=== PATIENT | female | born 1945 | race Caucasian/White ===

== ENCOUNTER 2016-08-04 02:23 | Inpatient (IN) | payer BC, OTHER ==
[2016-08-04] VITALS (28 sets, daily range): BP systolic 74–152; BP diastolic 48–88; PULSE 80–176; TEMP 36.4–36.8; O2SAT 90–100; BMI 21.1
[~2016-08-04] VITALS: Ht 165.1 cm; Wt 72.0 kg
[~2016-08-04 02:23] MED LIST: ALEN70TA4 PO; ARTIOIN27 OPR; CHOL100010 PO; INSUINJ SC; INSUINJ17 SC; LISI-789 PO; LORA0.5T12 PO; METH5TAB5 PO; MULTTAB83 PO; POLY1DRO OPR; SIMV5TAB5 PO
--- NOTE | 2016-08-04 03:13 | EMERGENCY ROOM VISIT NOTE ---
History Report prepared by Colette: Mai West Under the Supervision of: Dr. Carol Quinteros D.O. First contact with patient: 02:49 Chief Complaint: FLU LIKE SX Stated Complaint: DIABETIC -SICK WITH FLU TUE,WEAK,RIB PAIN History of Present Illness The patient is a 71 year old female who presents to the Emergency Room with complaints of worsening illness symptoms beginning 5 weeks ago. The patient has seen many doctors for her symptoms and was first told she had Influenza. The patient was told to drunk plenty of fluids. She is a diabetic. The patient has a wet cough that has been worsening and pain in the lower right side of her ribs. She has also been experiencing weakness, excess diaphoresis, and chills. She denies abdominal pain. 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 A total of 10 systems reviewed and were otherwise negative. Past Medical & Surgical Medical Problems: (1) Altered mental status (2) Altered mental status (3) Dyslipidemia (4) Hypoglycemia (5) Hypoglycemia (6) Hypoglycemia (7) Osteoporosis Nos (8) Pneumonia (9) Type 1 diabetes Surgical Problems: (1) Hip fracture requiring operative repair Family History Diabetes mellitus Social History Smoking Status: Never Smoker Alcohol Use: none Drug Use: none Marital Status: Housing Status: lives with family Occupation Status: retired Current/Historical Medications Scheduled Alendronate Sodium (Fosamax), 70 MG PO WK Artificial Tear Ointment (Refresh P.m.), 1 APPLN OPR HS Cholecalciferol (Vitamin D3), 1,000 UNIT PO DAILY Insulin Human NPH (Humulin N), UNITS SQ BID Insulin Human Regular (Humulin R), UNITS SQ QAM Lisinopril (Zestril), 1.25 MG PO QAM Lorazepam (Lorazepam), 1 TAB PO HS Multiple Vitamin (Multi-Vitamin), 1 TAB PO DAILY Polyethylene Glycol-Propylene (Systane Gel), 1 DROP OPR HS Simvastatin (Zocor), 5 MG PO HS Allergies Coded Allergies: Adhesives (Verified Allergy, Mild, RASH-BANDAIDS, 08/04/16) Sulfa Antibiotics (Verified Allergy, Unknown, `, 08/04/16) Physical Exam Vital Signs Date Time Temp Pulse Resp B/P Pulse Ox O2 Delivery O2 Flow Rate FiO2 08/04/16 05:12 36.4 108 26 108/58 92 08/04/16 05:11 108 26 108/58 92 Nasal Cannula 6.0 08/04/16 04:32 36.4 105 28 115/70 91 Nasal Cannula 6.0 08/04/16 04:03 112 26 116/69 88 Nasal Cannula 5.0 08/04/16 03:32 104 08/04/16 03:30 104 26 128/69 90 Nasal Cannula 5.0 08/04/16 03:11 90 Nasal Cannula 4.0 08/04/16 03:08 88 Nasal Cannula 3.0 08/04/16 02:53 90 Nasal Cannula 2.0 08/04/16 02:32 36.5 116 18 138/81 86 Room Air Physical Exam General: Uncomfortable appearing with moist cough. The patient is somewhat cachectic appearing HEENT: Head - normocephalic and atraumatic Pupils are equal, round, and reactive to light. Extraocular eye muscles are intact, and sclera are anicteric. Nose - moist nasal mucosa without discharge. Mouth - moist buccal mucosa. Oropharynx is nonerythematous and there is no tonsillar exudate or edema noted. Neck: Supple; no JVD, nuchal rigidity, cervical lymphadenopathy. Heart: Regular rate and rhythm. There is a normal S1 and S2 with no murmurs, clicks, or gallops appreciated. Chest: Nonreproducible discomfort with palpation over anterior chest wall. Lungs: Absent right bases, rhonchi bilaterally. Abdomen: Soft, completely nontender, nondistended, with good bowel sounds. There are no palpable pulsatile masses or hepatosplenomegaly. There is no guarding, rigidity, or rebound noted. Extremities: No evidence of cyanosis, clubbing, or edema. There are easily palpable peripheral pulses. Skin: pale, warm and dry with good turgor and no rashes. Medical Decision & Procedures ER Provider Diagnostic Interpretation: X-ray results as stated below per interpretation by me: Chest: Large right side middle and lower pneumonia. Laboratory Results 08/04/16 03:15 Red Blood Count 4.69, Mean Corpuscular Volume 90.2, Mean Corpuscular Hemoglobin 31.6, Mean Corpuscular Hemoglobin Concent 35.0, Mean Platelet Volume 11.1 08/04/16 03:15 Test 08/04/16 03:15 08/04/16 03:19 White Blood Count 8.70 K/uL (4.8-10.8) Red Blood Count 4.69 M/uL (4.2-5.4) Hemoglobin 14.8 g/dL (12.0-16.0) Hematocrit 42.3 % (37-47) Mean Corpuscular Volume 90.2 fL (80-100) Mean Corpuscular Hemoglobin 31.6 pg (25-34) Mean Corpuscular Hemoglobin Concent 35.0 g/dl (32-36) Platelet Count 252 K/uL (130-400) Mean Platelet Volume 11.1 fL (7.4-10.4) RDW Standard Deviation 46.1 fL (36.4-46.3) RDW Coefficient of Variation 13.9 % (11.5-14.5) Neutrophils % (Manual) 80.1 % Lymphocytes % (Manual) 11.3 % Monocytes % (Manual) 1.7 % Metamyelocytes % 5.2 % Myelocytes % 1.7 % Neutrophils # (Manual) 6.97 K/uL (1.4-6.5) Total Absolute Neutrophils 6.97 K/uL (1.4-6.5) Lymphocytes # (Manual) 0.98 K/uL (1.2-3.4) Total Absolute Lymphocytes 0.98 K/uL (1.2-3.4) Monocytes # (Manual) 0.15 K/uL (0.11-0.59) Metamyelocytes # 0.45 K/uL (0-0) Myelocytes # 0.15 K/uL (0-0) Toxic Granulation 3+ Toxic Vacuolation 2+ Prothrombin Time 12.4 SECONDS (9.0-12.0) Prothromb Time International Ratio 1.2 (0.9-1.1) Activated Partial Thromboplast Time 30.7 SECONDS (21.0-31.0) Partial Thromboplastin Ratio 1.2 Anion Gap 15.0 mmol/L (3-11) Est Creatinine Clear Calc Drug Dose 32.6 ml/min Estimated GFR () 43.7 Estimated GFR (Non- 37.7 BUN/Creatinine Ratio 32.0 (10-20) Calcium Level 8.3 mg/dl (8.5-10.1) Total Bilirubin 1.2 mg/dl (0.2-1) Aspartate Amino Transf (AST/SGOT) 118 U/L (15-37) Alanine Aminotransferase (ALT/SGPT) 68 U/L (12-78) Alkaline Phosphatase 149 U/L (45-117) Total Protein 6.8 gm/dl (6.4-8.2) Albumin 2.2 gm/dl (3.4-5.0) Globulin 4.6 gm/dl (2.5-4.0) Albumin/Globulin Ratio 0.5 (0.9-2) Bedside Lactic Acid Venous 6.34 mmol/L (0.90-1.70) Laboratory results per my review. Medications Administered Medications (Trade) Dose Ordered Sig/Sarthak Route Start Time Stop Time Status Last Admin Dose Admin Piperacillin Sod/ Tazobactam Sod (Zosyn Iv) 3.375 gm NOW STAT IV 08/04/16 03:43 08/04/16 03:45 DC 08/04/16 04:05 3.375 GM Levofloxacin 750 mg 750 mg NOW ONCE IV 08/04/16 03:45 08/04/16 03:46 DC 08/04/16 03:54 750 MG Vancomycin HCl/ Sodium Chloride (Vancomycin Inj/ Nss 250ml) 277 ml @ 125 mls/hr NOW STAT IV 08/04/16 04:56 08/04/16 07:08 08/04/16 05:10 125 MLS/HR Procedure IV Zosyn IV Levaquin ECG Indication: other (illness) Rate (beats per minute): 109 Rhythm: sinus tachycardia Findings: no acute ischemic change, no ectopy ED Course 0255: Past medical records reviewed. The patient was evaluated in room A10. A complete history and physical exam was performed. a septic protocol was performed. An EKG was obtained. 0308: The patient is hypoxic and will be put on oxygen. The patient went for a chest x-ray which revealed a large right-sided pneumonia. 0343: Zosyn Iv 3.375 gm IV, Levaquin / D5W 750 mg IV. 0348: Discussed the patient's case with Dr. Arthur Pacheco [facility]. The patient will be evaluated for further management. 0403: Upon reevaluation, I discussed findings and results with the patient. She verbalized agreement of the treatment plan. I spoke with Dr. Gibson of the [facility] Hospitalist Service. The patient will be evaluated for further management and care. 0437: Dr. Peters - [facility] ordered CT chest without contrast. The results showed pneumonia in the right middle and lower lobe. Medical Decision The patient is a 71 year old female who presents to the ED with illness symptoms. Differential diagnosis includes influenza, pneumonia, bronchitis, CHF. Lab findings show lactic acid 6.34, white blood cell count 8.7, stable H&H, 80% neutrophils, 5.2%metamyelocytes, BUN 45, creatine 1.4, glucose 167, total Bilirubin 1.2, AST 118, ALT 68, INR 1.2 The patient states that she's been sick for the past 5 weeks and now has a wet cough. She states that her anterior rib cage hurts significantly and believes that she may broken a rib. She had been to an urgent care center where they told her that she had a viral illness that was not influenza. She has not had a chest x-ray done in the last 5 weeks. Chest x-ray today shows significant pneumonia. This is consistent with her physical exam. The patient was hypoxic and is now on supplemental oxygen. She is receiving IV antibiotics. She will be evaluated by the [facility] hospitalist group. Consults Time Called: [phone] Consulting Physician: Dr. Arthur Pacheco [facility] Returned Call: [phone] Discussed the patient's case. The patient will be evaluated for further management. Impression Primary Impression: Pneumonia involving right lung Additional Impression: Hypoxia Scribe Attestation The scribe's documentation has been prepared under my direction and personally reviewed by me in its entirety. I confirm that the note above accurately reflects all work, treatment, procedures, and medical decision making performed by me. Departure Information Dispostion Being Evaluated By Hospitalist Referrals Steve Xie M.D. (PCP) Problem Qualifiers
[2016-08-04 03:35] LABS: HEMATOCRIT 42.3 % (37-47); MEAN CELL VOLUME 90.2 fL (80-100); MEAN CORPUSCULAR HEMOGLOBIN 31.6 pg (25-34); MEAN PLATELET VOLUME 11.1 fL (7.4-10.4); PLATELET COUNT 252 K/uL (130-400); RED BLOOD COUNT 4.69 M/uL (4.2-5.4)
[2016-08-04] MEDS ORDERED: PIPERACILLIN/TAZOBACTAM 3.375 GM/100ML D5W IV STA (03:43)
[2016-08-04] MEDS ORDERED: LEVAQUIN 750MG / 150ML D5W IV ONE (03:45)
[2016-08-04 03:51] LABS: INR 1.2 (0.9-1.1); PARTIAL THROMBOPLASTIN RATIO 1.2; PROTHROMBIN TIME (PATIENT) 12.4 SECONDS (9.0-12.0)
[2016-08-04 03:55] LABS: CALCIUM 8.3 mg/dl (8.5-10.1); CREATININE 1.4 mg/dl (0.60-1.20); POTASSIUM 3.6 mmol/L (3.5-5.1)
[2016-08-04 03:58] LABS: ALB/GLOB RATIO 0.5 (0.9-2)
[2016-08-04] MEDS ORDERED: CHOL1000 PO (03:59)
[2016-08-04] MEDS ORDERED: POLY1DRO2 OPR (04:00)
[2016-08-04] MEDS ORDERED: INSHNI SQ (04:02)
[2016-08-04] MEDS ORDERED: INSHRIE SQ (04:02)
[2016-08-04 04:14] LABS: COMPLETE YES; LYMPH ABS # 0.98 K/uL (1.2-3.4); LYMPHOCYTE % 11.3 %; META ABS # 0.45 K/uL (0-0); METAMYELOCYTE % 5.2 %; MYELOCYTE % 1.7 %; NEUTROPHILS % 80.1 %; TOXIC GRANULATION 3+; VACUOLIZATION 2+
[2016-08-04] MEDS ORDERED: GLUCOSE 40% GEL 15 GM TUBE PO PRN (04:30)
[2016-08-04] MEDS ORDERED: NITROGLYCERIN 0.4 MG SL PER TAB CHARGE SL PRN (04:30)
[2016-08-04] MEDS ORDERED: ACETAMINOPHEN 325 MG TAB PO PRN (04:30)
[2016-08-04] MEDS ORDERED: POLYETHYLENE (MIRALAX) 17 GM PACK PO PRN (04:30)
[2016-08-04] MEDS ORDERED: MAGNESIUM HYDROXIDE SUSP 30 ML UDC PO PRN (04:30)
[2016-08-04] MEDS ORDERED: GLUCOSE 10 TABS/TUBE PO PRN (04:30)
[2016-08-04] MEDS ORDERED: ONDANSETRON INJ 2 MG/ML 2 ML VIAL IV PRN (04:30)
[2016-08-04] MEDS ORDERED: GLUCAGON FOR INJ 1 MG VIAL SQ PRN (04:30)
[2016-08-04] MEDS ORDERED: ALUMINUM/MAGNESIUM/SIMETH (MAALOX MAX) 30 ML UDC PO PRN (04:30)
[2016-08-04] MEDS ORDERED: VANCOMYCIN INJ 1,350 MG in SODIUM CHLORIDE 0.9% 250ML 250 ML IV STA (04:56)
[2016-08-04] MEDS ORDERED: LEVOFLOXACIN CONSULT ACTIVE PRN (05:00)
[2016-08-04] MEDS ORDERED: VANCOMYCIN CONSULT ACTIVE PRN (05:00)
[2016-08-04] MEDS ORDERED: PIPERACILL/TAZOBAC CONSULT ACTIVE PRN (05:00)
--- NOTE | 2016-08-04 05:20 | History and Physical ---
History & Physical Date & Time of Service: Aug 04, 2016 at 05:15 Chief Complaint: Diabetic -Sick With Flu Tue,Weak,Rib Pain Primary Care Physician: Steve Xie M.D. History of Present Illness Source: patient, family This is a 71 y/o F who presents with a 5 day history of shortness of breath, chest pain, weakness. She reports having had similar symptoms back in April and May, for which she had seen her PCP's office. She reports that no further workup was done. She was seen at [facility] 2 days ago and was told she had the "[place] crud." However, she continued to decompensate and become progressively more short of breath. Her chest pain is primarily right sided and she refers to it as "rib pain" that is worse with coughing. She also has subjective fevers, chills and diarrhea. She has not been able to do much at home over the last few days due to her illness. She is concerned about her blood sugars being managed appropriately while in the hospital. 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- sees [facility]- reports good visual acuity currently Past Medical/Surgical History Medical Problems: (1) Altered mental status Status: Resolved (2) Altered mental status Status: Resolved (3) Dyslipidemia Status: Chronic (4) Hypoglycemia Status: Resolved (5) Hypoglycemia Status: Resolved (6) Hypoglycemia Status: Resolved (7) Osteoporosis Nos Status: Chronic (8) Type 1 diabetes Status: Chronic Surgical Problems: (1) Hip fracture requiring operative repair Status: Resolved Family History Diabetes mellitus Social History Smoking Status: Never Smoker Alcohol Use: none Drug Use: none Marital Status: Housing status: lives with family Occupational Status: retired Multi-Drug Resistant Organisms History of MDRO: No Allergies Coded Allergies: Adhesives (Verified Allergy, Mild, RASH-BANDAIDS, 08/04/16) Sulfa Antibiotics (Verified Allergy, Unknown, `, 08/04/16) Home Medications Scheduled Alendronate Sodium (Fosamax), 70 MG PO WK Artificial Tear Ointment (Refresh P.m.), 1 APPLN OPR HS Cholecalciferol (Vitamin D3), 1,000 UNIT PO DAILY Insulin Human NPH (Humulin N), UNITS SQ BID Insulin Human Regular (Humulin R), UNITS SQ QAM Lisinopril (Zestril), 1.25 MG PO QAM Lorazepam (Lorazepam), 1 TAB PO HS Multiple Vitamin (Multi-Vitamin), 1 TAB PO DAILY Polyethylene Glycol-Propylene (Systane Gel), 1 DROP OPR HS Simvastatin (Zocor), 5 MG PO HS Review of Systems Constitutional: + chills, + fever, + sweats, + weakness Respiratory: + cough, + dyspnea at rest, + dyspnea on exertion, + shortness of breath, + sputum Cardiovascular: + chest pain Abdomen: + diarrhea, + nausea, + vomiting Genitourinary - Female: No dysuria, No urinary frequency, No urinary urgency Physical Exam Vital Signs Date Time Temp Pulse Resp B/P Pulse Ox O2 Delivery O2 Flow Rate FiO2 08/04/16 05:12 36.4 108 26 108/58 92 08/04/16 05:11 108 26 108/58 92 Nasal Cannula 6.0 08/04/16 04:32 36.4 105 28 115/70 91 Nasal Cannula 6.0 08/04/16 04:03 112 26 116/69 88 Nasal Cannula 5.0 08/04/16 03:32 104 08/04/16 03:30 104 26 128/69 90 Nasal Cannula 5.0 08/04/16 03:11 90 Nasal Cannula 4.0 08/04/16 03:08 88 Nasal Cannula 3.0 08/04/16 02:53 90 Nasal Cannula 2.0 08/04/16 02:32 36.5 116 18 138/81 86 Room Air General Appearance: no apparent distress, + cachetic, + thin Eyes: EOMI, + pertinent finding (Right pupil > Left pupil, Right pupil does not constrict to light- pre-existing from eye surgery) ENT: hearing grossly normal Neck: supple, no adenopathy Respiratory/Chest: + decreased breath sounds (Right mid to lower lung bases), + crackles Cardiovascular: no edema, no murmur, + tachycardia Abdomen/GI: normal bowel sounds, non tender, soft Back: normal inspection, no CVA tenderness Extremities/Musculoskelatal: no calf tenderness, normal capillary refill, no pedal edema Neurologic/Psych: validation technician II-XII nml as tested, no motor/sensory deficits, alert, oriented x 3, + depressed affect Diagnostics Laboratory Results Results Past 24 Hours Test 08/04/16 03:15 08/04/16 03:19 Range/Units White Blood Count 8.70 4.8-10.8 K/uL Red Blood Count 4.69 4.2-5.4 M/uL Hemoglobin 14.8 12.0-16.0 g/dL Hematocrit 42.3 37-47 % Mean Corpuscular Volume 90.2 80-100 fL Mean Corpuscular Hemoglobin 31.6 25-34 pg Mean Corpuscular Hemoglobin Concent 35.0 32-36 g/dl Platelet Count 252 130-400 K/uL Mean Platelet Volume 11.1 7.4-10.4 fL RDW Standard Deviation 46.1 36.4-46.3 fL RDW Coefficient of Variation 13.9 11.5-14.5 % Neutrophils % (Manual) 80.1 % Lymphocytes % (Manual) 11.3 % Monocytes % (Manual) 1.7 % Metamyelocytes % 5.2 % Myelocytes % 1.7 % Neutrophils # (Manual) 6.97 1.4-6.5 K/uL Total Absolute Neutrophils 6.97 1.4-6.5 K/uL Lymphocytes # (Manual) 0.98 1.2-3.4 K/uL Total Absolute Lymphocytes 0.98 1.2-3.4 K/uL Monocytes # (Manual) 0.15 0.11-0.59 K/uL Metamyelocytes # 0.45 0-0 K/uL Myelocytes # 0.15 0-0 K/uL Toxic Granulation 3+ Toxic Vacuolation 2+ Prothrombin Time 12.4 9.0-12.0 SECONDS Prothromb Time International Ratio 1.2 0.9-1.1 Activated Partial Thromboplast Time 30.7 21.0-31.0 SECONDS Partial Thromboplastin Ratio 1.2 Sodium Level 143 136-145 mmol/L Potassium Level 3.6 3.5-5.1 mmol/L Chloride Level 105 98-107 mmol/L Carbon Dioxide Level 23 21-32 mmol/L Anion Gap 15.0 3-11 mmol/L Blood Urea Nitrogen 45 7-18 mg/dl Creatinine 1.40 0.60-1.20 mg/dl Est Creatinine Clear Calc Drug Dose 32.6 ml/min Estimated GFR () 43.7 Estimated GFR (Non- 37.7 BUN/Creatinine Ratio 32.0 10-20 Random Glucose 167 70-99 mg/dl Calcium Level 8.3 8.5-10.1 mg/dl Total Bilirubin 1.2 0.2-1 mg/dl Aspartate Amino Transf (AST/SGOT) 118 15-37 U/L Alanine Aminotransferase (ALT/SGPT) 68 12-78 U/L Alkaline Phosphatase 149 45-117 U/L Total Protein 6.8 6.4-8.2 gm/dl Albumin 2.2 3.4-5.0 gm/dl Globulin 4.6 2.5-4.0 gm/dl Albumin/Globulin Ratio 0.5 0.9-2 Bedside Lactic Acid Venous 6.34 0.90-1.70 mmol/L Microbiology Results 08/04/16 Blood Culture, Received Pending 08/04/16 Blood Culture, Received Pending Impression Assessment and Plan This is a 71 y/o F who presents with a 5 day history of shortness of breath, cough, weakness and 2/2 to Pneumonia. There is concern for underlying malignancy given severe pneumonia/effusions and patients cachectic appearance. Acute hypoxic Resp Failure 2/2 severe Lobar pneumonia with effusions Consistent with X-ray Findings and Lung exam Started on Levaquin, Zosyn and Vancomycin Sputum Cultures CT scan of chest without contrast- pending Currently on 6 L Consult Thoracic Surgery for possible drainage pleurx Xoponex and atrovent Repeat lactate pending procal pending AZUCENA Gentle IVF Trend BMP Type I Diabetes Patient is very concerned about her blood sugars BSG AC/HS Will add ISS and Keep Humulin BID at patients request HTN On small dose of lisinopril- will hold in light of AZUCENA Repeat BMP Elevated Liver enzymes: Repeat CMP Could consider an USG or CT if persistent elevation DVT proph Lovenox Code: Full Level of Care Telemetry VTE Prophylaxis VTE Risk Assessment Done? Y/N: Yes Risk Level: Moderate Assessment and Plan Attending Addendum: X I have physically seen and examined this patient, have directed their medical care, have supervised the medical residents activities, and agree with the H&P as noted above, with the following changes: The patient is awake, alert and oriented 3, mildly cachectic, normocephalic and atraumatic, lying in bed and in no acute distress. HEENT--PERRL, EOMI, mucous membranes and oropharynx dry. Neck--supple, no JVD or bruits, thyroid normal, trachea midline, no adenopathy. Heart--tachycardic and regular, no extra beats, no murmurs, rubs or gallops. Lungs--decreased breath sounds at the right base to two thirds of the way up, and decreased breath sounds at the left base one third of the way up, no respiratory distress, no accessory muscle use. Abdomen--normal bowel sounds and soft, nontender and nondistended, no hernias or masses, no organomegaly. Extremities--no cyanosis, clubbing. There is bilaterally trace pitting Edema. There are good distal pulses b/l. Dermatologic--normal skin turgor, normal color, warm and dry, no abnormal lymph nodes, no rash. Neurologic--cranial nerves II through XII grossly intact, motor and sensory examination normal. Rheumatologic--normal range of motion, nontender, muscles and joints. Psychiatric--normal affect. Assessment and Plan: Acute respiratory failure with hypoxia secondary to severe lobar pneumonia right greater than left with parapneumonic effusion--the patient will be admitted to the telemetry unit for close oxygen monitoring. She'll be placed on vancomycin IV per renal dosing, Zosyn 3.375 mg IV every 8 hours, levofloxacin 500 mg IV every 24 hours, guaifenesin extended release Sinemet milligrams by mouth twice a day, Xopenex with Atrovent nebulizers to use every 6 hours while awake and every 2 hours when necessary, and presently is on 6 L is a cannula oxygen humidified and pulse ox 92%. She was initially 86% on room air. I'm concerned about the possibility of underlying malignancy. CT of the chest with and without contrast due to her renal dysfunction. We will hydrate with IV fluids, to try to improve kidney function, severely reduced CT chest with contrast to look for possible underlying malignancy. We'll consult thoracic surgery and/or pulmonology for possible thoracentesis. If the patient' s condition were to worsen, she would likely need to go to BiPAP as her next step. Diabetes mellitus--continue Humulin and subcutaneous twice a day. Hold Humulin R subcutaneous every morning. Place on Accu-Cheks before meals and at bedtime with NovoLog coverage. Hypertension, renal insufficiency--hold lisinopril. Hydrate as noted above, and repeat BMP and magnesium level in a.m. Anxiety/insomnia--continue lorazepam at bedtime. Hypercholesterolemia--continue simvastatin 5 mg by mouth at bedtime. Dry eye--continue artificial tear ointment at bedtime and Systane gel at bedtime. Osteoporosis takes Fosamax 70 mg weekly in the outpatient setting.
[2016-08-04] MEDS: SODIUM CHLORIDE 0.9% 1000ML 1,000 ML IV SCH (06:00)
--- NOTE | 2016-08-04 06:09 | Pharmacy Progress Note ---
Pharmacy Antibiotic Consult Date of Service: Aug 04, 2016. Pharmacy Dosing Scope * Pharmacy is consulted to initiate Vancomycin IV dosing therapy, order appropriate labs and adjust drug dose/frequency. Subjective * The patient is a 71 year old female admitted on Aug 04, 2016 at 04:37 for hypoxia/pneumonia. Objective Height (Feet): 5 Height (Inches): 6.00 Weight (Kilograms): 56.000 Lab Results (24hrs): Laboratory Tests Test 08/04/16 03:15 BUN/Creatinine Ratio 32.0 Blood Urea Nitrogen 45 mg/dl Creatinine 1.40 mg/dl White Blood Count 8.70 K/uL Red Blood Count 4.69 M/uL Hemoglobin 14.8 g/dL Hematocrit 42.3 % Mean Corpuscular Volume 90.2 fL Mean Corpuscular Hemoglobin 31.6 pg Mean Corpuscular Hemoglobin Concent 35.0 g/dl Platelet Count 252 K/uL Mean Platelet Volume 11.1 fL Micro Results: * Blood results are pending Recent Pertinent Medications * Patient is also receiving Zosyn 3.375gm IV every 8 hours and Levaquin 750mg IV every 48 hours. Assessment & Plan * Loading dose: 1350mg IV (~ 24.1mg/kg) X 1 then 700mg IV (~12.5mg/kg) every 24 hours. * Goal trough level estimate: between 16-18 mcg/mL. * Trough level is ordered for 08/07/16 at 0430 just prior to the 4th dose. * It is possible that the patients renal function may improve with a day or two of fluids. Pharmacy will follow and dose accordingly. Pharmacy will continue to follow and will adjust dose/frequency as necessary. Thank you
[2016-08-04] MEDS ORDERED: INSULIN ASPART 100 UNITS/ML 3 ML PEN SC SCH (06:45)
--- NOTE | 2016-08-04 06:55 | DIAGNOSTIC IMAGING REPORT ---
CT OF THE CHEST WITHOUT IV CONTRAST CLINICAL HISTORY: Chest wall pain, weakness, flulike symptoms, abnormal chest x-ray. COMPARISON STUDY: Chest x-ray dated 08/04/2016 CT DOSE: 199.81 mGy.cm TECHNIQUE: CT of the thorax was performed from the thoracic inlet to the lung bases. Images are reviewed in the axial, sagittal, and coronal planes. IV contrast was not administered for this examination. FINDINGS: Thyroid: Imaged portions of the thyroid gland are normal in appearance. Thoracic aorta: The thoracic aorta is normal in course and caliber, noting standard 3 vessel arch anatomy. Heart: There are coronary artery calcifications present. Lungs and pleural spaces: There is a small right pleural effusion. There is an azygos fissure. There is extensive masslike consolidation of the right lower lobe with obstruction of right lower lobe bronchus. Airspace opacities are also present within the right middle lobe, and left lower lobe. Mediastinum: Precarinal lymph nodes are the upper limits of normal in size Dominique: Hilar structures are difficult to evaluate due to the lack of intravenous contrast and the dense parenchymal consolidation Axilla: Clear. Upper abdomen: Partially visualized upper abdominal viscera is within normal limits. Skeletal structures: The bones are osteopenic. There are multiple thoracic compression deformities which are likely old. IMPRESSION: 1. Dense consolidation of the right lower lobe with obstruction of right lower lobe bronchus. Airspace opacities within the right middle lobe and left lower lobe. The findings are consistent with a multilobar pneumonia. An underlying obstructing mass cannot be excluded and close follow-up will be necessary. Small right pleural effusion Electronically signed by: Oz Waters M.D. 08/04/2016 6:53 AM Dictated Date/Time: 08/04/2016 6:49 AM
--- NOTE | 2016-08-04 07:14 | DIAGNOSTIC IMAGING REPORT ---
TWO VIEW CHEST CLINICAL HISTORY: Cough. FINDINGS: PA and lateral chest radiographs are compared to study dated 02/20/2015. The cardiomediastinal silhouette is unremarkable. There is atherosclerotic calcification of the thoracic aorta. Accessory azygous fissure is incidentally noted. Emphysema and chronic interstitial thickening are identified. There is dense patchy consolidation throughout the right mid to lower lung with a right pleural effusion. Consolidative changes also seen at the medial left lung base. There is no pneumothorax. The skeletal structures are osteopenic. A mild compression deformity is noted in the lower thoracic spine. IMPRESSION: 1. There is patchy airspace consolidation throughout the right mid to lower lung with a right pleural effusion. Consolidative change is also seen at the medial left lung base. The appearance suggests multifocal pneumonia. Radiographic follow-up to resolution is recommended. 2. Suspect emphysema. Electronically signed by: Yefri Chen M.D. 08/04/2016 7:13 AM Dictated Date/Time: 08/04/2016 7:11 AM
[2016-08-04] MEDS ORDERED: MIDAZOLAM HCL 5 MG/ML 2ML VIAL IV ONE (07:32)
[2016-08-04] MEDS ORDERED: KETAMINE HCL INJ 50 MG/ML 10 ML VIAL IV ONE (07:32)
[2016-08-04] MEDS ORDERED: FENTANYL CITRATE INJ 50 MCG/1 ML 2 ML VIAL IV ONE ×2 (07:32→20:15)
[2016-08-04] MEDS ORDERED: VECURONIUM BROMIDE 10 MG VIAL IV ONE (07:32)
[2016-08-04] MEDS ORDERED: IPRATROPIUM BROMIDE NEB SOLN 0.02% 2.5 ML VIAL INH SCH (08:00)
[2016-08-04] MEDS: MULTIVITAMIN TAB PO SCH (08:37)
[2016-08-04] MEDS: PIPERACILL/TAZOBAC IV 3.375 GM in DEXTROSE 5% 100ML 100 ML IV SCH ×2 (08:41→16:05)
[2016-08-04] MEDS ORDERED: LIDOCAINE HCL 1% 20 ML VIAL ONE (08:46)
[2016-08-04] MEDS ORDERED: LISINOPRIL 2.5 MG TAB PO SCH (09:00)
[2016-08-04] MEDS ORDERED: ENOXAPARIN 40 MG/0.4 ML SYR SC SCH (09:00)
[2016-08-04] MEDS ORDERED: LEVALBUTEROL 1.25MG/3ML NEB INH SCH (09:00)
[2016-08-04] MEDS ORDERED: INSULIN HUMAN NPH SQ SCH ×2 (09:00→18:00)
[2016-08-04 09:31] LABS: BUN/CREATININE RATIO 40.8 (10-20); CREATININE 1.2 mg/dl (0.60-1.20)
[2016-08-04 09:32] LABS: CALCIUM 8.4 mg/dl (8.5-10.1); POTASSIUM 3.6 mmol/L (3.5-5.1)
[2016-08-04 09:34] LABS: ALB/GLOB RATIO 0.4 (0.9-2)
[2016-08-04] MEDS ORDERED: PHARMACY GLYCEMIC MGMT CONSULT PRN (10:51)
[2016-08-04] MEDS ORDERED: LACTATED RINGER'S 1000ML 1,000 ML IV ONE ×3 (11:09→19:30)
[2016-08-04] MEDS: POTASSIUM CHLR 10MEQ / WTR IV SCH ×2 (11:15→12:15)
[2016-08-04] MEDS ORDERED: INSULIN HUMAN NPH SQ ONE (11:15)
[2016-08-04] MEDS ORDERED: RAPID SEQUENCE INDUCTION BAG ONE (11:30)
[2016-08-04 11:55] LABS: ISTAT ALLEN TEST Pass; ISTAT ARTERIAL BLOOD GAS HCO3 18 meq/L (19-24); ISTAT ARTERIAL BLOOD GAS PCO2 33 mmHg (35-46); ISTAT ARTERIAL BLOOD GAS PO2 59 mmHg (80-95); ISTAT ARTERIAL BLOOD GAS pH 7.35 (7.35-7.45); ISTAT CARBON DIOXIDE 19 mEq/l (24-31); ISTAT DELIVERY SYSTEM SimpleMask; ISTAT SITE L Radial
[2016-08-04] MEDS ORDERED: ADENOSINE IV SOLN 3 MG/ML 2 ML VIAL ONE (12:05)
[2016-08-04 12:43] LABS: ESTIMATED AVERAGE GLUCOSE 186 mg/dl; HA1C FLAG Normal (Normal)
--- NOTE | 2016-08-04 13:25 | Pharmacy Progress Note ---
Pharmacy Antibiotic Prog Note Date of Service: Aug 04, 2016. Subjective: Pharmacy was consulted to dose VANCOMYCIN, LEVOFLOXACIN and ZOSYN on 08/04/16 Objective: Height (Feet): 5 Height (Inches): 6.00 Weight (Kilograms): 56.000 Lab Results (24hrs): Laboratory Tests Test 08/04/16 03:15 08/04/16 08:46 BUN/Creatinine Ratio 32.0 40.8 Blood Urea Nitrogen 45 mg/dl 49 mg/dl Creatinine 1.40 mg/dl 1.20 mg/dl White Blood Count 8.70 K/uL Red Blood Count 4.69 M/uL Hemoglobin 14.8 g/dL Hematocrit 42.3 % Mean Corpuscular Volume 90.2 fL Mean Corpuscular Hemoglobin 31.6 pg Mean Corpuscular Hemoglobin Concent 35.0 g/dl Platelet Count 252 K/uL Mean Platelet Volume 11.1 fL Micro Results: Blood cx's x 2 and sputum cx's collected negative MRSA nares Assessment & Plan: * Patient w/ acute hypoxic resp failure secondary to PNX, possible aspiration, and sepsis * Patient presented w/ AZUCENA, elevated LA, elevated procalcitonin * Patient has now been intubated VANCOMYCIN * received 1350 (~24mg/kg) load x 1 this AM * renal fxn slightly improved (SCr 1.4-->1.2), may continue to improve w/ fluid resuscitation, patient appeared dry on PE this AM per providers, LA elevated * will adjust vancomycin dose to 850mg (15mg/kg) IV Q 24 hours for trough 15- 20mcg/mL * will continue to obtain trough w/ 3rd maintenance dose * p'kinetic estimates: Vd 0.7L/kg; half-life ~19 hours; Dann 0.036 hr-1 ZOSYN * continue 3.375gm IV (over 4 hours) Q 8 hours for eCrCl > 20cc/min LEVOFLOXACIN * continue 750mg IV Q 48 hrs for eCrCl 20-49cc/min * QTc 428 Pharmacy will continue to follow and will adjust dose/frequency as necessary. Thank you
[2016-08-04] MEDS ORDERED: METOPROLOL TARTRATE 1 MG/ML VIAL ONE (13:52)
[2016-08-04] MEDS ORDERED: METOPROLOL TARTRATE 1 MG/ML VIAL IV STA (13:57)
[2016-08-04] MEDS ORDERED: FENTANYL CITRATE INJ 50 MCG/1 ML 2 ML VIAL ONE ×2 (14:07→20:23)
[2016-08-04] MEDS ORDERED: MIDAZOLAM HCL 1 MG/ML 2ML VIAL ONE ×2 (14:08→17:36)
[2016-08-04] MEDS ORDERED: SODIUM BICARB 8.4% INJ 50 MEQ/50 ML SYR IV ONE ×2 (14:13→14:18)
[2016-08-04] MEDS ORDERED: PHENYLEPHRINE IV PUSH KIT FOR ED IV ONE (14:20)
[2016-08-04 14:28] LABS: ISTAT ALLEN TEST Pass; ISTAT ARTERIAL BLOOD GAS HCO3 22 meq/L (19-24); ISTAT ARTERIAL BLOOD GAS PCO2 61 mmHg (35-46); ISTAT ARTERIAL BLOOD GAS PO2 82 mmHg (80-95); ISTAT ARTERIAL BLOOD GAS pH 7.16 (7.35-7.45); ISTAT CARBON DIOXIDE 23 mEq/l (24-31); ISTAT DELIVERY SYSTEM Ventilator; ISTAT FIO2 100 %; ISTAT PEEP 6; ISTAT RATE 18; ISTAT SITE Art Line; VE 8.9; Vt 450
[2016-08-04] MEDS: MAGNESIUM SULFATE 1GM / D5W 1 GM in PREMIXED IN D5W 100 ML IV SCH ×2 (14:30→15:51)
[2016-08-04] MEDS ORDERED: POTASSIUM CHLR 10 MEQ / WTR 10 MEQ in PREMIXED WATER 100 ML IV SCH (14:30)
[2016-08-04] MEDS ORDERED: PHENYLEPHRINE 100MCG/ML 5ML SYR IV ONE (14:30)
[2016-08-04] MEDS: POTASSIUM CHLR 20MEQ / WTR IV SCH ×3 (14:30→17:32)
[2016-08-04] MEDS ORDERED: DORNASE ALFA (2500U) 2.5MG/2.5ML INH STA (14:31)
[2016-08-04 14:39] LABS: MAGNESIUM 1.9 mg/dl (1.8-2.4); PHOSPHORUS 3.1 mg/dl (2.5-4.9); THYROID STIMULATING HORMONE 4.45 uIu/ml (0.300-4.500)
--- NOTE | 2016-08-04 15:02 | DIAGNOSTIC IMAGING REPORT ---
SINGLE VIEW CHEST CLINICAL HISTORY: Intubation. Line placements. FINDINGS: 2 AP, portable, upright chest radiographs are compared to chest x-ray and chest CT performed earlier the same day 08/04/2016. An endotracheal tube has been placed. The tip of the catheter projects 3.4 cm above the giorgio. An enteric tube has been placed. The tip of the catheter projects below the diaphragm over the stomach. A right internal jugular central venous catheter has been placed. The tip of the catheter projects over the SVC. The cardiomediastinal silhouette is unremarkable. There is atherosclerotic calcification of the thoracic aorta. An accessory azygous fissure is incidentally noted. Emphysema and chronic interstitial thickening are identified. There is dense patchy consolidation throughout the right mid to lower lung with a right pleural effusion. Consolidative changes also seen at the medial left lung base. This is unchanged from earlier today. There is no pneumothorax. The skeletal structures are osteopenic. A mild compression deformity is noted in the lower thoracic spine. IMPRESSION: 1. Endotracheal and enteric tubes have been placed as above. 2. A right internal jugular central venous catheter has been placed. No pneumothorax is seen post procedure. 3. There is patchy airspace consolidation throughout the right mid to lower lung with a right pleural effusion. Consolidative change is also seen at the medial left lung base. These findings are unchanged from today's earlier examinations. 4. Suspect emphysema. Electronically signed by: Yefri Chen M.D. 08/04/2016 3:00 PM Dictated Date/Time: 08/04/2016 2:57 PM
--- NOTE | 2016-08-04 15:46 | Pharmacy Progress Note ---
Glycemic Control Intl Consult Date of Service Aug 04, 2016. Scope Glycemic Pharmacist consulted by Dr Huang on 08/04/16 for glycemic control and to write orders per [facility] inpatient glycemic control protocol Objective Weight (Kilograms): 56.000 Accuchecks BSG (last 24hrs): Test 08/04/16 03:15 08/04/16 06:28 08/04/16 08:46 Random Glucose 167 mg/dl (70-99) 169 mg/dl (70-99) Bedside Glucose 135 mg/dl (70-90) Laboratory Data (last 24hrs) Test 08/04/16 03:15 08/04/16 08:46 Anion Gap 15.0 mmol/L 15.0 mmol/L BUN/Creatinine Ratio 32.0 40.8 Blood Urea Nitrogen 45 mg/dl 49 mg/dl Creatinine 1.40 mg/dl 1.20 mg/dl Potassium Level 3.6 mmol/L 3.6 mmol/L Sodium Level 143 mmol/L 140 mmol/L White Blood Count 8.70 K/uL Red Blood Count 4.69 M/uL Hemoglobin 14.8 g/dL Hematocrit 42.3 % Mean Corpuscular Volume 90.2 fL Mean Corpuscular Hemoglobin 31.6 pg Mean Corpuscular Hemoglobin Concent 35.0 g/dl Platelet Count 252 K/uL Mean Platelet Volume 11.1 fL Hemoglobin A1c 8.1 % HbA1c Test 08/04/16 08:46 Hemoglobin A1c 8.1 % (4.5-5.6) H Recent Pertinent Medications Outpatient Anti-diabetic Regimen: * NPH BID Per Scale * Humulin R SQ QAM per scale The patient is currently receiving: * Basal insulin: NPH 8 units every 12 hours * Correctional Insulin: Novolog Correction per scale ACHS Goal Range: Low 130 mg/dL - High 170 mg/dL Correction Factor: 20 mg/dL/unit * Prandial insulin: Per carb ratio of 1 unit per -- grams CHO consumed Risk Factors for Insulin Resistance: * Infection * Pressors * IVF * Mechanical Ventilation Assessment & Plan ASSESSMENT: * 71yo type 1 diabetic female with near adequate degree of outpatient control per recent A1c * Goal A1c ~ 7% based on age and co-morbidities * Uncertain what typical outpatient doses of both basal and prandial insulin are as med rec just says "per scale." Will need to clarify doses with family if possible since patient is intubated * Do not hold basal insulin in a type 1 diabetic --> will lead to ketosis and DKA * Additionally, Pt with significant stressors/risk factors for insulin resistance/hyperglycemia * Phenylephrine & Abx are mixed in dextrose but pt does not have ongoing D5 fluid orders --> may need to add dextrose to IVF for prolonged NPO in a type 1 diabetic * ADA & AACE recommend a goal blood sugar range 140-180 mg/dl for the majority of critically ill & non-critically ill patients. However, more stringent targets may be selected in individual cases. Will utilize a slightly more stringent target of 130-170mg/dl based on age & type 1 diabetes. PLAN FOR INPATIENT GLYCEMIC CONTROL: * Start IV insulin infusion per protocol if BSG > 250mg/dl * Goal Range 140 - 180 mg/dl * In the critical care setting, continuous IV insulin infusion has been shown to be the best method for achieving glycemic targets. * Give reduced Basal insulin dosing with NPH 5 units SQ BID while NPO * NovoLog per scale ACHS or Q6hrs while NPO * Goal Range: Low 130 mg/dL - High 170 mg/dL * Correction Factor: 40 mg/dL/unit * Nutritional / Prandial insulin per carb ratio of 1 unit per 14 grams CHO consumed * Please note that the plan above was derived based on current level of insulin resistance and hospital stress. These recommendations are appropriate for inpatient admission only. Plan of care upon discharge will need to be reassessed to avoid potential outpatient hypo/hyperglycemia. Thank you.
[2016-08-04 15:58] LABS: URINE APPEARANCE CLOUDY (CLEAR); URINE BILIRUBIN NEG (NEG); URINE COLOR DK YELLOW; URINE EPITHELIAL CELL AUTO >30 /lpf (0-5); URINE NITRITE NEG (NEG); URINE SPECIFIC GRAVITY 1.027 (1.000-1.030); UROBILINOGEN NEG (NEG); ZZUR CULT IF INDIC CLEAN CATCH NO
[2016-08-04 16:07] LABS: MANUAL MICROSCOPIC REQUIRED? NO; REVIEW REQ? YES
[2016-08-04] MEDS: PHENYLEPHRINE HCL INJ 20 MG in DEXTROSE 5% 500ML 500 ML IV PRN ×2 (16:07→19:34)
[2016-08-04 16:37] LABS: URINE PATH CASTS 5-10 GRANULAR CASTS /lpf (0)
--- NOTE | 2016-08-04 17:03 | Procedure Note ---
Procedure Note Date of Service Aug 04, 2016. (Claudio Ortiz MD) Procedure Note Pre-Procedure Diagnosis: Sepsis with Septic Shock Post-Procedure Diagnosis: Same Type of Procedure: Central Venous Catheter Placement Performing Physician: Dr. Claudio Ortiz Attending/Supervising Physician: Dr. Juan Joshi DO Indication: Administration of Vasopressors Consent: Detailed explanation of the procedure, treatment options, risks including but not limited to infection and bleeding, and benefits were explained to the patient and . A written informed consent was obtained by both and signed by the patient's . Consent form was placed in the patient's chart. Technique: A time out was preformed identifying the correct procedure, the correct location with the nursing staff. The right neck was prepped with 2% chlorhexidine and draped with a full length sterile sheet in the usual fashion. 1% lidocaine was administered subcutaneously for local anesthesia. The right internal jugular vein was accessed under ultrasound guidance with an 18 gauge thin wall needle. A Triple lumen was inserted via the Seldinger technique. Blood was withdrawn from all lumens and flushed with normal saline. The catheter was sutured in place and a sterile dressing was applied over the site prior to removal of drapes. The patient tolerated the procedure well and there were no complications. Post-procedure chest x-ray confirmed correct placement of the central line EBL: 3 cc Complication: None (Claudio Ortiz MD) I was physically present and assisted during the entire procedure. (Juan Joshi, D.O.)
[2016-08-04] MEDS: INSULIN ASPART 100 UNITS/ML 3 ML PEN SC SCH ×2 (17:21→17:46)
--- NOTE | 2016-08-04 18:07 | Critical Care Consultation ---
Critical Care Consultation Date of Consultation: Aug 04, 2016. Attending Physician: Ki Huang DO Reason for Consultation: Hypoxia Sepsis and Septic Shock Need for invasive hemodynamic monitoring History of Present Illness 71 year year-old female who reports malaise for the past 2-3 months and multiple visits to her PCP due to feeling unwell. More recently she has had 5 days of progressive shortness of breath, chest pain and weakness. She was seen at an urgent care centre and was told she had a viral URI that did not get antibiotic treatment. After being discharged, she continued to decompensate and her shortness of breath got acute worse. She denies any history of smoking or occupational exposure. She denies frequent hospitalizations. Her pain is on her right side that is exacerbated with coughing. Other active history includes Grave's disease and type I diabetes mellitus. She denies any history of asthma or COPD. Past Medical/Surgical History Medical Problems: (1) Ankle fracture, left Status: Acute (2) Dyslipidemia Status: Chronic (3) Hypoxia Status: Acute (4) Osteoporosis Nos Status: Chronic (6) Type 1 diabetes Status: Chronic Family History Diabetes mellitus Social History Smoking Status: Never Smoker Alcohol Use: none Drug Use: none Marital Status: Housing Status: lives with family Occupation Status: retired Allergies Coded Allergies: Adhesives (Verified Allergy, Mild, RASH-BANDAIDS, 08/04/16) Sulfa Antibiotics (Verified Allergy, Unknown, `, 08/04/16) Home Medications Scheduled Alendronate Sodium (Fosamax), 70 MG PO WK Artificial Tear Ointment (Refresh P.m.), 1 APPLN OPR HS Cholecalciferol (Vitamin D3), 1,000 UNIT PO DAILY Insulin Human NPH (Humulin N), UNITS SQ BID Insulin Human Regular (Humulin R), UNITS SQ QAM Lisinopril (Zestril), 1.25 MG PO QAM Lorazepam (Lorazepam), 1 TAB PO HS Multiple Vitamin (Multi-Vitamin), 1 TAB PO DAILY Polyethylene Glycol-Propylene (Systane Gel), 1 DROP OPR HS Simvastatin (Zocor), 5 MG PO HS Current Inpatient Medications Current Inpatient Medications Medications (Trade) Dose Ordered Sig/Sarthak Route Start Time Stop Time Status Last Admin Dose Admin Enoxaparin Sodium 40 mg 40 mg Q24H SC 08/04/16 09:00 09/03/16 08:59 08/04/16 08:37 40 MG Sodium Chloride (Nss 1000ml) 1,000 ml @ 75 mls/hr [id number] IV 08/04/16 06:00 09/03/16 05:59 08/04/16 06:00 75 MLS/HR Acetaminophen (Tylenol Tab) 650 mg Q4H PRN PO 08/04/16 04:30 09/03/16 04:29 08/04/16 06:35 650 MG Al Hydrox/Mg Hydrox/Simethicone (Maalox Max Susp) 15 ml Q4H PRN PO 08/04/16 04:30 09/03/16 04:29 Magnesium Hydroxide (Milk Of Magnesia Susp) 30 ml Q12H PRN PO 08/04/16 04:30 09/03/16 04:29 Ondansetron HCl (Zofran Inj) 4 mg Q6H PRN IV 08/04/16 04:30 09/03/16 04:29 Nitroglycerin (Nitrostat Tab) 0.4 mg UD PRN SL 08/04/16 04:30 09/03/16 04:29 Polyethylene (Miralax Powder Packet) 17 gm DAILY PRN PO 08/04/16 04:30 09/03/16 04:29 Glucose (Glucose 40% Gel) 15-30 GRAMS 15 GRAMS... UD PRN PO 08/04/16 04:30 09/03/16 04:29 Glucose (Glucose Chew Tab) 4-8 Tablets 4 Tabl... UD PRN PO 08/04/16 04:30 09/03/16 04:29 Dextrose (Dextrose 50% 50ML Syringe) 25-50ML OF 50% DW IV FOR... UD PRN IV 08/04/16 04:30 09/03/16 04:29 Glucagon (Glucagon Inj) 1 mg UD PRN SQ 08/04/16 04:30 09/03/16 04:29 Artificial Tears (Lacri-Lube Oph Oint) 1 appln HS OPR 08/04/16 21:00 09/03/16 20:59 Lisinopril (Zestril Tab) 1.25 mg QAM PO 08/04/16 09:00 09/03/16 08:59 Future Hold Lorazepam (Ativan Tab) 0.5 mg HS PO 08/04/16 21:00 09/03/16 20:59 Multivitamins (Multivitamin Tab) 1 tab DAILY PO 08/04/16 09:00 09/03/16 08:59 08/04/16 08:37 1 TAB Simvastatin 5 mg 5 mg HS PO 08/04/16 21:00 09/03/16 20:59 Levofloxacin 750 mg/Prmx 150 ml @ 100 mls/hr Q48H IV 08/06/16 04:00 08/10/16 10:00 Piperacillin Sod/ Tazobactam Sod/ Dextrose (Zosyn Iv/D5 100ml) 115 ml @ 28 mls/hr Q8H IV 08/04/16 08:00 08/11/16 07:59 08/04/16 16:05 28 MLS/HR Levalbuterol (Xopenex 1.25MG/ 3ML Neb) 1.25 mg Q6R INH 08/04/16 09:00 09/03/16 08:59 08/04/16 07:10 1.25 MG Vancomycin HCl (Consult) 1 ea UD PRN N/A 08/04/16 05:00 09/03/16 04:59 Piperacillin Sod/ Tazobactam Sod (Consult) 1 ea UD PRN N/A 08/04/16 05:00 09/03/16 04:59 Levofloxacin (Consult) 1 ea UD PRN N/A 08/04/16 05:00 09/03/16 04:59 Ipratropium [place] (Atrovent 0.02% 0.5MG/2.5ML Neb) 0.5 mg Q8R INH 08/04/16 08:00 09/03/16 07:59 08/04/16 07:10 0.5 MG Miscellaneous Information (Consult Glycemic Management Pharmacy) 1 ea UD PRN N/A 08/04/16 10:51 09/03/16 10:50 Insulin Aspart (novoLOG ASPART) SLIDING SCALE If C... Q6 SC 08/04/16 12:00 09/03/16 11:59 08/04/16 17:21 2 UNITS Insulin Human NPH 5 units 5 units BID@0600,1800 SQ 08/04/16 21:00 09/03/16 20:59 Vancomycin HCl 850 mg/Sodium Chloride 267 ml @ 125 mls/hr Q24H IV 08/05/16 05:00 08/12/16 04:59 Phenylephrine HCl/ Dextrose (Levy-Synephrine Inj/D5W 500ml) 502 ml @ 0 mls/hr Q0M PRN IV 08/04/16 14:45 09/03/16 14:44 08/04/16 16:07 168 MLS/HR Midazolam HCl (Versed Inj) 2 mg Q2H PRN IV 08/04/16 17:45 09/03/16 17:44 UNV Review of Systems A 10 point review of systems was negative unless stated above. Physical Exam Date Time Temp Pulse Resp B/P Pulse Ox O2 Delivery O2 Flow Rate FiO2 08/04/16 13:52 132 77/47 08/04/16 12:40 101 18 141/66 95 Mechanical Ventilator 100 08/04/16 12:38 103 18 152/69 95 Mechanical Ventilator 100 08/04/16 12:36 99 18 143/63 95 Mechanical Ventilator 100 08/04/16 12:34 89 18 151/60 94 Mechanical Ventilator 100 08/04/16 12:32 106 18 136/69 95 Mechanical Ventilator 100 08/04/16 12:30 110 18 134/69 95 Mechanical Ventilator 100 08/04/16 12:28 103 18 132/67 95 Mechanical Ventilator 100 08/04/16 12:26 102 18 124/64 95 Mechanical Ventilator 100 08/04/16 12:24 101 18 124/63 96 Mechanical Ventilator 100 08/04/16 12:22 101 18 121/61 96 Mechanical Ventilator 100 08/04/16 12:20 101 18 124/61 96 Mechanical Ventilator 100 08/04/16 12:18 100 18 129/67 96 Mechanical Ventilator 100 08/04/16 12:16 100 08/04/16 12:16 101 18 148/69 96 Mechanical Ventilator 100 08/04/16 12:12 176 18 144/88 96 Mechanical Ventilator 100 08/04/16 12:10 176 18 144/80 95 Mechanical Ventilator 100 08/04/16 12:07 173 18 141/79 91 Mechanical Ventilator 100 08/04/16 12:00 105 37 136/73 94 Mask 10.0 08/04/16 12:00 Mask 10.0 08/04/16 08:00 36.8 103 35 129/73 91 Mask 10.0 08/04/16 08:00 90 Mask 10.0 08/04/16 07:10 106 30 93 Diffusion Mask 10.0 08/04/16 05:12 36.4 108 26 108/58 92 08/04/16 05:11 108 26 108/58 92 Nasal Cannula 6.0 08/04/16 04:32 36.4 105 28 115/70 91 Nasal Cannula 6.0 08/04/16 04:03 112 26 116/69 88 Nasal Cannula 5.0 08/04/16 03:32 104 08/04/16 03:30 104 26 128/69 90 Nasal Cannula 5.0 08/04/16 03:11 90 Nasal Cannula 4.0 08/04/16 03:08 88 Nasal Cannula 3.0 08/04/16 02:53 90 Nasal Cannula 2.0 08/04/16 02:32 36.5 116 18 138/81 86 Room Air General Appearance: uncomfortable, mild distress, thin Eyes: PERRLA, EOMI ENT: normal ear exam, normal nasal exam, normal mouth exam, normal throat exam , other (no loose teeth or dentures) Neck: normal range of motion, trachea midline Respiratory: other (coarse breath sounds bilaterally; right side more prominent than left and presence of crackles on right side) Cardiovasular: regular rate/rhythm, normal S1S2, no murmur Abdomen: non tender, normal bowel sounds, no rebound, no guarding Back: normal inspection, no midline tenderness Upper Extremities: no edema Lower Extremities: no edema Edema: RUE (2+), LUE (2+) Pulses: carotid (R) (2+), carotid (L) (2+) Neuro: alert, oriented x 3, lethargic (fatigued) Psychiatric: normal affect Laboratory Results Last 24 Hours Test 08/04/16 03:15 08/04/16 03:19 08/04/16 06:28 08/04/16 08:46 White Blood Count 8.70 K/uL Red Blood Count 4.69 M/uL Hemoglobin 14.8 g/dL Hematocrit 42.3 % Mean Corpuscular Volume 90.2 fL Mean Corpuscular Hemoglobin 31.6 pg Mean Corpuscular Hemoglobin Concent 35.0 g/dl Platelet Count 252 K/uL Mean Platelet Volume 11.1 fL RDW Standard Deviation 46.1 fL RDW Coefficient of Variation 13.9 % Neutrophils % (Manual) 80.1 % Lymphocytes % (Manual) 11.3 % Monocytes % (Manual) 1.7 % Metamyelocytes % 5.2 % Myelocytes % 1.7 % Neutrophils # (Manual) 6.97 K/uL Total Absolute Neutrophils 6.97 K/uL Lymphocytes # (Manual) 0.98 K/uL Total Absolute Lymphocytes 0.98 K/uL Monocytes # (Manual) 0.15 K/uL Metamyelocytes # 0.45 K/uL Myelocytes # 0.15 K/uL Toxic Granulation 3+ Toxic Vacuolation 2+ Prothrombin Time 12.4 SECONDS Prothromb Time International Ratio 1.2 Activated Partial Thromboplast Time 30.7 SECONDS Partial Thromboplastin Ratio 1.2 Sodium Level 143 mmol/L 140 mmol/L Potassium Level 3.6 mmol/L 3.6 mmol/L Chloride Level 105 mmol/L 105 mmol/L Carbon Dioxide Level 23 mmol/L 20 mmol/L Anion Gap 15.0 mmol/L 15.0 mmol/L Blood Urea Nitrogen 45 mg/dl 49 mg/dl Creatinine 1.40 mg/dl 1.20 mg/dl Est Creatinine Clear Calc Drug Dose 32.6 ml/min 38.0 ml/min Estimated GFR () 43.7 52.7 Estimated GFR (Non- 37.7 45.4 BUN/Creatinine Ratio 32.0 40.8 Random Glucose 167 mg/dl 169 mg/dl Calcium Level 8.3 mg/dl 8.4 mg/dl Total Bilirubin 1.2 mg/dl 1.2 mg/dl Aspartate Amino Transf (AST/SGOT) 118 U/L 137 U/L Alanine Aminotransferase (ALT/SGPT) 68 U/L 71 U/L Alkaline Phosphatase 149 U/L 131 U/L Total Protein 6.8 gm/dl 6.6 gm/dl Albumin 2.2 gm/dl 1.9 gm/dl Globulin 4.6 gm/dl 4.7 gm/dl Albumin/Globulin Ratio 0.5 0.4 Bedside Lactic Acid Venous 6.34 mmol/L Bedside Glucose 135 mg/dl Estimated Average Glucose 186 mg/dl Hemoglobin A1c 8.1 % Lactic Acid Level 6.9 mmol/L Procalcitonin 23.77 ng/mL Test 08/04/16 11:42 08/04/16 14:00 08/04/16 14:14 08/04/16 14:15 Blood Gas Sample Site L Radial Art Line Bedside Blood Gas pH (LAB) 7.35 7.16 Bedside Blood Gas pCO2 (LAB) 33 mmHg 61 mmHg Bedside Blood Gas pO2 (LAB) 59 mmHg 82 mmHg Bedside Blood Gas HCO3 (LAB) 18 meq/L 22 meq/L Bedside Blood Gas Total CO2 19 mEq/l 23 mEq/l Bedside Blood Gas Base Excess (LAB) -8.0 meq/L -7.0 meq/L Bedside Blood Gas O2 Saturation 89.0 % 92.0 % Bennie Test Pass Pass Oxygen Delivery Device SimpleMask Ventilator Lactic Acid Level 7.4 mmol/L Phosphorus Level 3.1 mg/dl Magnesium Level 1.9 mg/dl Thyroid Stimulating Hormone (TSH) 4.450 uIu/ml Free Thyroxine 1.04 ng/dl Random Cortisol 130.69 mcg/dl Hepatitis B Surface Antigen NEG Hepatitis C Antibody NEG Bedside Oxygen Rate (breaths/min) 18 Blood Gas Minute Ventilation 8.9 Bedside FiO2 100 % Blood Gas Tidal Volume 450 Blood Gas PEEP 6 Urine Color DK YELLOW Urine Appearance CLOUDY Urine pH 5.0 Urine Specific [place] 1.027 Urine Protein 1+ Urine Glucose (UA) TRACE Urine Ketones NEG Urine Occult Blood NEG Urine Nitrite NEG Urine Bilirubin NEG Urine Urobilinogen NEG Urine Leukocyte Esterase NEG Urine WBC (Auto) 1-5 /hpf Urine RBC (Auto) 0-4 /hpf Urine Hyaline Casts (Auto) 5-10 /lpf Urine Epithelial Cells (Auto) >30 /lpf Urine Bacteria (Auto) NEG Urine Renal Epithelial Cells /lpf Urine Pathogenic Casts 5-10 GRANULAR CASTS /lpf Test 08/04/16 15:52 08/04/16 16:30 08/04/16 16:36 Lactic Acid Level 7.3 mmol/L Total Creatine Kinase 27 U/L Creatine Kinase MB < 0.5 ng/ml Creatine Kinase MB Ratio Troponin I 0.041 ng/ml Bedside Glucose (other) 232 mg/dl Diagnostic Results CT OF THE CHEST WITHOUT IV CONTRAST CLINICAL HISTORY: Chest wall pain, weakness, flulike symptoms, abnormal chest x-ray. COMPARISON STUDY: Chest x-ray dated 08/04/2016 CT DOSE: 199.81 mGy.cm TECHNIQUE: CT of the thorax was performed from the thoracic inlet to the lung bases. Images are reviewed in the axial, sagittal, and coronal planes. IV contrast was not administered for this examination. FINDINGS: Thyroid: Imaged portions of the thyroid gland are normal in appearance. Thoracic aorta: The thoracic aorta is normal in course and caliber, noting standard 3 vessel arch anatomy. Heart: There are coronary artery calcifications present. Lungs and pleural spaces: There is a small right pleural effusion. There is an azygos fissure. There is extensive masslike consolidation of the right lower lobe with obstruction of right lower lobe bronchus. Airspace opacities are also present within the right middle lobe, and left lower lobe. Mediastinum: Precarinal lymph nodes are the upper limits of normal in size Dominique: Hilar structures are difficult to evaluate due to the lack of intravenous contrast and the dense parenchymal consolidation Axilla: Clear. Upper abdomen: Partially visualized upper abdominal viscera is within normal limits. Skeletal structures: The bones are osteopenic. There are multiple thoracic compression deformities which are likely old. IMPRESSION: 1. Dense consolidation of the right lower lobe with obstruction of right lower lobe bronchus. Airspace opacities within the right middle lobe and left lower lobe. The findings are consistent with a multilobar pneumonia. An underlying obstructing mass cannot be excluded and close follow-up will be necessary. Small right pleural effusion TWO VIEW CHEST CLINICAL HISTORY: Cough. FINDINGS: PA and lateral chest radiographs are compared to study dated 02/20/2015. The cardiomediastinal silhouette is unremarkable. There is atherosclerotic calcification of the thoracic aorta. Accessory azygous fissure is incidentally noted. Emphysema and chronic interstitial thickening are identified. There is dense patchy consolidation throughout the right mid to lower lung with a right pleural effusion. Consolidative changes also seen at the medial left lung base. There is no pneumothorax. The skeletal structures are osteopenic. A mild compression deformity is noted in the lower thoracic spine. IMPRESSION: 1. There is patchy airspace consolidation throughout the right mid to lower lung with a right pleural effusion. Consolidative change is also seen at the medial left lung base. The appearance suggests multifocal pneumonia. Radiographic follow-up to resolution is recommended. 2. Suspect emphysema. Assessment & Plan 71 year old female presents with acute shortness of breath, admitted to the ICU service for the following problems: - Acute Hypoxemic Respiratory Failure - Sepsis with Septic Shock - Right Lobar Pneumonia - Abnormal CXR, suspicious for possible mass - Suspected Emphysema on CXR - Grave's Disease On arrival patient was hypoxic despite 10 L by facemask. Decision was made to intubate patient and secure adequate airway. After review of radiographs with cardiothoracic surgery and radiology, there was concern a possible underlying mass in the right lung, causing obstruction with secondary atelectasis/ consolidation. Review of labs and vitals were consistent with sepsis and goal- directed therapy was initiated in the ICU As noted below, we did require central access and invasive BP monitoring due to hypotension. See separate procedure notes. NEUROLOGICAL - GCS: 15 on arrival to ICU - Sedation: No sedation on arrival Start intermitted Versed 2 mg q 2 hours PRN; Goal RASS until AM assessmen -1 to 0 CARDIAC - BP: 108/58 MAP: > 65 - Vasopressor support: Patient did develop SVT during OG tube placement and after central venous catheter placement, causing secondary hypotension Started on Phenylephrine infusion 2 mcg/kg/min; titrate to MAP > 65 - IV Fluids: Goal-Directed fluid management instituted; 2 L Lactate Ringers ordered Continue maintenance with NSS @ 75 ml/hr Supraventricular Tacchycardia - Patient had 2 episodes of SVT rate 170s; breathing does did not alter rate , likely SVT rather than Afib - First episode post-OG tube placement: given 6 mg Adenosine with spontaneous conversion to NSR - Second episode following central line placement; accompanied by hypotension ; given additional 6 mg Adenosine with resolution by subsequent transition to Afib Progressed to hypotension, MAP < 65; electrical cardioversion 200 J with conversion back to spontaneous rhythm - Consider anti-arrhythmic with Amiodarone: check thyroid stimulating hormone as baseline due to thyrotoxic side-effects Hypotension - Secondary to septic shock plus SVT/Afib - Phenylephrine infusion as above - IV fluid bolus followed by maintenance - Central Venous Catheter and Arterial Line placed at bedside; see separate procedure note RESPIRATORY - RR: 30 with facemask SpO2: 93% on Facemask Acute Hypoxic Respiratory Distress - Patient intubated successfully at bedside - Ventilator settings: Volume AC/ RR 28 / Vt 450 / PEEP 6 / FiO2 100% - ABG with AM labs Right Lobar PNA - Continue Vancomycin, Levaquin and Cefepime (See ID below) Concern for Lung Neoplasm - Cardiothoracic surgery has been consulted - Bronchoscopy performed at bedside; see separate report - Discussed with radiology the need for possible needle biopsy of area; will re- assess in the AM GASTROINTESTINAL - Diet: NPO, OG tube placed - GI Prophylaxis: Protonix 40 IV daily to be started today - Bowel regimen: None at this time; continue to follow for bowel movements Shock Liver/Transaminitis - Mild elevation, stable currently - Repeat LFTs with AM labs RENAL//ENDOCRINE - Fluid Balance; no adequate data to measure at this time Goal Urine Output > 0.5 ml/kg/hr - Cr:1.2 (1.4 on admission) - Electrolytes: Normal Na, K, Mg, Phos - IV Fluids: NaCl @ 75 ml/hr Acute Kidney Injury - Cr 1.4 on admission today; but improved to 1.2 with repeat labs this morning Type 1 Diabetes Mellitus, uncontrolled - Continue Novolin - Sliding scale coverage - HbA1c 8.1 Grave's Disease - TSH 4.4; fT4 1.04; TSI pending HEME/INFECTIOUS DISEASE - Tmax: 36.8 WBC: 8 - Hb/Hct 14/42 respectively Sepsis/Septic Shock secondary to Right Lobar Pneumonia - Antibiotics: Vancomycin, Cefepime, Levaquin Day 1Day 1 - Lactate on arrival to unit 6.9; increased to 7.4 after 2 hours; will trend 2 additional lactate values q 2 hours to follow DVT Prophylaxis: Heparin 5000 s.c TID LINES/IV ACCESS - Right IJ triple lumen catheter - Right antecubital CODE STATUS - Full Code - Designates to be substitute decision-maker if she cannot make decisions herself DISPOSITION - OT/PT: Will benefit from OT/PT evaluation when acute illness is resolved - Patient comes from home where she lives independently Resident Physician Supervision Note: Dr. Ortiz was resident physician during care of patient. I separately evaluated patient and did history and exam. I discussed the case with the resident and generally agree with the findings and plan. Gram positive septic shock from pneumonia, approaching multi-system organ failure. Still administering volume, and hope to wean vasoactives. Possible mass underlying pneumonia, possible obstructive process. I have personally spent 90 minutes of critical care time in the direct management of this patient. This is a life/limb threatening event. This includes time spent evaluating patient, direct bedside care, chart review, placing orders, interpretation of diagnostic studies, discussion with consultants, patient, and family members, as well as other required patient management activities. This time is exclusive of all separately billable procedures, and teaching time and separate from and in addition to any other critical care service time. Documented By: Juan Joshi, DO
--- NOTE | 2016-08-04 19:27 | OPERATIVE REPORT ---
DATE OF OPERATION: 08/04/2016 PROCEDURE: Therapeutic/diagnostic bronchoscopy. SURGEON: Mitch Jimenez MD SHANK TAPPER: [place], respiratory therapy. ANESTHESIA: Sedation with local. SPECIFICS OF PROCEDURE: The patient is struggling with a right lower lobe process and had to be intubated today. She is quite ill with gram positive cocci in her blood and she is acidotic. I have discussed this case with Dr. Joshi and I have discussed this case with the patient's . I am quite concerned about this patient. She is quite ill. After she was intubated, I went ahead and did a bronchoscopy to make sure we did not have something else going on in her right lung. It appears to be a cut off of the right lower lobe bronchus. On the afternoon of 08/04/2016, I did a therapeutic and diagnostic bronchoscopy and quite frankly she just had some purulent sputum in both lower lobes, worse in the right than the left. I suctioned these dry quite easily. It was purulent and I immediately sent it off for a Gram stain and culture. She tolerated it well. I did some biopsies of the right lower lobe bronchus as well as brushes and some washings. DESCRIPTION OF THE PROCEDURE: The patient was sedated. She is already on the ventilator on propofol. After placing a fiberoptic bronchoscope I injected Xylocaine and then I went down. She had purulent sputum noted, particularly in the right lower lobe, I suctioned this out and sent this for culture. I then lavaged this and it quite quickly cleared. I was a bit surprised at that because it was so tenacious. At any rate I saw no endobronchial lesions and although her right lower lobe was a bit inflamed I did do some brushings of the superior segment as well as the right lower lobe in general. I saw no endobronchial lesions, although there was some narrowing of the superior segment of the lower lobe on the right. She also had some purulent sputum on the left, although it was much less and cleared quickly with just suctioning. I irrigated out both lower lobes quite a bit and I got very little in the way of sputum after she cleared. I slowly withdrew the bronchoscope. She tolerated it well. I attest to the content of the Intraoperative Record and any orders documented therein. Any exceptio ns are noted below.
[2016-08-04] MEDS: IPRATROPIUM BROMIDE HFA INHALER INH SCH (19:47)
[2016-08-04] MEDS: LEValbuterol HFA 15GM INHALER INH SCH (19:47)
--- NOTE | 2016-08-04 19:47 | SURGICAL CONSULTATION ---
DATE OF CONSULTATION: 08/04/2016 I was asked to see Ms. Paige today for evaluation of possible right pleural effusion. The patient does have opacification of her right lower lobe; however, she has very little in the way of fluid. I am concerned about her. I did an ultrasound of her right chest and saw very little fluid. The patient became ill about 4 months ago. She states that she started getting sick about [place] and she was treated with couple courses of antibiotics. She had some chest pain on the right that is pleuritic in nature. She had fevers, chills. She had some diarrhea after taking antibiotics. She became much more short of breath and had dyspnea and so she finally presented to the hospital. She does not look good to me now. She is on 100% O2 and is struggling to keep her sat at 90%. My feeling is she is probably going to end up on a ventilator before long. She has never smoked cigarettes. PAST MEDICAL HISTORY: 1. Dyslipidemia. 2. Osteoporosis. 3. Diabetes mellitus. PAST SURGICAL HISTORY: 1. 0, para 0, abortus 0. 2. ORIF hip. MEDICATIONS: 1. Fosamax. 2. Humulin N. 3. Humulin R. 4. Lisinopril. 5. Lorazepam. 6. Simvastatin. ALLERGIES: 1. ADHESIVES. 2. SULFA. SOCIAL HISTORY: The patient lives with her of many years. She has 2 adopted children who are adults. She has never smoked cigarettes. Does not use alcohol. 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 REVIEW OF SYSTEMS: The patient complains of increasing dyspnea with shortness of breath even at rest. She has had fevers, chills, fatigue. She feels very weak. She has dyspnea even at rest. She has had a productive cough with yellow purulent sputum. She has lost several pounds. She complains of pleuritic type chest pain. She has had some diarrhea, some nausea and vomiting. Her urine output has gone down over the last few days but she does not have any dysuria or pyuria. She had no skin breakdown. She had no visual or auditory symptoms. PHYSICAL EXAMINATION: GENERAL: This is a very slight patient who stands 5 feet 6 inches tall and weighs 123 pounds. HEENT: Her extraocular movements are intact but pale. She is on 100%. She has teeth in good repair. She has no nasolabial flattening, but her oral mucosa is quite dry. NECK: Inspected. I detect no carotid bruits, supraclavicular or cervical lymphadenopathy, thyromegaly, or neck vein distention. LUNGS: She has decreased breath sounds in both bases, worse on the right than the left. HEART: She has a regular rate and rhythm of her heart. ABDOMEN: Flat, soft, nontender. EXTREMITIES: She has good femoral pulses, good pedal pulses. No joint effusions, no peripheral edema. She has no focal deficits, but she is quite weak. DATA: I reviewed her CT scan and really she appears to have an infiltrative process encompassing her entire right lower lobe. I do not see much in the way of adenopathy. In addition, she has gram-positive cocci growing in her blood. Her white count is only 8300 and she is afebrile. Her lactic acid is high, 6.34. She also appears to be a bit dry as her sodium was 143 and her BUN and creatinine were 49 and 1.2. ASSESSMENT AND PLAN: Infiltrative process right lower lobe. This could very well be pneumonia or could be also first sign of some type of malignancy. I saw very little in the way of fluid in her right chest. Quite concerned about her, I think she needs a bronchoscopy. I have discussed this case with Dr. Juan Joshi several times today. Thank you very much.
[2016-08-04 19:54] LABS: ISTAT ARTERIAL BLOOD GAS HCO3 25 meq/L (19-24); ISTAT ARTERIAL BLOOD GAS PCO2 42 mmHg (35-46); ISTAT ARTERIAL BLOOD GAS PO2 74 mmHg (80-95); ISTAT ARTERIAL BLOOD GAS pH 7.39 (7.35-7.45); ISTAT CARBON DIOXIDE 26 mEq/l (24-31); ISTAT DELIVERY SYSTEM Ventilator; ISTAT FIO2 100 %; ISTAT PEEP 6; ISTAT RATE 28; ISTAT SITE Art Line; VE 14.3; Vt 500
[2016-08-04] MEDS: LINEZOLID / D5W 600 MG in PREMIXED IN D5W 300 ML IV SCH (21:42)
[2016-08-04] MEDS: SIMVASTATIN 5 MG TAB PO SCH (21:43)
[2016-08-04] MEDS: HEPARIN SOD 5000 UNIT/0.5 ML CARP SQ SCH (21:46)
[2016-08-04] MEDS: INSULIN HUMAN NPH SQ SCH (21:46)
[2016-08-04] MEDS: LORAZEPAM 0.5 MG TAB PO SCH (22:00)
[2016-08-04] MEDS: ARTIFICIAL TEARS OP OINT 3.5 GM TUBE OPR SCH (22:02)
--- NOTE | 2016-08-04 22:25 | Progress Note ---
Progress Note Date of Service Aug 04, 2016. Progress Note Patient admitted earlier this am with right lower lung dense infiltrate. She is being treated for pneumonia, but there are concerns that a mass may be the obstructing process. bronchoscopy done today by Dr. Jimenez. She is intubated and sedated. 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 [facility].
--- NOTE | 2016-08-04 22:39 | Procedure Note ---
Procedure Note Date of Service Aug 04, 2016. Procedure Note Procedure Date: 08/04/2016 Procedure: Endotracheal intubation Pre-procedure Diagnosis: acute hypoxic respiratory failure Post-procedure Diagnosis: same as above Prior to Procedure: Informed Consent: emergent Attending Staff: Mario Joshi DO Indications: Acute Hypoxic respiratory failure due to pneumonia The identity of the patient was confirmed and a bedside time out was performed. Description of Procedure: Patient was evaluated and required intubation for respiratory failure. The patient was prepared in the usual fashion. A Mack 2 laryngoscope was used. A 8-0 Fr endotrachial tube was placed endotracheally to 25 cm at the teeth. A grade 1 view was obtained. The endotracheal tube was noted to pass through the vocal cords. Chest rise was bilateral. Bilateral breath sounds were heard without air sounds in the abdomen. Mist was noted in the endotracheal tube. End -tidal CO2 measurement was positive. Chest x-ray shows proper endotracheal tube placement. Complications: none Findings: not applicable Specimens: not applicable Estimated blood loss: Zero Procedure Date: 08/04/16 Procedure: Right radial Arterial line Pre-procedure Diagnosis: hypotension, acute respiratory failure Post-procedure Diagnosis: same as above Prior to Procedure: Informed Consent: risks and benefits where discussed with the family and patient Attending Staff: Mario Joshi DO The identity of the patient was confirmed and a bedside time out was performed. Description of Procedure: The patient's right wrist was prepped with chlorhexidine and draped in a sterile fashion. 1 ml of 1% lidocaine without epinephrine was used to anesthetize the area. Dynamic Ultrasound guidance was used. a 20 gauge catheter was placed by a modified seldinger technique. Complications: none Findings: not applicable Specimens: not applicable Estimated blood loss: trace Procedure Date: 08/04/16 Procedure: Emergent Cardioversion Pre-procedure Diagnosis: Atrial fibrillation with rapid ventricular response, hypotension Post-procedure Diagnosis: Normal sinus rhythm Prior to Procedure: Informed Consent: emergent Attending Staff: Mario Joshi DO Indications: Septic shock, new onset atrial fibrillation with rapid ventricular response The identity of the patient was confirmed and a bedside time out was performed. Anesthesia: 2mg versed 100 mcg fentanyl Description of Procedure: Patient underwent an emergent synchronized cardioversion at 2oo joules. Complications: None Findings: not applicable Conversion to normal sinus rhythm Specimens: not applicable Estimated blood loss: Zero
[2016-08-04] MEDS: MIDAZOLAM HCL 1 MG/ML 2ML VIAL IV PRN (22:55)
[2016-08-04] MEDS: PHENYLEPHRINE HCL INJ 40 MG in DEXTROSE 5% 500ML 500 ML IV PRN (23:27)
[2016-08-05] VITALS (25 sets, daily range): BP systolic 64–147; BP diastolic 35–79; PULSE 89–113; TEMP 37.1–37.8; O2SAT 84–100; Ht 165.1 cm; Wt 72.0 kg
[2016-08-05] MEDS ORDERED: FENTANYL CITRATE INJ 50 MCG/1 ML 2 ML VIAL ONE (00:07)
[2016-08-05] MEDS ORDERED: FENTANYL CITRATE INJ 50 MCG/1 ML 2 ML VIAL IV STA (00:11)
[2016-08-05] MEDS: PIPERACILL/TAZOBAC IV 3.375 GM in DEXTROSE 5% 100ML 100 ML IV SCH ×3 (00:15→16:01)
[2016-08-05] MEDS: INSULIN ASPART 100 UNITS/ML 3 ML PEN SC SCH ×5 (00:39→21:49)
[2016-08-05 00:41] LABS: ISTAT ARTERIAL BLOOD GAS HCO3 24 meq/L (19-24); ISTAT ARTERIAL BLOOD GAS PCO2 44 mmHg (35-46); ISTAT ARTERIAL BLOOD GAS PO2 66 mmHg (80-95); ISTAT ARTERIAL BLOOD GAS pH 7.34 (7.35-7.45); ISTAT CARBON DIOXIDE 25 mEq/l (24-31); ISTAT DELIVERY SYSTEM Ventilator; ISTAT FIO2 100 %; ISTAT PEEP 6; ISTAT RATE 28; ISTAT SITE Art Line; VE 12.4; Vt 500
[2016-08-05] MEDS ORDERED: INSULIN REGULAR 4 UNITS in SYRINGE 3.96 ML IV STA (01:54)
[2016-08-05 01:55] LABS: ALB/GLOB RATIO 0.4 (0.9-2); BUN/CREATININE RATIO 30.5 (10-20); CKMB/CK RATIO 3.3 (0-3.0); CREATININE 1.2 mg/dl (0.60-1.20); MAGNESIUM 2.7 mg/dl (1.8-2.4)
[2016-08-05] MEDS: IPRATROPIUM BROMIDE HFA INHALER INH SCH ×4 (01:55→20:35)
[2016-08-05] MEDS: LEValbuterol HFA 15GM INHALER INH SCH ×4 (01:55→20:35)
[2016-08-05 02:17] LABS: PHOSPHORUS 1.8 mg/dl (2.5-4.9); POTASSIUM 4.2 mmol/L (3.5-5.1)
[2016-08-05] MEDS ORDERED: INSULIN ASPART 100 UNITS/ML 3 ML PEN SC SCH (04:00)
[2016-08-05] MEDS: MIDAZOLAM HCL 1 MG/ML 2ML VIAL IV PRN ×2 (04:25→06:24)
[2016-08-05] MEDS: SODIUM CHLORIDE 0.9% 1000ML 1,000 ML IV SCH ×2 (04:25→09:00)
[2016-08-05] MEDS ORDERED: VANCOMYCIN INJ 700 MG in SODIUM CHLORIDE 0.9% 250ML 250 ML IV SCH (05:00)
[2016-08-05] MEDS ORDERED: VANCOMYCIN INJ 850 MG in SODIUM CHLORIDE 0.9% 250ML 250 ML IV SCH (05:00)
[2016-08-05] MEDS: PHENYLEPHRINE HCL INJ 40 MG in DEXTROSE 5% 500ML 500 ML IV PRN (05:41)
[2016-08-05 05:46] LABS: BUN/CREATININE RATIO 33.9 (10-20); CREATININE 1.1 mg/dl (0.60-1.20); MAGNESIUM 2.6 mg/dl (1.8-2.4); POTASSIUM 4.1 mmol/L (3.5-5.1)
[2016-08-05 05:48] LABS: COMPLETE YES; ECHINOCYTES 2+; HEMATOCRIT 37.6 % (37-47); LYMPH ABS # 1.79 K/uL (1.2-3.4); LYMPHOCYTE % 8.7 %; MEAN CELL VOLUME 90.6 fL (80-100); MEAN CORPUSCULAR HEMOGLOBIN 31.3 pg (25-34); MEAN CORPUSCULAR HGB CONC 34.6 g/dl (32-36); MEAN PLATELET VOLUME 11.5 fL (7.4-10.4); META ABS # 1.07 K/uL (0-0); METAMYELOCYTE % 5.2 %; NEUTROPHILS % 84.4 %; PLATELET COUNT 206 K/uL (130-400); PLT ESTIMATE NORMAL; RED BLOOD COUNT 4.15 M/uL (4.2-5.4); TOXIC GRANULATION 1+; WHITE BLOOD COUNT 20.59 K/uL (4.8-10.8)
[2016-08-05 05:49] LABS: ALB/GLOB RATIO 0.4 (0.9-2); PHOSPHORUS 1.8 mg/dl (2.5-4.9)
[2016-08-05] MEDS ORDERED: SODIUM PHOSPHATE 3 MMOL/1 ML INFUSION IV STA (05:59)
[2016-08-05] MEDS ORDERED: SODIUM PHOSPHATE INJ 21 MMOL in SODIUM CHLORIDE 0.9% 500ML 500 ML IV SCH (06:15)
[2016-08-05] MEDS: INSULIN HUMAN NPH SQ SCH (06:25)
[2016-08-05] MEDS: HEPARIN SOD 5000 UNIT/0.5 ML CARP SQ SCH ×3 (06:26→21:49)
[2016-08-05 06:40] LABS: LARGE PLATELETS 1+
--- NOTE | 2016-08-05 07:09 | DIAGNOSTIC IMAGING REPORT ---
CHEST ONE VIEW PORTABLE CLINICAL HISTORY: Respiratory failure COMPARISON STUDY: 08/04/2016 FINDINGS: There is an endotracheal tube 23 mm above the giorgio. There is a nasogastric tube within the stomach. There is a right internal jugular central venous catheter which projects over the superior vena cava. There is a persistent right pleural effusion. There are worsening left basilar airspace opacities. There is extensive right middle and lower lung zone consolidation, with slight improved aeration medially..[ IMPRESSION: 1. Persistent dense consolidation of the right mid and lower lung zone, with slight improved aeration medially. 2. Worsening left basilar pulmonary consolidation 3. Right pleural effusion Electronically signed by: Oz Waters M.D. 08/05/2016 7:07 AM Dictated Date/Time: 08/05/2016 7:05 AM
[2016-08-05 07:53] LABS: ISTAT ARTERIAL BLOOD GAS HCO3 21 meq/L (19-24); ISTAT ARTERIAL BLOOD GAS PCO2 41 mmHg (35-46); ISTAT ARTERIAL BLOOD GAS PO2 61 mmHg (80-95); ISTAT ARTERIAL BLOOD GAS pH 7.33 (7.35-7.45); ISTAT CARBON DIOXIDE 23 mEq/l (24-31); ISTAT DELIVERY SYSTEM Ventilator; ISTAT FIO2 100 %; ISTAT PEEP 6; ISTAT RATE 28; ISTAT SITE Art Line; VE 16.5; Vt 500
[2016-08-05] MEDS ORDERED: FENTANYL CITRATE INJ 50 MCG/1 ML 2 ML VIAL IV PRN ×2 (08:30→18:15)
[2016-08-05] MEDS: MULTIVITAMIN TAB PO SCH (08:53)
[2016-08-05 09:23] LABS: CKMB/CK RATIO 3.2 (0-3.0)
[2016-08-05] MEDS ORDERED: POTASSIUM PHOSPHATE INJ 9 MMOL in SODIUM CHLORIDE 0.9% 250ML 250 ML IV ONE (09:45)
[2016-08-05] MEDS ORDERED: PHENYLEPHRINE HCL INJ 80 MG in DEXTROSE 5% 500ML 500 ML IV PRN (09:45)
[2016-08-05] MEDS ORDERED: MIDAZOLAM 125MG/250ML D5W 250 ML IV PRN (09:46)
[2016-08-05] MEDS ORDERED: CISATRACURIUM IV BOLUS & DRIP IV STA (09:46)
[2016-08-05] MEDS ORDERED: CISATRACURIUM BESYLATE IV ONE (10:00)
[2016-08-05] MEDS ORDERED: DC ALL PREVIOUSLY ORDERED DIABETES MEDS ONE (11:00)
[2016-08-05] MEDS ORDERED: MODERATE STRESS LEVEL ONE (11:00)
[2016-08-05] MEDS ORDERED: INSULIN PROTOCOL GOAL RANGE ONE (11:00)
[2016-08-05] MEDS ORDERED: INSULIN IV INFUSION PROTOCOL ONE (11:00)
[2016-08-05] MEDS: CISATRACURIUM BESYLATE INJ 40 MG in SODIUM CHLORIDE 0.9% 100ML 80 ML IV PRN ×2 (11:22→20:15)
[2016-08-05] MEDS: INSULIN REGULAR 250 UNITS in SODIUM CHLORIDE 0.9% 250ML 250 ML IV SCH (11:24)
[2016-08-05] MEDS: SODIUM CHLORIDE 0.9% IV SCH (11:25)
[2016-08-05] MEDS: THIAMINE HCL IV SCH (11:25)
[2016-08-05] MEDS: PANTOprazole INJ 40 MG in SYRINGE 0 ML IV SCH (11:27)
[2016-08-05] MEDS: LINEZOLID / D5W 600 MG in PREMIXED IN D5W 300 ML IV SCH ×2 (11:27→21:44)
[2016-08-05] MEDS ORDERED: INSULIN HUMAN REGULAR IV BOLUS 1.5 UNIT in SYRINGE 0 ML IV SCH (11:30)
--- NOTE | 2016-08-05 11:45 | SURGERY PROGRESS NOTE ---
DATE: 08/05/2016 DATE: 08/05/2016. Ms. Paige was seen today. She is very ill. I discussed this case with Dr. Juan Joshi as well as the patient's . Yesterday's bronchoscopy just revealed purulent fluid. I did not see evidence of any malignancy, although I did take some biopsies as well as brushings. These are still pending in pathology. The patient remains on vasopressors, was on 100% FiO2 overnight and is down to 80% with saturations in the low to mid 90s. Her airway pressures are really not that high. Her peak inspiratory pressure was 33 with a PEEP of 10. I thought her x-ray showed a little bit better aeration on the right, although I am a bit concerned about the left. This patient is quite ill and is growing gram positives in her blood. She is very ill from this and I explained this in detail to the patient's . My hope is that she will turn around. Her kidneys are holding up and she is making adequate urine.
--- NOTE | 2016-08-05 11:58 | Pharmacy Progress Note ---
Glycemic Control: Progress Nt Date of Service Aug 05, 2016. Scope Glycemic Pharmacist consulted by Dr Huang on 08/04/16 for glycemic control and to write orders per [facility] inpatient glycemic control protocol. Objective Accuchecks BSG (last 24hrs): Test 08/05/16 00:35 08/05/16 04:57 Random Glucose 293 mg/dl (70-99) 229 mg/dl (70-99) Laboratory Data (last 24hrs) Test 08/05/16 00:35 08/05/16 04:57 Anion Gap 15.0 mmol/L 12.0 mmol/L BUN/Creatinine Ratio 30.5 33.9 Blood Urea Nitrogen 37 mg/dl 37 mg/dl Creatinine 1.20 mg/dl 1.10 mg/dl Potassium Level 4.2 mmol/L 4.1 mmol/L Sodium Level 139 mmol/L 139 mmol/L White Blood Count 20.59 K/uL Red Blood Count 4.15 M/uL Hemoglobin 13.0 g/dL Hematocrit 37.6 % Mean Corpuscular Volume 90.6 fL Mean Corpuscular Hemoglobin 31.3 pg Mean Corpuscular Hemoglobin Concent 34.6 g/dl Platelet Count 206 K/uL Mean Platelet Volume 11.5 fL HbA1c: Test 08/04/16 08:46 Hemoglobin A1c 8.1 % (4.5-5.6) H Recent Pertinent Medications Outpatient Anti-diabetic Regimen: * NPH per scale - reported to be 8 units BID in [facility] records * Humulin R per scale in AM - reported to be 4 units in AM in [employer] records * A1c = 8.1 % 08/04/16 The patient is currently receiving: * Basal insulin: NPH 5 units every 12 hours * Correctional Insulin: Novolog Correction per scale Q 6 hours Goal Range: Low 130 mg/dL - High 170 mg/dL Correction Factor: 40 mg/dL/unit * Prandial insulin: Per carb ratio of 1 unit per 14 grams CHO consumed Risk Factors for Insulin Resistance: * Infection: acute resp failure, PNX, strep pn bacteremia; receiving Zyvox, Zosyn and Levofloxacin IV * Pressors: phenylephrine @1mcg/kg/min * IVF: multiple abx and IV drips mixed in D5W * Diet: NPO * Mechanical Ventilation: yes Assessment & Plan ASSESSMENT: 08/05/16 * patient remains mechanically ventilated - remains on significant dose of pressor support - lactate remains elevated * there is concern for developing ARDS - pt will begin neuromuscular blockade today * multiple IV medication adjustments made today - will likely receive a significant IVF and dextrose load over the next 24 hrs * she has a h/o T1DM and given current stressors and questionable efficacy of SQ absorption, standard of care would be an IV insulin infusion - the current IV dextrose load should be sufficient to allow for IV insulin administration to prevent hypoglycemia with IV insulin administration as it will be necessary to avoid ketoacidosis. I suspect she will require very low infusion rates, 1 unit per hour or less given out-pt insulin doses. PLAN FOR INPATIENT GLYCEMIC CONTROL: * Starting IV insulin infusion per moderate stress protocol * Goal Range 140 - 180 mg/dl * In the critical care setting, continuous IV insulin infusion has been shown to be the best method for achieving glycemic targets. * Please note that the plan above was derived based on current level of insulin resistance and hospital stress. These recommendations are appropriate for inpatient admission only. Plan of care upon discharge will need to be reassessed to avoid potential outpatient hypo/hyperglycemia. Thank you.
[2016-08-05] MEDS: FENTANYL CITRATE INJ 50 MCG/1 ML 2 ML VIAL IV SCH ×3 (12:00→17:26)
--- NOTE | 2016-08-05 12:04 | Critical Care Progress Note ---
Critical Care Progress Note Date of Service Aug 05, 2016. ICU Day ICU Day Number: [address] Joshi Subjective Patient is sedated, but does awaken to voice Denies any pain or discomfort Can follow simple commands at the bedside No issues per nursing overnight Objective Constitutional: Vital signs as above were reviewed. Eyes: Pupils equal, round, and reactive to light. Extraocular muscles are intact. No proptosis. No photophobia. ENT: Mucous membranes are moist. Oropharynx is clear. No sinus tenderness. TMs are clear bilaterally. Cardiovascular: Heart with a regular rate and rhythm. Pulses are palpable and symmetric in all 4 extremities. No pedal edema appreciated. Respiratory: On mechanical ventilator. No accessory muscle use. No retractions. No increased work of breathing. Coarse breath sounds bilaterally, prominent crackles at the base of right lung field GI: Abdomen soft, nontender, nondistended. Normal active bowel sounds. No abdominal hernias appreciated. No rebound. No guarding. : No CVA tenderness appreciated. Musculoskeletal/extremities: No midline cervical or vertebral tenderness. No gross deformities. No bony tenderness. No calf swelling or tenderness. Edema bilaterally the hands Integumentary: Warm, dry, no rashes appreciated. Neurological: Patient rousable to vocal command, follows simple commands at the bedside such as giving thumbs up, wiggling toes, raising hand RASS score -1 Lymph: No cervical lymphadenopathy appreciated. Assessment & Plan 71 year old female presents with acute shortness of breath, admitted to the ICU service for the following problems: - Acute Hypoxemic Respiratory Failure - Severe ARDS - Sepsis with Septic Shock - Right Lobar Pneumonia - Abnormal CXR, suspicious for possible mass - Suspected Emphysema on CXR - History of supraventricular tachycardia - History of atrial fibrillation with RVR - Grave's Disease - Protein calorie malnutrition and hypoalbuminemia NEUROLOGICAL - RASS score -1 - Sedation: - Discontinue intermitted Versed; start infusion; Goal BIS score < 60 - Continue Lorazepam 0.5 mg at night - Start fentanyl 100 g every 4 hours, when necessary for pain/agitation - We'll start systemic rocuronium infusion for 24 hours, for management of severe ARDS Goal train of 4s, 2 out of 4 CARDIAC - BP: 110 to 1:30 systolic MAP: > 65 Some discrepancy noted between NIBP and arterial line monitor - Vasopressor support: Continue phenylephrine infusion at 1 mcg/kg/min - IV Fluids: Goal-Directed fluid management instituted; 3 L Lactate Ringers ordered yesterday; has been getting maintenance with NSS @ 75 ml/hr Supraventricular Tacchycardia and atrial fibrillation with RVR - No episodes overnight; did respond to combination of adenosine and electrical synchronized cardioversion - Repeat ABG shows that acid-base status, though not normalized, has improved remarkably, reducing the patient's risk of developing subsequent arrhythmias - Consider anti-arrhythmic with Amiodarone: check thyroid stimulating hormone as baseline due to thyrotoxic side-effects Hypotension - Secondary to septic shock plus SVT/Afib - Continue phenylephrine infusion as above; risk of arrhythmias decreased, as acidosis is improving; therefore patient may tolerate Levofed if needed - Patient has been adequately fluid resuscitated at this point so we will stop maintenance fluids now RESPIRATORY - RR: 33-37 SpO2: 93-100%, on 100% FiO2 - Current ventilator settings: Volume AC/tidal volume 500 mL/respiratory rate 28 /PEEP 6/FiO2 100% Acute Hypoxic Respiratory Distress - Secondary to pneumonia and evolving severe ARDS - Patient intubated successfully at bedside - ABG consistent with metabolic acidosis - Patient is still requiring 100% FiO2; will attempt increasing PEEP today and weaning FiO2 as tolerated Severe ARDS - PaO2/FiO2 score 61 - Chest x-ray does show some evolution of bilateral opacification - Start cisatracurium infusion 24 hours; BIS score goal less than 60 - Check ABG every 4 hours 24 hours Right Lobar PNA - Continue Vancomycin, Levaquin and Cefepime (See ID below) - Blood cultures are speciating strep pneumo; sensitivities pending Concern for Lung Neoplasm - Cardiothoracic surgery has been consulted - Bronchoscopy performed at bedside; see separate report - Patient is currently in septic state; we have discussed with radiology the possibility of doing a biopsy for possible neoplasm evaluation; this should be held off at this time GASTROINTESTINAL - Diet: NPO, OG tube placed; patient is currently on pressors, therefore enteral feeding is relatively contraindicated at this time - GI Prophylaxis: Protonix 40 IV daily to be started today - Bowel regimen: Polyethylene glycol Shock Liver/Transaminitis -Liver profile labs improving today, and to need to monitor daily Severe protein calorie malnutrition - As reflected by hypoalbuminemia - Will start thiamine 250 IV daily 5 days to assist with lactate metabolism RENAL//ENDOCRINE - Fluid Balance; positive 7207 ml since admission Urine output yesterday 27 mL/kg/hr; Goal Urine Output > 0.5 ml/kg/hr - Cr:1.1, improving (1.4 on admission) - Electrolytes: Normal Na 139, K 0.1, chloride is 102, bicarbonate 25, BUN 37, creatinine 1.1 Mag 2.6, phosphorus 1.8, Ca 7 (albumin 1.4) - IV Fluids: Discontinue IV fluids as patient has already been aggressively fluid resuscitated Acute Kidney Injury - Cr 1.4 on admission today; 1.1 today; they still reflect continued AZUCENA given her small body habitus Type 1 Diabetes Mellitus, uncontrolled - Continue Novolin - Sliding scale coverage - BSG 160-220 - HbA1c 8.1 - Start insulin infusion Grave's Disease - TSH 4.4; fT4 1.04; TSI pending HEME/INFECTIOUS DISEASE - Tmax: 37.5 WBC: 20, and crease from 8 - Hb/Hct 13/37 respectively, stable - Plt: 206, 252 yesterday - Infectious diseases been consulted Sepsis/Septic Shock secondary to Right Lobar Pneumonia - Antibiotics: Vancomycin, Cefepime, Levaquin Day 2 - Blood cultures speciating strep pneumo; sensitivities pending If sensitivities permit, will treat strep pneumo with synergistic combination of Levaquin and Rocephin - Lactate 7.4 today; pro-calcitonin increased to 31; follow daily lactate and pro-calcitonin DVT Prophylaxis: Heparin 5000 s.c TID LINES/IV ACCESS - Right IJ triple lumen catheter - Right antecubital CODE STATUS - Full Code - Designates to be substitute decision-maker if she cannot make decisions herself DISPOSITION - OT/PT: Will benefit from OT/PT evaluation when acute illness is resolved - Patient comes from home where she lives independently Resident Physician Supervision Note: Dr. Ortiz was resident physician during care of patient. I separately evaluated patient and did history and exam. I discussed the case with the resident and generally agree with the findings and plan. Started neuromuscular blockade for severe ARDS p/f ratio less than 100. Patient was flipping in and out of atrial fibrillation with rapid ventricular response requiring emergent cardioversion secondary to hypotension. Patient was started on amiodarone to assist with chemical cardioversion, she was still significantly tachycardic so digoxin was added to the medication regimen. I have personally spent 125 minutes of critical care time in the direct management of this patient. This is a life/limb threatening event. This includes time spent evaluating patient, direct bedside care, chart review, placing orders, interpretation of diagnostic studies, discussion with consultants, patient, and family members, as well as other required patient management activities. This time is exclusive of all separately billable procedures, and teaching time and separate from and in addition to any other critical care service time. Documented By: Juan Joshi DO Consults & Procedures Consultants: Infectious diseases Procedures: None today Data Medications: Current Inpatient Medications Medications (Trade) Dose Ordered Sig/Sarthak Route Start Time Stop Time Status Last Admin Dose Admin Acetaminophen (Tylenol Tab) 650 mg Q4H PRN PO 08/04/16 04:30 09/03/16 04:29 08/04/16 06:35 650 MG Al Hydrox/Mg Hydrox/Simethicone (Maalox Max Susp) 15 ml Q4H PRN PO 08/04/16 04:30 09/03/16 04:29 Magnesium Hydroxide (Milk Of Magnesia Susp) 30 ml Q12H PRN PO 08/04/16 04:30 09/03/16 04:29 Ondansetron HCl (Zofran Inj) 4 mg Q6H PRN IV 08/04/16 04:30 09/03/16 04:29 Nitroglycerin (Nitrostat Tab) 0.4 mg UD PRN SL 08/04/16 04:30 09/03/16 04:29 Polyethylene (Miralax Powder Packet) 17 gm DAILY PRN PO 08/04/16 04:30 09/03/16 04:29 Glucose (Glucose 40% Gel) 15-30 GRAMS 15 GRAMS... UD PRN PO 08/04/16 04:30 09/03/16 04:29 Glucose (Glucose Chew Tab) 4-8 Tablets 4 Tabl... UD PRN PO 08/04/16 04:30 09/03/16 04:29 Dextrose (Dextrose 50% 50ML Syringe) 25-50ML OF 50% DW IV FOR... UD PRN IV 08/04/16 04:30 09/03/16 04:29 Glucagon (Glucagon Inj) 1 mg UD PRN SQ 08/04/16 04:30 09/03/16 04:29 Artificial Tears (Lacri-Lube Oph Oint) 1 appln HS OPR 08/04/16 21:00 09/03/16 20:59 08/04/16 22:02 1 APPLN Lisinopril (Zestril Tab) 1.25 mg QAM PO 08/04/16 09:00 09/03/16 08:59 Future Hold Lorazepam (Ativan Tab) 0.5 mg HS PO 08/04/16 21:00 09/03/16 20:59 Multivitamins (Multivitamin Tab) 1 tab DAILY PO 08/04/16 09:00 09/03/16 08:59 08/05/16 08:53 1 TAB Simvastatin 5 mg 5 mg HS PO 08/04/16 21:00 09/03/16 20:59 08/04/16 21:43 5 MG Levofloxacin 750 mg/Prmx 150 ml @ 100 mls/hr Q48H IV 08/06/16 04:00 08/10/16 10:00 Piperacillin Sod/ Tazobactam Sod/ Dextrose (Zosyn Iv/D5 100ml) 115 ml @ 28 mls/hr Q8H IV 08/04/16 08:00 08/11/16 07:59 08/05/16 08:53 28 MLS/HR Piperacillin Sod/ Tazobactam Sod (Consult) 1 ea UD PRN N/A 08/04/16 05:00 09/03/16 04:59 Levofloxacin (Consult) 1 ea UD PRN N/A 08/04/16 05:00 09/03/16 04:59 Miscellaneous Information 1 ea 1 ea UD PRN N/A 08/04/16 10:51 09/03/16 10:50 Pantoprazole Sodium/Syringe (Protonix Inj/ Syringe) 10 ml @ 5 mls/min DAILY@11 IV 08/05/16 11:00 09/04/16 10:59 08/05/16 11:27 5 MLS/MIN Heparin Sodium (Porcine) (Heparin Sq 5000 Unit/0.5ml) 5,000 unit Q8 SQ 08/04/16 22:00 09/03/16 21:59 08/05/16 06:26 5,000 UNIT Ipratropium [place] (Atrovent Hfa Inhaler) 4 puffs Q6H INH 08/04/16 21:00 09/03/16 20:59 08/05/16 08:42 4 PUFFS Levalbuterol 4 puffs 4 puffs Q6H INH 08/04/16 21:00 09/03/16 20:59 08/05/16 08:42 4 PUFFS Linezolid/Prmx (Zyvox / D5W/ Premixed D5W) 300 ml @ 300 mls/hr Q12H IV 08/04/16 22:00 08/11/16 21:59 08/05/16 11:27 300 MLS/HR Heparin Sodium (Porcine) 5 ml 5 ml PRN PRN FLUSH 08/05/16 00:45 09/04/16 00:44 Sodium Phosphate 21 mmol/Sodium Chloride 507 ml @ 88 mls/hr TODAY@0615 IV 08/05/16 06:15 08/05/16 12:01 08/05/16 06:24 88 MLS/HR Phenylephrine HCl 80 mg/Dextrose 508 ml @ 0 mls/hr Q0M PRN IV 08/05/16 09:45 09/04/16 09:44 Potassium Phosphate 9 mmol/ Sodium Chloride 253 ml @ 88 mls/hr NOW ONCE IV 08/05/16 09:45 08/05/16 12:37 08/05/16 11:24 88 MLS/HR Thiamine HCl 250 mg/Sodium Chloride 27.5 ml @ 50 mls/hr Q24H IV 08/05/16 11:00 08/09/16 11:32 08/05/16 11:25 50 MLS/HR Midazolam HCl (Midazolam 125MG/ 250ML D5w) 250 ml @ 0 mls/hr Q0M PRN IV 08/05/16 09:46 09/04/16 09:45 Fentanyl Citrate 50 mcg 50 mcg Q2H IV 08/05/16 12:00 08/19/16 11:59 Cisatracurium Besylate/Sodium Chloride (Nimbex INJ/Nss 100ml) 100 ml @ 0 mls/hr Q0M PRN IV 08/05/16 10:00 09/04/16 09:59 08/05/16 11:22 9.6 MLS/HR Insulin Aspart SLIDING SCALE PCHS SC 08/05/16 12:00 09/04/16 11:59 Insulin Human Regular 1.5 unit/ Syringe 1.5 ml @ 3 mls/min TODAY@1130 IV 08/05/16 11:30 08/05/16 11:31 08/05/16 11:23 3 MLS/MIN Insulin Human Regular/Sodium Chloride (novoLIN-R/Nss 250ml) 252.5 ml @ 0 mls/hr DAILY@1130 IV 08/05/16 11:30 09/04/16 11:29 08/05/16 11:24 1.6 MLS/HR I & O: 24-Hour Column 08/05/16 08:00 Intake Total 9203 ml Output Total 575 ml Balance 8628 ml Vital Signs: Date Time Temp Pulse Resp B/P Pulse Ox O2 Delivery O2 Flow Rate FiO2 08/05/16 09:56 60 08/05/16 08:29 80 08/05/16 08:00 100 08/05/16 08:00 Mechanical Ventilator 100 08/05/16 08:00 37.3 104 39 134/78 93 Mechanical Ventilator 100 104/50 08/05/16 07:10 100 08/05/16 06:00 91 34 89/53 93 Mechanical Ventilator 100 08/05/16 05:40 100 08/05/16 05:00 92 37 76/50 93 Mechanical Ventilator 100 08/05/16 04:00 100 08/05/16 04:00 37.1 89 33 86/53 99 Mechanical Ventilator 100 110/62 08/05/16 04:00 Mechanical Ventilator 100 08/05/16 03:00 93 33 84/53 97 Mechanical Ventilator 100 08/05/16 02:00 100 36 97/56 96 Mechanical Ventilator 100 125/62 08/05/16 01:55 100 08/05/16 01:00 103 34 83/51 96 Mechanical Ventilator 100 132/66 08/05/16 00:05 Mechanical Ventilator 100 08/05/16 00:05 100 08/05/16 00:00 37.5 101 36 76/46 94 Mechanical Ventilator 100 128/71 08/04/16 23:00 100 36 82/48 93 Mechanical Ventilator 08/04/16 22:55 100 08/04/16 22:00 99 32 100/56 95 Mechanical Ventilator 08/04/16 22:00 127/76 08/04/16 21:00 97 28 74/49 96 Mechanical Ventilator 08/04/16 20:00 129/79 08/04/16 20:00 100 08/04/16 20:00 Mechanical Ventilator 100 3/27/17 20:00 36.5 97 36 103/63 100 08/04/16 19:47 100 08/04/16 18:00 90 35 118/73 102/66 08/04/16 18:00 100 08/04/16 17:00 88 37 137/69 106/86 08/04/16 16:53 86 33 127/85 97 122/72 08/04/16 16:00 36.6 08/04/16 16:00 80 31 97 105/63 08/04/16 16:00 90 Mechanical Ventilator 08/04/16 16:00 100 08/04/16 15:10 100 08/04/16 13:52 132 77/47 08/04/16 12:40 101 18 141/66 95 Mechanical Ventilator 100 08/04/16 12:38 103 18 152/69 95 Mechanical Ventilator 100 08/04/16 12:36 99 18 143/63 95 Mechanical Ventilator 100 08/04/16 12:34 89 18 151/60 94 Mechanical Ventilator 100 08/04/16 12:32 106 18 136/69 95 Mechanical Ventilator 100 08/04/16 12:30 110 18 134/69 95 Mechanical Ventilator 100 08/04/16 12:28 103 18 132/67 95 Mechanical Ventilator 100 08/04/16 12:26 102 18 124/64 95 Mechanical Ventilator 100 08/04/16 12:24 101 18 124/63 96 Mechanical Ventilator 100 08/04/16 12:22 101 18 121/61 96 Mechanical Ventilator 100 08/04/16 12:20 101 18 124/61 96 Mechanical Ventilator 100 08/04/16 12:18 100 18 129/67 96 Mechanical Ventilator 100 08/04/16 12:16 100 08/04/16 12:16 101 18 148/69 96 Mechanical Ventilator 100 08/04/16 12:12 176 18 144/88 96 Mechanical Ventilator 100 08/04/16 12:10 176 18 144/80 95 Mechanical Ventilator 100 08/04/16 12:07 173 18 141/79 91 Mechanical Ventilator 100 08/04/16 12:00 105 37 136/73 94 Mask 10.0 08/04/16 12:00 Mask 10.0 Laboratory Results: Last 24 Hours Test 08/04/16 11:42 08/04/16 14:00 08/04/16 14:14 08/04/16 14:15 Blood Gas Sample Site L Radial Art Line Bedside Blood Gas pH (LAB) 7.35 7.16 Bedside Blood Gas pCO2 (LAB) 33 mmHg 61 mmHg Bedside Blood Gas pO2 (LAB) 59 mmHg 82 mmHg Bedside Blood Gas HCO3 (LAB) 18 meq/L 22 meq/L Bedside Blood Gas Total CO2 19 mEq/l 23 mEq/l Bedside Blood Gas Base Excess (LAB) -8.0 meq/L -7.0 meq/L Bedside Blood Gas O2 Saturation 89.0 % 92.0 % Bennie Test Pass Pass Oxygen Delivery Device SimpleMask Ventilator Lactic Acid Level 7.4 mmol/L Phosphorus Level 3.1 mg/dl Magnesium Level 1.9 mg/dl Thyroid Stimulating Hormone (TSH) 4.450 uIu/ml Free Thyroxine 1.04 ng/dl Random Cortisol 130.69 mcg/dl Hepatitis B Surface Antigen NEG Hepatitis C Antibody NEG Bedside Oxygen Rate (breaths/min) 18 Blood Gas Minute Ventilation 8.9 Bedside FiO2 100 % Blood Gas Tidal Volume 450 Blood Gas PEEP 6 Urine Color DK YELLOW Urine Appearance CLOUDY Urine pH 5.0 Urine Specific [place] 1.027 Urine Protein 1+ Urine Glucose (UA) TRACE Urine Ketones NEG Urine Occult Blood NEG Urine Nitrite NEG Urine Bilirubin NEG Urine Urobilinogen NEG Urine Leukocyte Esterase NEG Urine WBC (Auto) 1-5 /hpf Urine RBC (Auto) 0-4 /hpf Urine Hyaline Casts (Auto) 5-10 /lpf Urine Epithelial Cells (Auto) >30 /lpf Urine Bacteria (Auto) NEG Urine Renal Epithelial Cells /lpf Urine Pathogenic Casts 5-10 GRANULAR CASTS /lpf Test 08/04/16 15:52 08/04/16 16:30 08/04/16 16:36 08/04/16 17:55 Lactic Acid Level 7.3 mmol/L 7.7 mmol/L Total Creatine Kinase 27 U/L Creatine Kinase MB < 0.5 ng/ml Creatine Kinase MB Ratio Troponin I 0.041 ng/ml Bedside Glucose (other) 232 mg/dl Test 08/04/16 19:37 08/04/16 21:39 08/05/16 00:21 08/05/16 00:35 Blood Gas Sample Site Art Line Art Line Bedside Blood Gas pH (LAB) 7.39 7.34 Bedside Blood Gas pCO2 (LAB) 42 mmHg 44 mmHg Bedside Blood Gas pO2 (LAB) 74 mmHg 66 mmHg Bedside Blood Gas HCO3 (LAB) 25 meq/L 24 meq/L Bedside Blood Gas Total CO2 26 mEq/l 25 mEq/l Bedside Blood Gas Base Excess (LAB) 0.0 meq/L -2.0 meq/L Bedside Blood Gas O2 Saturation 95.0 % 92.0 % Bennie Test NA NA Oxygen Delivery Device Ventilator Ventilator Bedside Oxygen Rate (breaths/min) 28 28 Blood Gas Minute Ventilation 14.3 12.4 Bedside FiO2 100 % 100 % Blood Gas Tidal Volume 500 500 Blood Gas PEEP 6 6 Bedside Glucose (other) 275 mg/dl 309 mg/dl Sodium Level 139 mmol/L Potassium Level 4.2 mmol/L Chloride Level 101 mmol/L Carbon Dioxide Level 23 mmol/L Anion Gap 15.0 mmol/L Blood Urea Nitrogen 37 mg/dl Creatinine 1.20 mg/dl Est Creatinine Clear Calc Drug Dose 38.7 ml/min Estimated GFR () 52.7 Estimated GFR (Non- 45.4 BUN/Creatinine Ratio 30.5 Random Glucose 293 mg/dl Lactic Acid Level 8.4 mmol/L Calcium Level 7.0 mg/dl Phosphorus Level 1.8 mg/dl Magnesium Level 2.7 mg/dl Total Bilirubin 0.9 mg/dl Aspartate Amino Transf (AST/SGOT) 125 U/L Alanine Aminotransferase (ALT/SGPT) 60 U/L Alkaline Phosphatase 105 U/L Total Creatine Kinase 24 U/L Creatine Kinase MB 0.8 ng/ml Creatine Kinase MB Ratio 3.3 Troponin I 0.028 ng/ml Total Protein 5.3 gm/dl Albumin 1.5 gm/dl Globulin 3.8 gm/dl Albumin/Globulin Ratio 0.4 Test 08/05/16 04:19 08/05/16 04:57 08/05/16 06:24 08/05/16 07:41 Bedside Glucose (other) 231 mg/dl 221 mg/dl White Blood Count 20.59 K/uL Red Blood Count 4.15 M/uL Hemoglobin 13.0 g/dL Hematocrit 37.6 % Mean Corpuscular Volume 90.6 fL Mean Corpuscular Hemoglobin 31.3 pg Mean Corpuscular Hemoglobin Concent 34.6 g/dl Platelet Count 206 K/uL Mean Platelet Volume 11.5 fL RDW Standard Deviation 48.2 fL RDW Coefficient of Variation 14.6 % Nucleated RBC Absolute Count (auto) 0.15 K/uL Neutrophils % (Manual) 84.4 % Lymphocytes % (Manual) 8.7 % Monocytes % (Manual) 1.7 % Metamyelocytes % 5.2 % Nucleated Red Blood Cells % 0.7 % Neutrophils # (Manual) 17.38 K/uL Total Absolute Neutrophils 17.38 K/uL Lymphocytes # (Manual) 1.79 K/uL Total Absolute Lymphocytes 1.79 K/uL Monocytes # (Manual) 0.35 K/uL Metamyelocytes # 1.07 K/uL Toxic Granulation 1+ Platelet Estimate NORMAL Large Platelets 1+ Echinocytes 2+ Sodium Level 139 mmol/L Potassium Level 4.1 mmol/L Chloride Level 102 mmol/L Carbon Dioxide Level 25 mmol/L Anion Gap 12.0 mmol/L Blood Urea Nitrogen 37 mg/dl Creatinine 1.10 mg/dl Est Creatinine Clear Calc Drug Dose 42.2 ml/min Estimated GFR () 58.5 Estimated GFR (Non- 50.5 BUN/Creatinine Ratio 33.9 Random Glucose 229 mg/dl Lactic Acid Level 7.4 mmol/L Calcium Level 7.0 mg/dl Phosphorus Level 1.8 mg/dl Magnesium Level 2.6 mg/dl Total Bilirubin 0.8 mg/dl Aspartate Amino Transf (AST/SGOT) 107 U/L Alanine Aminotransferase (ALT/SGPT) 54 U/L Alkaline Phosphatase 104 U/L Total Protein 5.0 gm/dl Albumin 1.4 gm/dl Globulin 3.6 gm/dl Albumin/Globulin Ratio 0.4 Procalcitonin 31.83 ng/mL Blood Gas Sample Site Art Line Bedside Blood Gas pH (LAB) 7.33 Bedside Blood Gas pCO2 (LAB) 41 mmHg Bedside Blood Gas pO2 (LAB) 61 mmHg Bedside Blood Gas HCO3 (LAB) 21 meq/L Bedside Blood Gas Total CO2 23 mEq/l Bedside Blood Gas Base Excess (LAB) -5.0 meq/L Bedside Blood Gas O2 Saturation 89.0 % Bennie Test NA Oxygen Delivery Device Ventilator Bedside Oxygen Rate (breaths/min) 28 Blood Gas Minute Ventilation 16.5 Bedside FiO2 100 % Blood Gas Tidal Volume 500 Blood Gas PEEP 6 Test 08/05/16 08:50 Total Creatine Kinase 28 U/L Creatine Kinase MB 0.9 ng/ml Creatine Kinase MB Ratio 3.2 Troponin I 0.028 ng/ml
--- NOTE | 2016-08-05 12:30 | Progress Note ---
Progress Note Date of Service Aug 05, 2016. Progress Note ID Consult Dictated #[id number] A/P: 1. Septic Shock with MODS 2. S. pneumo Septicemia 3. R pna - severe 4. Leukocytosis -Agree with broad spectrum abx pending final cultures -Await broch cultures, repeat blood cultures -Likely narrow abx after final cultures return -flu swab -Will follow, thank you
--- NOTE | 2016-08-05 13:28 | INFECT. DISEASE CONSULTATION ---
DATE OF CONSULTATION: 08/05/2016 REQUESTING PHYSICIAN: Dr. Gibson. HISTORY OF PRESENT ILLNESS: This is a 71-year-old female who was admitted after she had worsening shortness of breath, chest pain and weakness over a period of 5 days. Her is present at the bedside and he gives her history. He states that she has been sick on and off since April of this year. She was being treated for sinusitis previously. She did have some improvement but then within the last week she had worsening symptoms of cough, shortness of breath and right-sided chest pain. She was seen in urgent care center this past Thursday and was discharged to home with no antibiotic therapy. It appears that a flu swab may have been done; however, he is not sure of the result of this. She did not have any imaging of her chest done and she was not prescribed any antibiotics. She continued to worsen Thursday and Thursday and she presented to the hospital. She continued to have right-sided chest pain. In the Emergency Room, she was afebrile. She did have a white blood cell count of 8.7. She did have chest x-ray findings consistent with pneumonia. She also had a CAT scan of the chest, which showed a right-sided effusion and right lower lobe and middle lobe consolidation with questionable obstruction of the bronchus. She was placed on broad-spectrum antibiotics consisting of Levaquin and Zosyn. Today Zyvox was added. Infectious disease was asked to see this patient for Zyvox clearance. She has been tolerating the antibiotics well. Today, her white count has increased to 20,000. Yesterday, she had continued work of breathing and oxygen requirement and was subsequently transferred to the intensive care unit and intubated. She was also seen by CT surgery. She did have blood cultures as part of her initial workup and is growing strep pneumo in 2/2 sets. Repeat blood cultures are pending. She did undergo bronchoscopy yesterday and multiple cultures are pending at this time. On my examination, she is sedated on the ventilator. Her arterial pressure is 112 systolic on my examination today. She appears to be tolerating antibiotics well. PAST MEDICAL HISTORY: Significant for dyslipidemia, hyperglycemia, osteoporosis, type 1 diabetes, and thyroid disease. PAST SURGICAL HISTORY: Significant for repair of a previous hip fracture. FAMILY HISTORY: Noncontributory. SOCIAL HISTORY: Negative for tobacco use, alcohol use or drug use. She is and lives with her family. She did have a flu shot this year. Her does not believe she has been vaccinated against pneumonia. ALLERGIES: SHE HAS ALLERGIES TO ADHESIVES AND SULFA ANTIBIOTICS. CURRENT MEDICATIONS: Include levofloxacin, fentanyl, insulin, Protonix, thiamine, phenylephrine, subQ heparin, linezolid, Ativan, Zocor, Atrovent, Xopenex, multivitamins, Zosyn, Tylenol, Maalox, milk of magnesia, MiraLax and Zofran. PHYSICAL EXAMINATION: VITAL SIGNS: She has been afebrile since admission to the hospital, pulse is 104, respiratory rate is in the 30s, blood pressure is 104/50 by arterial line and she is 93% on 100% FIO2. GENERAL: She is sedated on the ventilator. HEART: Regular and tachycardic. LUNGS: Clear bilaterally with decreased breath sounds. ABDOMEN: Nondistended. There is no edema. SKIN: Without rash. There is a right IJ triple lumen catheter in place. LABORATORY STUDIES: CBC reveals a white blood cell count of 20.5, hemoglobin is 13, platelets are 206. Chemistry panel: Sodium 139, potassium 4.1, chloride 102, bicarbonate 25, BUN 37, creatinine 1.1, glucose is 229. LFTs reveal an AST of 107, ALT is 54, lactic acid overnight was 8.4. Urinalysis was unremarkable. Hepatitis antibodies are negative. Blood cultures from the are growing strep pneumoniae. Sensitivities are pending. Bronchoscopy cultures are pending. Repeat blood cultures from the are pending. Most recent imaging x-ray done this morning shows persistent dense consolidation in the right mid and lower lung zone slightly improved. ASSESSMENT AND PLAN: 1. Strep pneumonia septicemia. 2. Right middle lobe pneumonia. 3. Leukocytosis. At this time, she will remain on broad-spectrum antibiotics pending the final sensitivities for strep pneumonia. A flu swab should be obtained as well for completeness. Repeat blood cultures are pending and I will follow the results of those in addition to her bronch cultures. She will remain in the intensive care unit under supportive care. We will follow along with you. Thank you for this consultation.
[2016-08-05 14:00] LABS: ISTAT ARTERIAL BLOOD GAS HCO3 21 meq/L (19-24); ISTAT ARTERIAL BLOOD GAS PCO2 38 mmHg (35-46); ISTAT ARTERIAL BLOOD GAS PO2 55 mmHg (80-95); ISTAT ARTERIAL BLOOD GAS pH 7.36 (7.35-7.45); ISTAT CARBON DIOXIDE 22 mEq/l (24-31); ISTAT DELIVERY SYSTEM Ventilator; ISTAT FIO2 60 %; ISTAT PEEP 10; ISTAT RATE 34; ISTAT SITE Art Line; VE 13.4; Vt 420
--- NOTE | 2016-08-05 14:10 | Progress Note ---
Subjective Date of Service: Aug 05, 2016. Subjective Pt evaluation today including: physical exam, chart review, lab review, review of studies, conversation w/ production consultant, review of inpatient medication list Intubated and sedated, afebrile, MAXIMUM TEMPERATURE was 37.5 last night, possible decreased urine output Problem List Medical Problems: (1) Ankle fracture, left Status: Acute (2) Dyslipidemia Status: Chronic (3) Hypoxia Status: Acute (4) Osteoporosis Nos Status: Chronic (5) Pneumonia involving right lung Status: Acute (6) Type 1 diabetes Status: Chronic Review of Systems Constitutional: + problem reported (not able to obtain because of sedated) Objective Vital Signs Date Time Temp Pulse Resp B/P Pulse Ox O2 Delivery O2 Flow Rate FiO2 08/05/16 12:00 Mechanical Ventilator 60 08/05/16 12:00 37.4 94 34 136/74 93 Mechanical Ventilator 60 113/58 08/05/16 12:00 60 08/05/16 10:00 94 34 129/74 91 Mechanical Ventilator 60 106/53 08/05/16 09:56 60 08/05/16 08:29 80 08/05/16 08:00 100 08/05/16 08:00 Mechanical Ventilator 100 08/05/16 08:00 37.3 104 39 134/78 93 Mechanical Ventilator 100 104/50 08/05/16 07:10 100 08/05/16 06:00 91 34 89/53 93 Mechanical Ventilator 100 08/05/16 05:40 100 08/05/16 05:00 92 37 76/50 93 Mechanical Ventilator 100 08/05/16 04:00 100 08/05/16 04:00 37.1 89 33 86/53 99 Mechanical Ventilator 100 110/62 08/05/16 04:00 Mechanical Ventilator 100 08/05/16 03:00 93 33 84/53 97 Mechanical Ventilator 100 08/05/16 02:00 100 36 97/56 96 Mechanical Ventilator 100 125/62 08/05/16 01:55 100 08/05/16 01:00 103 34 83/51 96 Mechanical Ventilator 100 132/66 08/05/16 00:05 Mechanical Ventilator 100 08/05/16 00:05 100 08/05/16 00:00 37.5 101 36 76/46 94 Mechanical Ventilator 100 128/71 08/04/16 23:00 100 36 82/48 93 Mechanical Ventilator 08/04/16 22:55 100 08/04/16 22:00 99 32 100/56 95 Mechanical Ventilator 08/04/16 22:00 127/76 08/04/16 21:00 97 28 74/49 96 Mechanical Ventilator 08/04/16 20:00 129/79 08/04/16 20:00 100 08/04/16 20:00 Mechanical Ventilator 100 08/04/16 20:00 36.5 97 36 103/63 100 08/04/16 19:47 100 08/04/16 18:00 90 35 118/73 102/66 08/04/16 18:00 100 08/04/16 17:00 88 37 137/69 106/86 08/04/16 16:53 86 33 127/85 97 122/72 08/04/16 16:00 36.6 08/04/16 16:00 80 31 97 105/63 08/04/16 16:00 90 Mechanical Ventilator 08/04/16 16:00 100 08/04/16 15:10 100 Physical Exam General Appearance: WD/WN, no apparent distress, + thin, + pertinent finding ( intubated) Eyes: PERRL, EOMI, sclerae normal ENT: + pertinent finding (lips mucosa looks mildly dry) Neck: supple, no adenopathy, thyroid normal, no JVD, no carotid bruits, trachea midline Respiratory/Chest: chest non-tender, no respiratory distress, no accessory muscle use, + decreased breath sounds, + rales, + pertinent finding (intubated) Cardiovascular: regular rate, rhythm, no edema, no gallop, no JVD, no murmur Abdomen: normal bowel sounds, soft, no organomegaly, no pulsatile mass Extremities: normal inspection, no pedal edema, no calf tenderness, normal capillary refill, pelvis stable, + swelling (trace edema) Neurologic/Psychiatric: + pertinent finding (sedated) Skin: normal color, warm/dry, no rash Lymphatic: no adenopathy Laboratory Results Last 24 Hours Test 08/04/16 14:00 08/04/16 14:14 08/04/16 14:15 08/04/16 15:52 Lactic Acid Level 7.4 mmol/L 7.3 mmol/L Phosphorus Level 3.1 mg/dl Magnesium Level 1.9 mg/dl Thyroid Stimulating Hormone (TSH) 4.450 uIu/ml Free Thyroxine 1.04 ng/dl Random Cortisol 130.69 mcg/dl Hepatitis B Surface Antigen NEG Hepatitis C Antibody NEG Blood Gas Sample Site Art Line Bedside Blood Gas pH (LAB) 7.16 Bedside Blood Gas pCO2 (LAB) 61 mmHg Bedside Blood Gas pO2 (LAB) 82 mmHg Bedside Blood Gas HCO3 (LAB) 22 meq/L Bedside Blood Gas Total CO2 23 mEq/l Bedside Blood Gas Base Excess (LAB) -7.0 meq/L Bedside Blood Gas O2 Saturation 92.0 % Bennie Test Pass Oxygen Delivery Device Ventilator Bedside Oxygen Rate (breaths/min) 18 Blood Gas Minute Ventilation 8.9 Bedside FiO2 100 % Blood Gas Tidal Volume 450 Blood Gas PEEP 6 Urine Color DK YELLOW Urine Appearance CLOUDY Urine pH 5.0 Urine Specific [place] 1.027 Urine Protein 1+ Urine Glucose (UA) TRACE Urine Ketones NEG Urine Occult Blood NEG Urine Nitrite NEG Urine Bilirubin NEG Urine Urobilinogen NEG Urine Leukocyte Esterase NEG Urine WBC (Auto) 1-5 /hpf Urine RBC (Auto) 0-4 /hpf Urine Hyaline Casts (Auto) 5-10 /lpf Urine Epithelial Cells (Auto) >30 /lpf Urine Bacteria (Auto) NEG Urine Renal Epithelial Cells /lpf Urine Pathogenic Casts 5-10 GRANULAR CASTS /lpf Test 08/04/16 16:30 08/04/16 16:36 08/04/16 17:55 08/04/16 19:37 Total Creatine Kinase 27 U/L Creatine Kinase MB < 0.5 ng/ml Creatine Kinase MB Ratio Troponin I 0.041 ng/ml Bedside Glucose (other) 232 mg/dl Lactic Acid Level 7.7 mmol/L Blood Gas Sample Site Art Line Bedside Blood Gas pH (LAB) 7.39 Bedside Blood Gas pCO2 (LAB) 42 mmHg Bedside Blood Gas pO2 (LAB) 74 mmHg Bedside Blood Gas HCO3 (LAB) 25 meq/L Bedside Blood Gas Total CO2 26 mEq/l Bedside Blood Gas Base Excess (LAB) 0.0 meq/L Bedside Blood Gas O2 Saturation 95.0 % Bennie Test NA Oxygen Delivery Device Ventilator Bedside Oxygen Rate (breaths/min) 28 Blood Gas Minute Ventilation 14.3 Bedside FiO2 100 % Blood Gas Tidal Volume 500 Blood Gas PEEP 6 Test 08/04/16 21:39 08/05/16 00:21 08/05/16 00:35 08/05/16 04:19 Bedside Glucose (other) 275 mg/dl 309 mg/dl 231 mg/dl Blood Gas Sample Site Art Line Bedside Blood Gas pH (LAB) 7.34 Bedside Blood Gas pCO2 (LAB) 44 mmHg Bedside Blood Gas pO2 (LAB) 66 mmHg Bedside Blood Gas HCO3 (LAB) 24 meq/L Bedside Blood Gas Total CO2 25 mEq/l Bedside Blood Gas Base Excess (LAB) -2.0 meq/L Bedside Blood Gas O2 Saturation 92.0 % Bennie Test NA Oxygen Delivery Device Ventilator Bedside Oxygen Rate (breaths/min) 28 Blood Gas Minute Ventilation 12.4 Bedside FiO2 100 % Blood Gas Tidal Volume 500 Blood Gas PEEP 6 Sodium Level 139 mmol/L Potassium Level 4.2 mmol/L Chloride Level 101 mmol/L Carbon Dioxide Level 23 mmol/L Anion Gap 15.0 mmol/L Blood Urea Nitrogen 37 mg/dl Creatinine 1.20 mg/dl Est Creatinine Clear Calc Drug Dose 38.7 ml/min Estimated GFR () 52.7 Estimated GFR (Non- 45.4 BUN/Creatinine Ratio 30.5 Random Glucose 293 mg/dl Lactic Acid Level 8.4 mmol/L Calcium Level 7.0 mg/dl Phosphorus Level 1.8 mg/dl Magnesium Level 2.7 mg/dl Total Bilirubin 0.9 mg/dl Aspartate Amino Transf (AST/SGOT) 125 U/L Alanine Aminotransferase (ALT/SGPT) 60 U/L Alkaline Phosphatase 105 U/L Total Creatine Kinase 24 U/L Creatine Kinase MB 0.8 ng/ml Creatine Kinase MB Ratio 3.3 Troponin I 0.028 ng/ml Total Protein 5.3 gm/dl Albumin 1.5 gm/dl Globulin 3.8 gm/dl Albumin/Globulin Ratio 0.4 Test 08/05/16 04:57 08/05/16 06:24 08/05/16 07:41 08/05/16 08:50 White Blood Count 20.59 K/uL Red Blood Count 4.15 M/uL Hemoglobin 13.0 g/dL Hematocrit 37.6 % Mean Corpuscular Volume 90.6 fL Mean Corpuscular Hemoglobin 31.3 pg Mean Corpuscular Hemoglobin Concent 34.6 g/dl Platelet Count 206 K/uL Mean Platelet Volume 11.5 fL RDW Standard Deviation 48.2 fL RDW Coefficient of Variation 14.6 % Nucleated RBC Absolute Count (auto) 0.15 K/uL Neutrophils % (Manual) 84.4 % Lymphocytes % (Manual) 8.7 % Monocytes % (Manual) 1.7 % Metamyelocytes % 5.2 % Nucleated Red Blood Cells % 0.7 % Neutrophils # (Manual) 17.38 K/uL Total Absolute Neutrophils 17.38 K/uL Lymphocytes # (Manual) 1.79 K/uL Total Absolute Lymphocytes 1.79 K/uL Monocytes # (Manual) 0.35 K/uL Metamyelocytes # 1.07 K/uL Toxic Granulation 1+ Platelet Estimate NORMAL Large Platelets 1+ Echinocytes 2+ Sodium Level 139 mmol/L Potassium Level 4.1 mmol/L Chloride Level 102 mmol/L Carbon Dioxide Level 25 mmol/L Anion Gap 12.0 mmol/L Blood Urea Nitrogen 37 mg/dl Creatinine 1.10 mg/dl Est Creatinine Clear Calc Drug Dose 42.2 ml/min Estimated GFR () 58.5 Estimated GFR (Non- 50.5 BUN/Creatinine Ratio 33.9 Random Glucose 229 mg/dl Lactic Acid Level 7.4 mmol/L Calcium Level 7.0 mg/dl Phosphorus Level 1.8 mg/dl Magnesium Level 2.6 mg/dl Total Bilirubin 0.8 mg/dl Aspartate Amino Transf (AST/SGOT) 107 U/L Alanine Aminotransferase (ALT/SGPT) 54 U/L Alkaline Phosphatase 104 U/L Total Protein 5.0 gm/dl Albumin 1.4 gm/dl Globulin 3.6 gm/dl Albumin/Globulin Ratio 0.4 Procalcitonin 31.83 ng/mL Bedside Glucose (other) 221 mg/dl Blood Gas Sample Site Art Line Bedside Blood Gas pH (LAB) 7.33 Bedside Blood Gas pCO2 (LAB) 41 mmHg Bedside Blood Gas pO2 (LAB) 61 mmHg Bedside Blood Gas HCO3 (LAB) 21 meq/L Bedside Blood Gas Total CO2 23 mEq/l Bedside Blood Gas Base Excess (LAB) -5.0 meq/L Bedside Blood Gas O2 Saturation 89.0 % Bennie Test NA Oxygen Delivery Device Ventilator Bedside Oxygen Rate (breaths/min) 28 Blood Gas Minute Ventilation 16.5 Bedside FiO2 100 % Blood Gas Tidal Volume 500 Blood Gas PEEP 6 Total Creatine Kinase 28 U/L Creatine Kinase MB 0.9 ng/ml Creatine Kinase MB Ratio 3.2 Troponin I 0.028 ng/ml Test 08/05/16 12:16 Lactic Acid Level 6.3 mmol/L Assessment and Plan 71 year old female admitted on 08/04/2016 with acute shortness of breath, admitted to the ICU service for the following problems: - Acute Hypoxemic Respiratory Failure likely secondary to severe pneumonia sepsis and septic shock, remains critical - Severe ARDS - Sepsis with Septic Shock - Right Lobar Pneumonia - Abnormal CXR, suspicious for possible mass - Suspected Emphysema on CXR - History of supraventricular tachycardia - History of atrial fibrillation with RVR - Grave's Disease - Protein calorie malnutrition and hypoalbuminemia Continue ICU care, we'll continue follow-up, GI and DVT prophylaxis ordered, Nutrition support CODE STATUS - Full Code - Designates to be substitute decision-maker if she cannot make decisions herself DISPOSITION - OT/PT: Will benefit from OT/PT evaluation when acute illness is resolved Continued [facility] stay due to: multiple IV medications needed Discharge planning: uncertain
[2016-08-05 16:31] LABS: ISTAT ARTERIAL BLOOD GAS HCO3 23 meq/L (19-24); ISTAT ARTERIAL BLOOD GAS PCO2 42 mmHg (35-46); ISTAT ARTERIAL BLOOD GAS PO2 57 mmHg (80-95); ISTAT ARTERIAL BLOOD GAS pH 7.35 (7.35-7.45); ISTAT CARBON DIOXIDE 24 mEq/l (24-31); ISTAT DELIVERY SYSTEM Ventilator; ISTAT FIO2 60 %; ISTAT PEEP 12; ISTAT RATE 34; ISTAT SITE Art Line; VE 13.2; Vt 420
[2016-08-05] MEDS ORDERED: AMIODARONE IV BOLUS / DRIP IV STA (17:01)
[2016-08-05] MEDS ORDERED: AMIODARONE 150MG / 100ML D5W ONE (17:07)
[2016-08-05] MEDS ORDERED: AMIODARONE 360MG / 200ML D5W ONE (17:07)
[2016-08-05] MEDS ORDERED: PHENYTOIN SOD INJ 50 MG/ML 5 ML VIAL ONE (17:13)
[2016-08-05] MEDS ORDERED: DIGOXIN INJ 500 MCG/2 ML AMP ONE (17:14)
[2016-08-05] MEDS ORDERED: SODIUM CHLORIDE 0.9% 500ML 500 ML IV SCH (17:30)
[2016-08-05] MEDS ORDERED: DIGOXIN IV 250 MCG in SYRINGE 9 ML IV ONE (17:30)
[2016-08-05] MEDS ORDERED: AMIODARONE / D5W 100 ML IV ONE (17:30)
[2016-08-05] MEDS: MAGNESIUM SULFATE 1GM / D5W 1 GM in PREMIXED IN D5W 100 ML IV SCH ×2 (17:32→18:38)
--- NOTE | 2016-08-05 17:36 | Progress Note ---
Progress Note Date of Service Aug 05, 2016. (Claudio Ortiz MD) Progress Note I was called to the bedside approximately 1655. Patient was noted to be tachycardic with a rate ranging from 160-190. She was also noted to be hypotensive, with mean arterial pressure between 50-60. Review of rhythm strip showed an SVT with a rate ranging from 160-190 Given acute hemodynamic instability, she was made to proceed with emergent synchronize cardioversion. Patient was given 50 mcg of fentanyl prior to cardioversion Monitor was discharged to 200 J and Sync' mode was activated, shock was delivered. Came down to 110 but returned back to 170 and hypotension persisted. I proceeded to recharge to 120 J and cardiovert in sync mode. Again rate came down to 110 and came back to 160 with patient remaining hypotensive. On her discharged again to 200 J in sync mode patient cardioverted for third time. This time rate came back down to 110 to 130 and remained. MAP returned to 65 though remained borderline. Plan is as follows: - 2 g mag sulfate IV stat - Stat amiodarone infusion - Digoxin 250 g IV now; 150 g, 6 hours from initial dose - Repeat labs - CBC with differential - CMP, mag, phosphorus, lactate - Cardiac enzymes - Stat EKG - Will follow labs and reassess patient frequently. Monitor will remain at the bedside in case SVT persists along with hemodynamic compromise. (Claudio Ortiz MD) I was physically present during the entire procedure. A shunt was emergent gently cardioverted secondary to acute hypotension and acute dysrhythmia, atrial fibrillation with rapid ventricular response. The first and second cardioversions were all unsuccessful in transitioning the patient into normal sinus rhythm. After the third cardioversion the patient returned again into atrial fibrillation with rapid ventricular response all further attempts were halted and the patient was started on an antiarrhythmic. (Juan Joshi D.O.)
[2016-08-05] MEDS ORDERED: AMIODARONE / D5W 200 ML IV SCH (17:39)
[2016-08-05] MEDS ORDERED: NURSING VERBAL MED ORDER ONE (17:45)
[2016-08-05 17:50] LABS: ISTAT ARTERIAL BLOOD GAS HCO3 23 meq/L (19-24); ISTAT ARTERIAL BLOOD GAS PCO2 48 mmHg (35-46); ISTAT ARTERIAL BLOOD GAS PO2 64 mmHg (80-95); ISTAT CARBON DIOXIDE 25 mEq/l (24-31); ISTAT DELIVERY SYSTEM Ventilator; ISTAT FIO2 100 %; ISTAT PEEP 15; ISTAT RATE 34; ISTAT SITE Art Line; VE 13.4; Vt 420
[2016-08-05 17:52] LABS: BUN/CREATININE RATIO 43.7 (10-20); CREATININE 0.91 mg/dl (0.60-1.20); MAGNESIUM 2.4 mg/dl (1.8-2.4); POTASSIUM 3.9 mmol/L (3.5-5.1)
[2016-08-05 17:55] LABS: ALB/GLOB RATIO 0.3 (0.9-2); CKMB/CK RATIO 2.9 (0-3.0); PHOSPHORUS 3.1 mg/dl (2.5-4.9)
--- NOTE | 2016-08-05 18:06 | Procedure Note ---
Procedure Note Date of Service Aug 05, 2016. (Claudio Ortiz MD) Procedure Note Pre-Procedure Diagnosis: Sepsis secondary to right lobar pneumonia Post-Procedure Diagnosis: Same as above, volume responsive Type of Procedure: Limited IVC ultrasound Performing Physician: Dr. Claudio Ortiz, PGY2 Family Medicine Attending/Supervising Physician: Dr. Juan Joshi, Critical Care Attending Medicine Indication: Hypotension, need to determine fluid responsiveness Consent: Patient sedated, therefore consent could not be obtained. Implied consent. Findings: A time out was preformed identifying the correct procedure, the correct location with the nursing staff. Sonosite was used to identify the inferior vena cava. M-mode was used to assess respiratory variability. IVC variability noted to be slightly greater than 10%. Sonosite was subsequently used to assess the heart. The ventricles were noted to be hyperdynamic. Papillary muscles were coming into contact. All findings together suggest that patient would be responsive to additional bolus of fluid. The patient tolerated the procedure well and there were no complications. Complication: None Plan: - 500 ml bolus of normal saline (Claudio Ortiz MD) I was physically present during the entire examination and assisted. (Juan Joshi, D.O.)
[2016-08-05] MEDS ORDERED: SODIUM CHLORIDE 0.9% 500ML 500 ML IV ONE (18:07)
[2016-08-05 18:40] LABS: MEAN CELL VOLUME 87.5 fL (80-100); MEAN CORPUSCULAR HEMOGLOBIN 30.5 pg (25-34); MEAN CORPUSCULAR HGB CONC 34.9 g/dl (32-36); PLATELET COUNT 169 K/uL (130-400); RED BLOOD COUNT 4.23 M/uL (4.2-5.4); WHITE BLOOD COUNT 32.81 K/uL (4.8-10.8)
[2016-08-05 18:43] LABS: COMPLETE YES; DOHLE BODIES 1+; ECHINOCYTES 1+; LYMPH ABS # 1.12 K/uL (1.2-3.4); LYMPHOCYTE % 3.4 %; NEUTROPHILS % 96.6 %; PLT ESTIMATE NORMAL; TOXIC GRANULATION 1+
--- NOTE | 2016-08-05 19:15 | DIAGNOSTIC IMAGING REPORT ---
SINGLE VIEW CHEST CLINICAL HISTORY: Respiratory failure. FINDINGS: An AP, portable, upright chest radiograph is compared to chest x-ray and chest CT performed earlier the same day 08/05/2016. Correlation is made with chest CT dated 08/04/2016. The examination is degraded by portable technique and patient rotation. An endotracheal tube, and enteric tube, and a right internal jugular central venous catheter are unchanged in position. The cardiomediastinal silhouette is unremarkable. There is atherosclerotic calcification of the thoracic aorta. An accessory azygous fissure is incidentally noted. Emphysema and chronic interstitial thickening are identified patchy airspace consolidation throughout the right lung as well as left lower lobe airspace consolidation are unchanged from earlier today. There our small pleural effusions, right larger than left. There is no pneumothorax. The skeletal structures are osteopenic. A mild compression deformity is noted in the lower thoracic spine. IMPRESSION: 1. Stable lines and tubes. 2. Multifocal airspace consolidation, right lung greater than left, as well as small pleural effusions are unchanged from earlier today. Electronically signed by: Yefri Chen M.D. 08/05/2016 7:13 PM Dictated Date/Time: 08/05/2016 7:11 PM
[2016-08-05 20:34] LABS: ISTAT ARTERIAL BLOOD GAS HCO3 23 meq/L (19-24); ISTAT ARTERIAL BLOOD GAS PCO2 48 mmHg (35-46); ISTAT ARTERIAL BLOOD GAS PO2 94 mmHg (80-95); ISTAT CARBON DIOXIDE 25 mEq/l (24-31); ISTAT DELIVERY SYSTEM Ventilator; ISTAT FIO2 100 %; ISTAT PEEP 18; ISTAT RATE 34; ISTAT SITE Art Line; VE 12.7; Vt 400
[2016-08-05] MEDS: SIMVASTATIN 5 MG TAB PO SCH (21:44)
[2016-08-05] MEDS: ARTIFICIAL TEARS OP OINT 3.5 GM TUBE OPR SCH (21:44)
[2016-08-05] MEDS: LORAZEPAM 0.5 MG TAB PO SCH (21:49)
[2016-08-05] MEDS: AMIODARONE / D5W 200 ML IV SCH (22:34)
[2016-08-05] MEDS ORDERED: DIGOXIN IV 125 MCG in SYRINGE 9.5 ML IV ONE (23:30)
[2016-08-06] VITALS (44 sets, daily range): BP systolic 95–169; BP diastolic 36–59; PULSE 68–100; TEMP 36.6–37.3; O2SAT 93–100
[2016-08-06 00:18] LABS: ISTAT ARTERIAL BLOOD GAS HCO3 24 meq/L (19-24); ISTAT ARTERIAL BLOOD GAS PCO2 45 mmHg (35-46); ISTAT ARTERIAL BLOOD GAS PO2 88 mmHg (80-95); ISTAT ARTERIAL BLOOD GAS pH 7.34 (7.35-7.45); ISTAT CARBON DIOXIDE 25 mEq/l (24-31); ISTAT DELIVERY SYSTEM Ventilator; ISTAT FIO2 90 %; ISTAT PEEP 18; ISTAT RATE 34; ISTAT SITE Art Line; VE 12.8; Vt 400
[2016-08-06] MEDS: PIPERACILL/TAZOBAC IV 3.375 GM in DEXTROSE 5% 100ML 100 ML IV SCH (01:05)
[2016-08-06] MEDS: DEXTROSE 50% 50 ML SYR IV PRN (02:02)
[2016-08-06] MEDS: IPRATROPIUM BROMIDE HFA INHALER INH SCH ×4 (02:34→19:51)
[2016-08-06] MEDS: LEValbuterol HFA 15GM INHALER INH SCH ×4 (02:34→19:51)
[2016-08-06] MEDS: CISATRACURIUM BESYLATE INJ 40 MG in SODIUM CHLORIDE 0.9% 100ML 80 ML IV PRN ×2 (02:40→10:23)
[2016-08-06] MEDS ORDERED: LEVOFLOXACIN / D5W 750 MG in PREMIXED IN D5W 150 ML IV SCH (04:00)
[2016-08-06 04:27] LABS: ISTAT ARTERIAL BLOOD GAS HCO3 23 meq/L (19-24); ISTAT ARTERIAL BLOOD GAS PCO2 43 mmHg (35-46); ISTAT ARTERIAL BLOOD GAS PO2 87 mmHg (80-95); ISTAT ARTERIAL BLOOD GAS pH 7.33 (7.35-7.45); ISTAT CARBON DIOXIDE 24 mEq/l (24-31); ISTAT DELIVERY SYSTEM Ventilator; ISTAT FIO2 90 %; ISTAT PEEP 16; ISTAT RATE 34; ISTAT SITE Art Line; VE 12.8; Vt 400
[2016-08-06] MEDS: HEPARIN SOD 5000 UNIT/0.5 ML CARP SQ SCH ×3 (05:39→22:30)
[2016-08-06 06:30] LABS: BUN/CREATININE RATIO 43.6 (10-20); CALCIUM 6.7 mg/dl (8.5-10.1)
[2016-08-06 06:32] LABS: MEAN CELL VOLUME 87.6 fL (80-100); MEAN CORPUSCULAR HEMOGLOBIN 30.2 pg (25-34); MEAN CORPUSCULAR HGB CONC 34.5 g/dl (32-36); MEAN PLATELET VOLUME 11.3 fL (7.4-10.4); PLATELET COUNT 115 K/uL (130-400); RED BLOOD COUNT 3.54 M/uL (4.2-5.4); WHITE BLOOD COUNT 28.99 K/uL (4.8-10.8)
[2016-08-06 06:33] LABS: ALB/GLOB RATIO 0.3 (0.9-2); BASO ABS # 0.26 K/uL (0-0.2); BASOPHIL % 0.9 %; COMPLETE YES; ECHINOCYTES 2+; LYMPH ABS # 1.54 K/uL (1.2-3.4); LYMPHOCYTE % 5.3 %; MYELOCYTE % 0.9 %; NEUTROPHILS % 92.9 %; PHOSPHORUS 3.3 mg/dl (2.5-4.9); PLT ESTIMATE DECREASED; TOXIC GRANULATION 3+
--- NOTE | 2016-08-06 07:19 | DIAGNOSTIC IMAGING REPORT ---
CHEST ONE VIEW PORTABLE CLINICAL HISTORY: Pneumonia, hypoxia. COMPARISON STUDY: 07/28/2016 FINDINGS: There is an endotracheal tube 31 mm above the giorgio. There is a right internal jugular central venous catheter unchanged in position. There is a nasogastric tube which passes into the stomach. There is a small right pleural effusion. There is been slight improvement in the extensive right lung airspace opacities. Airspace opacities are also visualized at the left lung base.[ IMPRESSION: Bilateral pulmonary airspace opacities consistent with pneumonia. Small right pleural effusion. There has been minimal interval improvement on the right. Electronically signed by: Oz Waters M.D. 08/06/2016 7:17 AM Dictated Date/Time: 08/06/2016 7:16 AM
[2016-08-06] MEDS: INSULIN ASPART 100 UNITS/ML 3 ML PEN SC SCH ×4 (08:00→21:00)
[2016-08-06 08:14] LABS: ISTAT ARTERIAL BLOOD GAS HCO3 24 meq/L (19-24); ISTAT ARTERIAL BLOOD GAS PCO2 40 mmHg (35-46); ISTAT ARTERIAL BLOOD GAS PO2 67 mmHg (80-95); ISTAT ARTERIAL BLOOD GAS pH 7.37 (7.35-7.45); ISTAT CARBON DIOXIDE 25 mEq/l (24-31); ISTAT DELIVERY SYSTEM Ventilator; ISTAT FIO2 65 %; ISTAT PEEP 14; ISTAT RATE 34; ISTAT SITE Art Line; VE 12.7; Vt 400
[2016-08-06] MEDS: CEFTRIAXONE SOD INJ 1000 MG in DEXTROSE 5% 50ML IV SCH (10:23)
[2016-08-06] MEDS: AMIODARONE / D5W 200 ML IV SCH ×2 (10:24→22:31)
[2016-08-06] MEDS: MULTIVITAMIN TAB PO SCH (10:25)
[2016-08-06] MEDS: SODIUM CHLORIDE 0.9% IV SCH (10:25)
[2016-08-06] MEDS: THIAMINE HCL IV SCH (10:25)
[2016-08-06] MEDS: ALBUMIN HUMAN 25% 12.5 GM/50 ML VIAL IV SCH ×4 (10:32→12:21)
[2016-08-06] MEDS ORDERED: DORNASE ALFA (2500U) 2.5MG/2.5ML INH ONE (10:56)
--- NOTE | 2016-08-06 10:56 | DIAGNOSTIC IMAGING REPORT ---
BILATERAL LOWER EXTREMITY VENOUS DOPPLER CLINICAL HISTORY: Pneumonia. COMPARISON STUDY: No previous studies for comparison. TECHNIQUE: Sonography of the deep venous system of the bilateral lower extremities was performed. Compression and augmentation were evaluated. FINDINGS: The bilateral common femoral, superficial femoral and popliteal veins were compressible. Augmentation was normal. Flow was shown within the deep calf vessels. IMPRESSION: No evidence of deep venous thrombus within the bilateral lower extremities. Electronically signed by: Tj Friend M.D. 08/06/2016 10:55 AM Dictated Date/Time: 08/06/2016 10:54 AM
--- NOTE | 2016-08-06 11:01 | Medical Student: [facility] ---
Med Student History & Physical Date & Time of Service: Aug 06, 2016 at 10:46 Chief Complaint: Pneumonia Primary Care Physician: Steve Xie M.D. History of Present Illness Source: spouse, hospital records Patient is 71 year old female with PMH of type 1 DM, dyslipidemia, and Grave's disease who presented to the ED on 08/04 with 5 day history of increasing shortness of breath, cough, chest pain, and weakness. Patient is currently intubated so history has been collected from hospital records and who is currently at bed side. She has been feeling unwell since April. Her PCP worked her up for a possible sinus infection.Ten days ago she had "flu-like symptoms" including subjective fever, chills, diarrhea, shortness of breath, dyspnea at rest and on exertion. She went to urgent care last week where she was told she had "[place] crud" and was given cough syrup. By 08/05 her said she was not eating and her cough seemed to be getting weaker. Her blood sugars were consistently in the 300s. Upon arrival at the ED, she was afebrile and hypoxic at 86% on room air. Chest x-ray showed consolidations in the right mid and lower lobes with right pleural effusion suspicious for pneumonia. She was intubated on 08/[address] Jimenez who did a bronchoscopy to rule out possible pneumonia vs malignancy. Bronchial washings and blood cultures were positive for streptococcus pneumonae. On 08/05, patient became tachycardia with heart rates in 160-190 and systolic blood pressures in the 50-60. She was cardioverted out of SVT to NSR using 200J, 120J, and 200J and started on amiodarone. Patient has never smoked. denies recent travel or antibiotic use. Past Medical/Surgical History Medical Problems: (1) Ankle fracture, left Status: Acute (2) Dyslipidemia Status: Chronic (3) Hypoxia Status: Acute (4) Osteoporosis Nos Status: Chronic (5) Pneumonia involving right lung Status: Acute (6) Type 1 diabetes Status: Chronic Surgical Problems: (1) Hip fracture requiring operative repair Status: Resolved Family History Diabetes Social History Smoking Status: Never Smoker Smokeless Tobacco Use: No Alcohol Use: none Drug Use: none Marital Status: Housing status: lives with family Occupational Status: retired Allergies Coded Allergies: Adhesives (Verified Allergy, Mild, RASH-BANDAIDS, 08/04/16) Sulfa Antibiotics (Verified Allergy, Unknown, `, 08/04/16) Medications Alendronate Sodium (Fosamax), 70 MG PO WK Artificial Tear Ointment (Refresh P.m.), 1 APPLN OPR HS Cholecalciferol (Vitamin D3), 1,000 UNIT PO DAILY Insulin Human NPH (Humulin N), UNITS SQ BID Insulin Human Regular (Humulin R), UNITS SQ QAM Lisinopril (Zestril), 1.25 MG PO QAM Lorazepam (Lorazepam), 1 TAB PO HS Multiple Vitamin (Multi-Vitamin), 1 TAB PO DAILY Polyethylene Glycol-Propylene (Systane Gel), 1 DROP OPR HS Simvastatin (Zocor), 5 MG PO HS Review of Systems Constitutional: + chills, + fatigue, + fever, + sweats, + weakness ENT: + hearing loss Respiratory: + cough, + dyspnea at rest, + dyspnea on exertion, + shortness of breath, + wheezing Cardiovascular: + chest pain Abdomen: + diarrhea, + nausea, + vomiting Genitourinary - Female: No dysuria, No hematuria, No urinary frequency, No urinary incontinence, No urinary retention Endocrine: + fatigue Physical Exam Vital Signs (24 Hours) Date Time Temp Pulse Resp B/P Pulse Ox O2 Delivery O2 Flow Rate FiO2 08/06/16 08:00 36.7 08/06/16 08:00 65 08/06/16 08:00 Mechanical Ventilator 65 08/06/16 07:50 65 08/06/16 07:30 93 34 124/58 100 126/44 08/06/16 07:00 92 34 117/56 100 128/44 08/06/16 06:00 92 34 114/39 100 80 08/06/16 05:35 80 08/06/16 04:00 Mechanical Ventilator 90 08/06/16 04:00 36.6 97 34 141/45 99 Mechanical Ventilator 90 08/06/16 04:00 90 08/06/16 03:00 97 34 104/42 100 Mechanical Ventilator 90 08/06/16 02:36 90 08/06/16 02:00 100 34 105/45 100 Mechanical Ventilator 90 08/06/16 01:00 99 34 103/45 100 Mechanical Ventilator 90 08/06/16 00:00 Mechanical Ventilator 90 08/06/16 00:00 37.3 99 34 95/36 100 Mechanical Ventilator 90 08/06/16 00:00 90 08/05/16 23:42 90 08/05/16 23:28 122 08/05/16 23:00 103 34 100/46 100 Mechanical Ventilator 90 08/05/16 22:00 105 34 120/57 100 Mechanical Ventilator 90 08/05/16 21:00 106 34 92/48 96 Mechanical Ventilator 90 08/05/16 20:35 100 08/05/16 20:00 37.4 107 34 83/46 97 Mechanical Ventilator 100 08/05/16 20:00 100 08/05/16 20:00 Mechanical Ventilator 08/05/16 18:10 106 34 112/60 89 Mechanical Ventilator 100 08/05/16 18:00 105 34 144/70 89 Mechanical Ventilator 100 109/58 08/05/16 17:55 112 34 111/63 86 Mechanical Ventilator 100 08/05/16 17:51 60 08/05/16 17:40 111 34 125/66 87 Mechanical Ventilator 100 08/05/16 17:33 120 08/05/16 17:30 110 34 147/73 87 Mechanical Ventilator 100 08/05/16 17:25 110 34 128/67 84 Mechanical Ventilator 100 08/05/16 17:10 111 34 107/54 87 Mechanical Ventilator 60 08/05/16 17:00 113 34 64/35 88 Mechanical Ventilator 60 08/05/16 16:55 100 34 90/46 87 Mechanical Ventilator 60 08/05/16 16:00 37.8 112 34 127/79 93 Mechanical Ventilator 60 107/57 08/05/16 16:00 Mechanical Ventilator 60 08/05/16 16:00 60 08/05/16 14:30 60 08/05/16 14:00 95 34 127/67 89 Mechanical Ventilator 60 101/57 08/05/16 12:00 Mechanical Ventilator 60 08/05/16 12:00 37.4 94 34 136/74 93 Mechanical Ventilator 60 113/58 08/05/16 12:00 60 General Appearance: no apparent distress (sedated on ventilator), + cachetic Neck: no JVD, no carotid bruits Respiratory/Chest: + decreased breath sounds (R>L), + crackles (bilaterally in the bases, R>L) Cardiovascular: regular rate, rhythm, no JVD, no murmur Abdomen/GI: normal bowel sounds Extremities/Musculoskelatal: no pedal edema Neurologic/Psych: + pertinent finding (patient sedated on ventilator) Ventilator settings: Patient O2 sat 100% on ventilator. FIO2 80%, PEEP 14, tidal volume 400ml Diagnostics Laboratory Results Results Past 24 Hours Test 08/05/16 12:16 08/05/16 12:19 08/05/16 13:19 08/05/16 13:46 Range/Units Lactic Acid Level 6.3 0.4-2.0 mmol/L Bedside Glucose (other) 178 196 70-99 mg/dl Blood Gas Sample Site Art Line Bedside Blood Gas pH (LAB) 7.36 7.35-7.45 Bedside Blood Gas pCO2 (LAB) 38 35-46 mmHg Bedside Blood Gas pO2 (LAB) 55 80-95 mmHg Bedside Blood Gas HCO3 (LAB) 21 19-24 meq/L Bedside Blood Gas Total CO2 22 24-31 mEq/l Bedside Blood Gas Base Excess (LAB) -4.0 -9-1.8 meq/L Bedside Blood Gas O2 Saturation 86.0 90-95 % Bennie Test NA Oxygen Delivery Device Ventilator Bedside Oxygen Rate (breaths/min) 34 Blood Gas Minute Ventilation 13.4 Bedside FiO2 60 % Blood Gas Tidal Volume 420 Blood Gas PEEP 10 Test 08/05/16 14:45 08/05/16 15:28 08/05/16 16:18 08/05/16 17:18 Range/Units Bedside Glucose (other) 147 132 70-99 mg/dl Blood Gas Sample Site Art Line Bedside Blood Gas pH (LAB) 7.35 7.35-7.45 Bedside Blood Gas pCO2 (LAB) 42 35-46 mmHg Bedside Blood Gas pO2 (LAB) 57 80-95 mmHg Bedside Blood Gas HCO3 (LAB) 23 19-24 meq/L Bedside Blood Gas Total CO2 24 24-31 mEq/l Bedside Blood Gas Base Excess (LAB) -3.0 -9-1.8 meq/L Bedside Blood Gas O2 Saturation 86.0 90-95 % Bennie Test NA Oxygen Delivery Device Ventilator Bedside Oxygen Rate (breaths/min) 34 Blood Gas Minute Ventilation 13.2 Bedside FiO2 60 % Blood Gas Tidal Volume 420 Blood Gas PEEP 12 White Blood Count 32.81 4.8-10.8 K/uL Red Blood Count 4.23 4.2-5.4 M/uL Hemoglobin 12.9 12.0-16.0 g/dL Hematocrit 37.0 37-47 % Mean Corpuscular Volume 87.5 80-100 fL Mean Corpuscular Hemoglobin 30.5 25-34 pg Mean Corpuscular Hemoglobin Concent 34.9 32-36 g/dl Platelet Count 169 130-400 K/uL Mean Platelet Volume 11.0 7.4-10.4 fL RDW Standard Deviation 46.5 36.4-46.3 fL RDW Coefficient of Variation 14.6 11.5-14.5 % Nucleated RBC Absolute Count (auto) 0.17 0-0 K/uL Neutrophils % (Manual) 96.6 % Lymphocytes % (Manual) 3.4 % Nucleated Red Blood Cells % 0.5 % Neutrophils # (Manual) 31.69 1.4-6.5 K/uL Total Absolute Neutrophils 31.69 1.4-6.5 K/uL Lymphocytes # (Manual) 1.12 1.2-3.4 K/uL Total Absolute Lymphocytes 1.12 1.2-3.4 K/uL Toxic Granulation 1+ Dohle Bodies 1+ Platelet Estimate NORMAL Echinocytes 1+ Sodium Level 137 136-145 mmol/L Potassium Level 3.9 3.5-5.1 mmol/L Chloride Level 102 98-107 mmol/L Carbon Dioxide Level 23 21-32 mmol/L Anion Gap 12.0 3-11 mmol/L Blood Urea Nitrogen 40 7-18 mg/dl Creatinine 0.91 0.60-1.20 mg/dl Est Creatinine Clear Calc Drug Dose 51.0 ml/min Estimated GFR () 73.6 Estimated GFR (Non- 63.5 BUN/Creatinine Ratio 43.7 10-20 Random Glucose 152 70-99 mg/dl Lactic Acid Level 5.9 0.4-2.0 mmol/L Calcium Level 7.0 8.5-10.1 mg/dl Phosphorus Level 3.1 2.5-4.9 mg/dl Magnesium Level 2.4 1.8-2.4 mg/dl Total Bilirubin 0.8 0.2-1 mg/dl Aspartate Amino Transf (AST/SGOT) 77 15-37 U/L Alanine Aminotransferase (ALT/SGPT) 40 12-78 U/L Alkaline Phosphatase 140 45-117 U/L Total Creatine Kinase 24 26-192 U/L Creatine Kinase MB 0.7 0.5-3.6 ng/ml Creatine Kinase MB Ratio 2.9 0-3.0 Troponin I 0.021 0-0.045 ng/ml Total Protein 5.2 6.4-8.2 gm/dl Albumin 1.3 3.4-5.0 gm/dl Globulin 3.9 2.5-4.0 gm/dl Albumin/Globulin Ratio 0.3 0.9-2 Test 08/05/16 17:22 08/05/16 17:35 08/05/16 18:33 08/05/16 19:30 Range/Units Bedside Glucose (other) 150 147 70-99 mg/dl Blood Gas Sample Site Art Line Bedside Blood Gas pH (LAB) 7.30 7.35-7.45 Bedside Blood Gas pCO2 (LAB) 48 35-46 mmHg Bedside Blood Gas pO2 (LAB) 64 80-95 mmHg Bedside Blood Gas HCO3 (LAB) 23 19-24 meq/L Bedside Blood Gas Total CO2 25 24-31 mEq/l Bedside Blood Gas Base Excess (LAB) -3.0 -9-1.8 meq/L Bedside Blood Gas O2 Saturation 88.0 90-95 % Bennie Test NA Oxygen Delivery Device Ventilator Bedside Oxygen Rate (breaths/min) 34 Blood Gas Minute Ventilation 13.4 Bedside FiO2 100 % Blood Gas Tidal Volume 420 Blood Gas PEEP 15 Influenza Type A Antigen Neg for Influ A NEG Influenza Type B Antigen Neg for Influ B NEG Test 08/05/16 19:42 08/05/16 20:18 08/05/16 20:42 08/05/16 20:48 Range/Units Bedside Glucose (other) 152 136 70-99 mg/dl Blood Gas Sample Site Art Line Bedside Blood Gas pH (LAB) 7.30 7.35-7.45 Bedside Blood Gas pCO2 (LAB) 48 35-46 mmHg Bedside Blood Gas pO2 (LAB) 94 80-95 mmHg Bedside Blood Gas HCO3 (LAB) 23 19-24 meq/L Bedside Blood Gas Total CO2 25 24-31 mEq/l Bedside Blood Gas Base Excess (LAB) -3.0 -9-1.8 meq/L Bedside Blood Gas O2 Saturation 96.0 90-95 % Bennie Test NA Oxygen Delivery Device Ventilator Bedside Oxygen Rate (breaths/min) 34 Blood Gas Minute Ventilation 12.7 Bedside FiO2 100 % Blood Gas Tidal Volume 400 Blood Gas PEEP 18 Ionized Calcium 0.96 1.12-1.32 mmol/l Test 08/05/16 21:39 08/05/16 22:47 08/06/16 00:04 08/06/16 00:42 Range/Units Bedside Glucose (other) 123 159 127 70-99 mg/dl Blood Gas Sample Site Art Line Bedside Blood Gas pH (LAB) 7.34 7.35-7.45 Bedside Blood Gas pCO2 (LAB) 45 35-46 mmHg Bedside Blood Gas pO2 (LAB) 88 80-95 mmHg Bedside Blood Gas HCO3 (LAB) 24 19-24 meq/L Bedside Blood Gas Total CO2 25 24-31 mEq/l Bedside Blood Gas Base Excess (LAB) -2.0 -9-1.8 meq/L Bedside Blood Gas O2 Saturation 96.0 90-95 % Bennie Test NA Oxygen Delivery Device Ventilator Bedside Oxygen Rate (breaths/min) 34 Blood Gas Minute Ventilation 12.8 Bedside FiO2 90 % Blood Gas Tidal Volume 400 Blood Gas PEEP 18 Test 08/06/16 01:55 08/06/16 02:26 08/06/16 03:59 08/06/16 04:14 Range/Units Bedside Glucose (other) 106 166 145 70-99 mg/dl Blood Gas Sample Site Art Line Bedside Blood Gas pH (LAB) 7.33 7.35-7.45 Bedside Blood Gas pCO2 (LAB) 43 35-46 mmHg Bedside Blood Gas pO2 (LAB) 87 80-95 mmHg Bedside Blood Gas HCO3 (LAB) 23 19-24 meq/L Bedside Blood Gas Total CO2 24 24-31 mEq/l Bedside Blood Gas Base Excess (LAB) -3.0 -9-1.8 meq/L Bedside Blood Gas O2 Saturation 96.0 90-95 % Bennie Test NA Oxygen Delivery Device Ventilator Bedside Oxygen Rate (breaths/min) 34 Blood Gas Minute Ventilation 12.8 Bedside FiO2 90 % Blood Gas Tidal Volume 400 Blood Gas PEEP 16 Test 08/06/16 04:53 08/06/16 05:43 08/06/16 05:47 08/06/16 07:58 Range/Units Bedside Glucose (other) 149 164 70-99 mg/dl White Blood Count 28.99 4.8-10.8 K/uL Red Blood Count 3.54 4.2-5.4 M/uL Hemoglobin 10.7 12.0-16.0 g/dL Hematocrit 31.0 37-47 % Mean Corpuscular Volume 87.6 80-100 fL Mean Corpuscular Hemoglobin 30.2 25-34 pg Mean Corpuscular Hemoglobin Concent 34.5 32-36 g/dl Platelet Count 115 130-400 K/uL Mean Platelet Volume 11.3 7.4-10.4 fL RDW Standard Deviation 47.4 36.4-46.3 fL RDW Coefficient of Variation 14.7 11.5-14.5 % Nucleated RBC Absolute Count (auto) 0.06 0-0 K/uL Neutrophils % (Manual) 92.9 % Lymphocytes % (Manual) 5.3 % Basophils % (Manual) 0.9 % Myelocytes % 0.9 % Nucleated Red Blood Cells % 0.2 % Neutrophils # (Manual) 26.93 1.4-6.5 K/uL Total Absolute Neutrophils 26.93 1.4-6.5 K/uL Lymphocytes # (Manual) 1.54 1.2-3.4 K/uL Total Absolute Lymphocytes 1.54 1.2-3.4 K/uL Basophils # (Manual) 0.26 0-0.2 K/uL Myelocytes # 0.26 0-0 K/uL Toxic Granulation 3+ Platelet Estimate DECREASED Echinocytes 2+ Sodium Level 136 136-145 mmol/L Potassium Level 4.0 3.5-5.1 mmol/L Chloride Level 100 98-107 mmol/L Carbon Dioxide Level 24 21-32 mmol/L Anion Gap 12.0 3-11 mmol/L Blood Urea Nitrogen 44 7-18 mg/dl Creatinine 1.00 0.60-1.20 mg/dl Est Creatinine Clear Calc Drug Dose 46.4 ml/min Estimated GFR () 65.6 Estimated GFR (Non- 56.6 BUN/Creatinine Ratio 43.6 10-20 Random Glucose 163 70-99 mg/dl Lactic Acid Level 5.6 0.4-2.0 mmol/L Calcium Level 6.7 8.5-10.1 mg/dl Ionized Calcium 0.92 1.12-1.32 mmol/l Phosphorus Level 3.3 2.5-4.9 mg/dl Magnesium Level 3.0 1.8-2.4 mg/dl Total Bilirubin 0.7 0.2-1 mg/dl Aspartate Amino Transf (AST/SGOT) 54 15-37 U/L Alanine Aminotransferase (ALT/SGPT) 29 12-78 U/L Alkaline Phosphatase 121 45-117 U/L Total Protein 4.4 6.4-8.2 gm/dl Albumin 1.1 3.4-5.0 gm/dl Globulin 3.3 2.5-4.0 gm/dl Albumin/Globulin Ratio 0.3 0.9-2 Procalcitonin 24.50 0-0.5 ng/mL Blood Gas Sample Site Art Line Bedside Blood Gas pH (LAB) 7.37 7.35-7.45 Bedside Blood Gas pCO2 (LAB) 40 35-46 mmHg Bedside Blood Gas pO2 (LAB) 67 80-95 mmHg Bedside Blood Gas HCO3 (LAB) 24 19-24 meq/L Bedside Blood Gas Total CO2 25 24-31 mEq/l Bedside Blood Gas Base Excess (LAB) -2.0 -9-1.8 meq/L Bedside Blood Gas O2 Saturation 93.0 90-95 % Bennie Test NA Oxygen Delivery Device Ventilator Bedside Oxygen Rate (breaths/min) 34 Blood Gas Minute Ventilation 12.7 Bedside FiO2 65 % Blood Gas Tidal Volume 400 Blood Gas PEEP 14 Test 08/06/16 08:03 08/06/16 10:18 08/06/16 10:26 Range/Units Bedside Glucose (other) 147 142 70-99 mg/dl Impression Assessment and Plan ASSESSMENT 71 year old female with PMH of dyslipidemia, diabetes mellitus type 1, and Graves disease who presented to the ED on 08/04 with 5 days of progressive shortness of breath, cough, chest pain, weakness, and decreased appetite admitted for possible pneumonia, currently on ventilator. Bronchoscopy completed on 08/04 to rule out possible malignancy vs infectious cause. Bronchial washings positive for streptococcus pneumnae and xray suggestive of right mid/lower lobe pneumonia.Patient's episode of hypotension, tachycardia, leukocytosis (WBC 29.9K) and positive blood cultures for streptococcus pneumoniae also suggestive of pneumonia with sepsis. PLAN 1) pneumonia 2) Diabetes type 1 -Patient on Humulin NPH bid and regular qAM at home. Currently on Humulin bid with ISS. Low blood sugar of 106 at 2am today so insulin was held and 25ml dextrose was given. -Check BSG AC/HS. 3) HTN -Holding lisinopril due to recent hypotension and decreased kidney function. 4) DVT -Continue Lovenox 5) Graves disease -Patient not on thyroid medication at home. -Thyroid antimicrosomal antibodies pending. Level of Care Critical Care Advanced Directives Existing Living Will: No Existing Power of Power Plant Operator Apprentice: No
--- NOTE | 2016-08-06 11:42 | SURGERY PROGRESS NOTE ---
DATE: 08/06/2016 Ms. Paige was seen today on 08/06/2016. Her A-a gradient is improving. Her airway pressures are not high. Her acidosis is resolving. Her x-ray is also improving. I discussed this with Dr. Juan Joshi as well as the ICU staff. I also had a discussion with the patient's and daughter. At this point, it appears that we are moving in the right direction. There would be no surgical intervention as her x-ray is improving.
[2016-08-06] MEDS: PANTOprazole INJ 40 MG in SYRINGE 0 ML IV SCH (11:58)
[2016-08-06 12:20] LABS: ISTAT ARTERIAL BLOOD GAS HCO3 23 meq/L (19-24); ISTAT ARTERIAL BLOOD GAS PCO2 38 mmHg (35-46); ISTAT ARTERIAL BLOOD GAS PO2 70 mmHg (80-95); ISTAT ARTERIAL BLOOD GAS pH 7.38 (7.35-7.45); ISTAT CARBON DIOXIDE 24 mEq/l (24-31); ISTAT DELIVERY SYSTEM Ventilator; ISTAT FIO2 50 %; ISTAT PEEP 14; ISTAT RATE 34; ISTAT SITE Art Line; VE 12.9; Vt 400
--- NOTE | 2016-08-06 12:22 | Pharmacy Progress Note ---
Glycemic Control: Progress Nt Date of Service Aug 06, 2016. Scope Glycemic Pharmacist consulted by Dr Huang on 08/04/16 for glycemic control and to write orders per [facility] inpatient glycemic control protocol. Objective Accuchecks BSG (last 24hrs): Test 08/05/16 17:18 08/06/16 05:43 Random Glucose 152 mg/dl (70-99) 163 mg/dl (70-99) Laboratory Data (last 24hrs) Test 08/05/16 17:18 08/06/16 05:43 Anion Gap 12.0 mmol/L 12.0 mmol/L BUN/Creatinine Ratio 43.7 43.6 Blood Urea Nitrogen 40 mg/dl 44 mg/dl Creatinine 0.91 mg/dl 1.00 mg/dl Potassium Level 3.9 mmol/L 4.0 mmol/L Sodium Level 137 mmol/L 136 mmol/L White Blood Count 32.81 K/uL 28.99 K/uL Red Blood Count 4.23 M/uL 3.54 M/uL Hemoglobin 12.9 g/dL 10.7 g/dL Hematocrit 37.0 % 31.0 % Mean Corpuscular Volume 87.5 fL 87.6 fL Mean Corpuscular Hemoglobin 30.5 pg 30.2 pg Mean Corpuscular Hemoglobin Concent 34.9 g/dl 34.5 g/dl Platelet Count 169 K/uL 115 K/uL Mean Platelet Volume 11.0 fL 11.3 fL HbA1c: Test 08/04/16 08:46 Hemoglobin A1c 8.1 % (4.5-5.6) H Recent Pertinent Medications Outpatient Anti-diabetic Regimen: * NPH per scale - reported to be 8 units BID in [employer] records * Humulin R per scale in AM - reported to be 4 units in AM in [employer] records * A1c = 8.1 % 08/04/16 The patient is currently receiving: * IV insulin infusion; goal range 140-180mg/dL Risk Factors for Insulin Resistance: * Infection: acute resp failure, PNX, strep pn bacteremia; abx changed to Levofloxacin + Rocephin today * Pressors: phenylephrine has been weaned off * IVF: IV dextrose load is reduced - still receiving Nimbex drip and ABX mixed in D5W * Diet: NPO * Mechanical Ventilation: yes Assessment & Plan ASSESSMENT: 08/05/16 * patient remains mechanically ventilated - remains on significant dose of pressor support - lactate remains elevated * there is concern for developing ARDS - pt will begin neuromuscular blockade today * multiple IV medication adjustments made today - will likely receive a significant IVF and dextrose load over the next 24 hrs * she has a h/o T1DM and given current stressors and questionable efficacy of SQ absorption, standard of care would be an IV insulin infusion - the current IV dextrose load should be sufficient to allow for IV insulin administration to prevent hypoglycemia with IV insulin administration as it will be necessary to avoid ketoacidosis. I suspect she will require very low infusion rates, 1 unit per hour or less given out-pt insulin doses. 08/06/16 * Insulin drip continues; most recent infusion rate 0.4units/hr and stable * BSGs well controlled - most BSGs in mid-100's * Given current stressors and potential for starting corticosteroids for ARDS in the near future, would recommend continuing w/ insulin drip * If BSGs begin to fall on insulin drip, we may need to add dextrose infusion to maintain BSGs at goal w/ continued insulin administration to avoid ketoacidosis in this Type 1 diabetic PLAN FOR INPATIENT GLYCEMIC CONTROL: * Continue IV insulin infusion per moderate stress protocol * Goal Range 140 - 180 mg/dl * In the critical care setting, continuous IV insulin infusion has been shown to be the best method for achieving glycemic targets. * Please note that the plan above was derived based on current level of insulin resistance and hospital stress. These recommendations are appropriate for inpatient admission only. Plan of care upon discharge will need to be reassessed to avoid potential outpatient hypo/hyperglycemia. Thank you.
[2016-08-06] MEDS: INSULIN REGULAR 250 UNITS in SODIUM CHLORIDE 0.9% 250ML 250 ML IV SCH (12:49)
--- NOTE | 2016-08-06 13:59 | Progress Note ---
Subjective Date of Service: Aug 06, 2016. Subjective Pt evaluation today including: conversation w/ family, physical exam, chart review, lab review pt remains intubated and sedated on vent. tolerating abx. initial blood cultures and bronch culture with S.pneumo - pratt sensitive in blood. repeat blood cultures pending. She was changed to ctx and levo. also on amio. Tmax 37.8 overnight, isolated. Off of pressors. wbc increased to 32 but now 28. flu swab negative. cxr with min improvement. Problem List Medical Problems: (1) Ankle fracture, left Status: Acute (2) Dyslipidemia Status: Chronic (3) Hypoxia Status: Acute (4) Osteoporosis Nos Status: Chronic (5) Pneumonia involving right lung Status: Acute (6) Type 1 diabetes Status: Chronic Objective Vital Signs Date Time Temp Pulse Resp B/P Pulse Ox O2 Delivery O2 Flow Rate FiO2 08/06/16 12:00 86 34 117/53 100 114/40 08/06/16 12:00 37.0 08/06/16 12:00 50 08/06/16 12:00 Mechanical Ventilator 50 08/06/16 11:44 50 08/06/16 11:00 95 34 132/58 99 118/44 08/06/16 10:00 96 34 135/59 99 123/45 08/06/16 09:00 96 34 124/59 100 123/45 08/06/16 08:00 93 34 123/56 100 125/45 08/06/16 08:00 36.7 08/06/16 08:00 65 08/06/16 08:00 Mechanical Ventilator 65 08/06/16 07:50 65 08/06/16 07:30 93 34 124/58 100 126/44 08/06/16 07:00 92 34 117/56 100 128/44 08/06/16 06:00 92 34 114/39 100 80 08/06/16 05:35 80 08/06/16 04:00 Mechanical Ventilator 90 08/06/16 04:00 36.6 97 34 141/45 99 Mechanical Ventilator 90 08/06/16 04:00 90 08/06/16 03:00 97 34 104/42 100 Mechanical Ventilator 90 08/06/16 02:36 90 08/06/16 02:00 100 34 105/45 100 Mechanical Ventilator 90 08/06/16 01:00 99 34 103/45 100 Mechanical Ventilator 90 08/06/16 00:00 Mechanical Ventilator 90 08/06/16 00:00 37.3 99 34 95/36 100 Mechanical Ventilator 90 08/06/16 00:00 90 08/05/16 23:42 90 08/05/16 23:28 122 08/05/16 23:00 103 34 100/46 100 Mechanical Ventilator 90 08/05/16 22:00 105 34 120/57 100 Mechanical Ventilator 90 08/05/16 21:00 106 34 92/48 96 Mechanical Ventilator 90 08/05/16 20:35 100 08/05/16 20:00 37.4 107 34 83/46 97 Mechanical Ventilator 100 08/05/16 20:00 100 08/05/16 20:00 Mechanical Ventilator 08/05/16 18:10 106 34 112/60 89 Mechanical Ventilator 100 08/05/16 18:00 105 34 144/70 89 Mechanical Ventilator 100 109/58 08/05/16 17:55 112 34 111/63 86 Mechanical Ventilator 100 08/05/16 17:51 60 08/05/16 17:40 111 34 125/66 87 Mechanical Ventilator 100 08/05/16 17:33 120 08/05/16 17:30 110 34 147/73 87 Mechanical Ventilator 100 08/05/16 17:25 110 34 128/67 84 Mechanical Ventilator 100 08/05/16 17:10 111 34 107/54 87 Mechanical Ventilator 60 08/05/16 17:00 113 34 64/35 88 Mechanical Ventilator 60 08/05/16 16:55 100 34 90/46 87 Mechanical Ventilator 60 08/05/16 16:00 37.8 112 34 127/79 93 Mechanical Ventilator 60 107/57 08/05/16 16:00 Mechanical Ventilator 60 08/05/16 16:00 60 08/05/16 14:30 60 08/05/16 14:00 95 34 127/67 89 Mechanical Ventilator 60 101/57 Physical Exam General Appearance: + pertinent finding (sedated onvent) Neck: supple Respiratory/Chest: lungs clear, + decreased breath sounds Cardiovascular: regular rate, rhythm, no murmur Abdomen: non tender Extremities: + pedal edema, + swelling Neurologic/Psychiatric: + pertinent finding (sedated on vent) Skin: normal color Comments: ij tlc c/d/i Laboratory Results Item Value Date Time Gram Stain - Final Resulted 08/04/16 0000 Bronchial Washings Right Lower Lobe Blood Culture - Final Complete 08/04/16 0300 Blood Strep. Pneumo - Penic Suscept Blood Culture - Preliminary Resulted 08/04/16 0315 Blood Streptococcus Pneumoniae Blood Culture - Preliminary Resulted 08/05/16 0457 Blood NO GROWTH TO DATE. Blood Culture - Preliminary Resulted 08/05/16 0510 Blood NO GROWTH TO DATE. Last 24 Hours Test 08/05/16 14:45 08/05/16 15:28 08/05/16 16:18 08/05/16 17:18 Bedside Glucose (other) 147 mg/dl 132 mg/dl Blood Gas Sample Site Art Line Bedside Blood Gas pH (LAB) 7.35 Bedside Blood Gas pCO2 (LAB) 42 mmHg Bedside Blood Gas pO2 (LAB) 57 mmHg Bedside Blood Gas HCO3 (LAB) 23 meq/L Bedside Blood Gas Total CO2 24 mEq/l Bedside Blood Gas Base Excess (LAB) -3.0 meq/L Bedside Blood Gas O2 Saturation 86.0 % Bennie Test NA Oxygen Delivery Device Ventilator Bedside Oxygen Rate (breaths/min) 34 Blood Gas Minute Ventilation 13.2 Bedside FiO2 60 % Blood Gas Tidal Volume 420 Blood Gas PEEP 12 White Blood Count 32.81 K/uL Red Blood Count 4.23 M/uL Hemoglobin 12.9 g/dL Hematocrit 37.0 % Mean Corpuscular Volume 87.5 fL Mean Corpuscular Hemoglobin 30.5 pg Mean Corpuscular Hemoglobin Concent 34.9 g/dl Platelet Count 169 K/uL Mean Platelet Volume 11.0 fL RDW Standard Deviation 46.5 fL RDW Coefficient of Variation 14.6 % Nucleated RBC Absolute Count (auto) 0.17 K/uL Neutrophils % (Manual) 96.6 % Lymphocytes % (Manual) 3.4 % Nucleated Red Blood Cells % 0.5 % Neutrophils # (Manual) 31.69 K/uL Total Absolute Neutrophils 31.69 K/uL Lymphocytes # (Manual) 1.12 K/uL Total Absolute Lymphocytes 1.12 K/uL Toxic Granulation 1+ Dohle Bodies 1+ Platelet Estimate NORMAL Echinocytes 1+ Sodium Level 137 mmol/L Potassium Level 3.9 mmol/L Chloride Level 102 mmol/L Carbon Dioxide Level 23 mmol/L Anion Gap 12.0 mmol/L Blood Urea Nitrogen 40 mg/dl Creatinine 0.91 mg/dl Est Creatinine Clear Calc Drug Dose 51.0 ml/min Estimated GFR () 73.6 Estimated GFR (Non- 63.5 BUN/Creatinine Ratio 43.7 Random Glucose 152 mg/dl Lactic Acid Level 5.9 mmol/L Calcium Level 7.0 mg/dl Phosphorus Level 3.1 mg/dl Magnesium Level 2.4 mg/dl Total Bilirubin 0.8 mg/dl Aspartate Amino Transf (AST/SGOT) 77 U/L Alanine Aminotransferase (ALT/SGPT) 40 U/L Alkaline Phosphatase 140 U/L Total Creatine Kinase 24 U/L Creatine Kinase MB 0.7 ng/ml Creatine Kinase MB Ratio 2.9 Troponin I 0.021 ng/ml Total Protein 5.2 gm/dl Albumin 1.3 gm/dl Globulin 3.9 gm/dl Albumin/Globulin Ratio 0.3 Test 08/05/16 17:22 08/05/16 17:35 08/05/16 18:33 08/05/16 19:30 Bedside Glucose (other) 150 mg/dl 147 mg/dl Blood Gas Sample Site Art Line Bedside Blood Gas pH (LAB) 7.30 Bedside Blood Gas pCO2 (LAB) 48 mmHg Bedside Blood Gas pO2 (LAB) 64 mmHg Bedside Blood Gas HCO3 (LAB) 23 meq/L Bedside Blood Gas Total CO2 25 mEq/l Bedside Blood Gas Base Excess (LAB) -3.0 meq/L Bedside Blood Gas O2 Saturation 88.0 % Bennie Test NA Oxygen Delivery Device Ventilator Bedside Oxygen Rate (breaths/min) 34 Blood Gas Minute Ventilation 13.4 Bedside FiO2 100 % Blood Gas Tidal Volume 420 Blood Gas PEEP 15 Influenza Type A Antigen Neg for Influ A Influenza Type B Antigen Neg for Influ B Test 08/05/16 19:42 08/05/16 20:18 08/05/16 20:42 08/05/16 20:48 Bedside Glucose (other) 152 mg/dl 136 mg/dl Blood Gas Sample Site Art Line Bedside Blood Gas pH (LAB) 7.30 Bedside Blood Gas pCO2 (LAB) 48 mmHg Bedside Blood Gas pO2 (LAB) 94 mmHg Bedside Blood Gas HCO3 (LAB) 23 meq/L Bedside Blood Gas Total CO2 25 mEq/l Bedside Blood Gas Base Excess (LAB) -3.0 meq/L Bedside Blood Gas O2 Saturation 96.0 % Bennie Test NA Oxygen Delivery Device Ventilator Bedside Oxygen Rate (breaths/min) 34 Blood Gas Minute Ventilation 12.7 Bedside FiO2 100 % Blood Gas Tidal Volume 400 Blood Gas PEEP 18 Ionized Calcium 0.96 mmol/l Test 08/05/16 21:39 08/05/16 22:47 08/06/16 00:04 08/06/16 00:42 Bedside Glucose (other) 123 mg/dl 159 mg/dl 127 mg/dl Blood Gas Sample Site Art Line Bedside Blood Gas pH (LAB) 7.34 Bedside Blood Gas pCO2 (LAB) 45 mmHg Bedside Blood Gas pO2 (LAB) 88 mmHg Bedside Blood Gas HCO3 (LAB) 24 meq/L Bedside Blood Gas Total CO2 25 mEq/l Bedside Blood Gas Base Excess (LAB) -2.0 meq/L Bedside Blood Gas O2 Saturation 96.0 % Bennie Test NA Oxygen Delivery Device Ventilator Bedside Oxygen Rate (breaths/min) 34 Blood Gas Minute Ventilation 12.8 Bedside FiO2 90 % Blood Gas Tidal Volume 400 Blood Gas PEEP 18 Test 08/06/16 01:55 08/06/16 02:26 08/06/16 03:59 08/06/16 04:14 Bedside Glucose (other) 106 mg/dl 166 mg/dl 145 mg/dl Blood Gas Sample Site Art Line Bedside Blood Gas pH (LAB) 7.33 Bedside Blood Gas pCO2 (LAB) 43 mmHg Bedside Blood Gas pO2 (LAB) 87 mmHg Bedside Blood Gas HCO3 (LAB) 23 meq/L Bedside Blood Gas Total CO2 24 mEq/l Bedside Blood Gas Base Excess (LAB) -3.0 meq/L Bedside Blood Gas O2 Saturation 96.0 % Bennie Test NA Oxygen Delivery Device Ventilator Bedside Oxygen Rate (breaths/min) 34 Blood Gas Minute Ventilation 12.8 Bedside FiO2 90 % Blood Gas Tidal Volume 400 Blood Gas PEEP 16 Test 08/06/16 04:53 08/06/16 05:43 08/06/16 05:47 08/06/16 07:58 Bedside Glucose (other) 149 mg/dl 164 mg/dl White Blood Count 28.99 K/uL Red Blood Count 3.54 M/uL Hemoglobin 10.7 g/dL Hematocrit 31.0 % Mean Corpuscular Volume 87.6 fL Mean Corpuscular Hemoglobin 30.2 pg Mean Corpuscular Hemoglobin Concent 34.5 g/dl Platelet Count 115 K/uL Mean Platelet Volume 11.3 fL RDW Standard Deviation 47.4 fL RDW Coefficient of Variation 14.7 % Nucleated RBC Absolute Count (auto) 0.06 K/uL Neutrophils % (Manual) 92.9 % Lymphocytes % (Manual) 5.3 % Basophils % (Manual) 0.9 % Myelocytes % 0.9 % Nucleated Red Blood Cells % 0.2 % Neutrophils # (Manual) 26.93 K/uL Total Absolute Neutrophils 26.93 K/uL Lymphocytes # (Manual) 1.54 K/uL Total Absolute Lymphocytes 1.54 K/uL Basophils # (Manual) 0.26 K/uL Myelocytes # 0.26 K/uL Toxic Granulation 3+ Platelet Estimate DECREASED Echinocytes 2+ Sodium Level 136 mmol/L Potassium Level 4.0 mmol/L Chloride Level 100 mmol/L Carbon Dioxide Level 24 mmol/L Anion Gap 12.0 mmol/L Blood Urea Nitrogen 44 mg/dl Creatinine 1.00 mg/dl Est Creatinine Clear Calc Drug Dose 46.4 ml/min Estimated GFR () 65.6 Estimated GFR (Non- 56.6 BUN/Creatinine Ratio 43.6 Random Glucose 163 mg/dl Lactic Acid Level 5.6 mmol/L Calcium Level 6.7 mg/dl Ionized Calcium 0.92 mmol/l Phosphorus Level 3.3 mg/dl Magnesium Level 3.0 mg/dl Total Bilirubin 0.7 mg/dl Aspartate Amino Transf (AST/SGOT) 54 U/L Alanine Aminotransferase (ALT/SGPT) 29 U/L Alkaline Phosphatase 121 U/L Total Protein 4.4 gm/dl Albumin 1.1 gm/dl Globulin 3.3 gm/dl Albumin/Globulin Ratio 0.3 Procalcitonin 24.50 ng/mL Blood Gas Sample Site Art Line Bedside Blood Gas pH (LAB) 7.37 Bedside Blood Gas pCO2 (LAB) 40 mmHg Bedside Blood Gas pO2 (LAB) 67 mmHg Bedside Blood Gas HCO3 (LAB) 24 meq/L Bedside Blood Gas Total CO2 25 mEq/l Bedside Blood Gas Base Excess (LAB) -2.0 meq/L Bedside Blood Gas O2 Saturation 93.0 % Bennie Test NA Oxygen Delivery Device Ventilator Bedside Oxygen Rate (breaths/min) 34 Blood Gas Minute Ventilation 12.7 Bedside FiO2 65 % Blood Gas Tidal Volume 400 Blood Gas PEEP 14 Test 08/06/16 08:03 08/06/16 10:18 08/06/16 10:26 08/06/16 12:04 Bedside Glucose (other) 147 mg/dl 142 mg/dl Digoxin Level 1.0 ng/ml Heparin-PF4 Antibody Screen NEG Blood Gas Sample Site Art Line Bedside Blood Gas pH (LAB) 7.38 Bedside Blood Gas pCO2 (LAB) 38 mmHg Bedside Blood Gas pO2 (LAB) 70 mmHg Bedside Blood Gas HCO3 (LAB) 23 meq/L Bedside Blood Gas Total CO2 24 mEq/l Bedside Blood Gas Base Excess (LAB) -3.0 meq/L Bedside Blood Gas O2 Saturation 94.0 % Bennie Test NA Oxygen Delivery Device Ventilator Bedside Oxygen Rate (breaths/min) 34 Blood Gas Minute Ventilation 12.9 Bedside FiO2 50 % Blood Gas Tidal Volume 400 Blood Gas PEEP 14 Test 08/06/16 12:08 Bedside Glucose (other) 141 mg/dl Assessment and Plan (1) Sepsis due to Streptococcus pneumoniae Assessment & Plan: abx have been narrowed, await repeat blood cultures. family state repeat broch today. continue supportive measures. If she is to remain on amio would suggest d/c levo as potential for prolonged QT (2) Septic shock due to streptococcal infection (3) Pneumonia involving right lung (4) Leukocytosis Continued [facility] stay due to: multiple IV medications needed Discharge planning: uncertain
--- NOTE | 2016-08-06 14:00 | Critical Care Progress Note ---
Critical Care Progress Note Date of Service Aug 06, 2016. ICU Day ICU Day Number: [address] Joshi Subjective Patient sedated cannot obtain any history at this time Nurse did know one episode overnight, or patient rate climbed up to 140s over 50s only transiently for a few seconds, but then returned back to baseline of 100s No other episodes overnight Objective Constitutional: Vital signs as above were reviewed. Eyes: Pupils equal, round, and reactive to light. Extraocular muscles are intact. No proptosis. No photophobia. ENT: Mucous membranes are moist. Oropharynx is clear. No sinus tenderness. TMs are clear bilaterally. Endotracheal tube secure Cardiovascular: Heart with a regular rate and rhythm. Pulses are palpable and symmetric in all 4 extremities. No pedal edema appreciated. Respiratory: On mechanical ventilator. No accessory muscle use. No retractions. No increased work of breathing. Coarse breath sounds bilaterally, prominent crackles at the base of right lung field GI: Abdomen soft, nontender, nondistended. Normal active bowel sounds. No abdominal hernias appreciated. No rebound. No guarding. : No CVA tenderness appreciated. Musculoskeletal/extremities: No midline cervical or vertebral tenderness. No gross deformities. No bony tenderness. No calf swelling or tenderness. Edema bilaterally the hands Integumentary: Warm, dry, no rashes appreciated. Neurological: RASS score - 4 Lymph: No cervical lymphadenopathy appreciated. Assessment & Plan 71 year old female presents with acute shortness of breath, admitted to the ICU service for the following problems. She is currently on day 3 of her admission. - Acute Hypoxemic Respiratory Failure - ARDS; status improved from severe to moderate - Sepsis with Septic Shock - Right Lobar Pneumonia - Abnormal CXR, suspicious for possible mass - Suspected Emphysema on CXR - History of supraventricular tachycardia - History of atrial fibrillation with RVR - Grave's Disease - Protein calorie malnutrition and hypoalbuminemia History of quite concerned that her course was declining given persistent hypoxia despite high PEEP and 100% FiO2. However she is remarkably doing much better today. This morning on entry into the room I noted that we're able to bring her FiO2 down to 60%, and lower her PEEP to 14. We are very encouraged by this progress, and we'll continue to work through the ARDSnet protocol to mechanically ventilate the patient. At this time, our plan for her is as follows. NEUROLOGICAL - Deep sedation with RASS score - 4 - Sedation: - Continue Versed infusion; BIS goal < 60 - Discontinue Cisatracurium infusion CARDIAC - BP: 100 systolic/30-40 diastolic; just at goal map of 65 - Vasopressor support: Patient has been weaned off phenylephrine - IV Fluids: None presently, patient is aggressively fluid resuscitated at this time Supraventricular Tacchycardia and atrial fibrillation with RVR - SVT at 1700 yesterday, myself and Dr. Joshi were present at the bedside ; patient required cigarettes cardioversion 3 - Patient was started on an amiodarone drip - Patient given 1 dose of digoxin 250 g IV followed by 150 g IV; will check a serum digoxin level before making a decision to continue with digoxin Hypotension - Secondary to septic shock plus SVT/Afib - Patient is weaned off phenylephrine infusion ; blood pressure seems to be holding steady near map goal of 65 - No indication at this time to start maintenance fluid as patient has a positive fluid balance RESPIRATORY - RR: 33-37 SpO2: 93-100%, on 100% FiO2 - Current ventilator settings: Volume AC/tidal volume 400 mL/respiratory rate 34 / PEEP 14 /FiO2 70% We will quite concerned yesterday, as despite high PEEP at 18 and 100% FiO2, patient was still only saturating at 88%; we are reassured that she is oxygenating well at lower FiO2 Acute Hypoxic Respiratory Distress - Secondary to pneumonia and evolving severe ARDS - Patient intubated successfully at bedside - ABG consistent with metabolic acidosis - Patient is still requiring 100% FiO2; will attempt increasing PEEP today and weaning FiO2 as tolerated Severe ARDS - PaO2/FiO2 score 110 today; hard severity improved from 'severe' to ' moderate' per [place] criteria - Continues to cisatracurium infusion - Will hold off on this time on starting steroids - Per ARDSnet protocol, we will proceed with high PEEP/low FiO2 strategy Right Lobar PNA - Blood cultures are speciating strep pneumo that is pansensitive - C antibiotic coverage below - Right lung consolidation persists today on chest x-ray - Repeat bedside bronchoscopy today to assess airway patency mucous plugging Concern for Lung Neoplasm - Cardiothoracic surgery has been consulted - Bronchoscopy performed at bedside with tissue biopsies; pathology report is pending GASTROINTESTINAL - Diet: NPO, OG tube placed; off pressors; can start trickle feeds today to see how patient tolerates Impact 1.0 at 10 ml/hr - GI Prophylaxis: Continue Protonix 40 IV daily - Bowel regimen: Polyethylene glycol Shock Liver/Transaminitis - Resolving; repeat one more LFT with AM and then stop if continuing to downtrend - Supportive care at this time; avoid hepatotoxic indication Severe protein calorie malnutrition - As reflected by hypoalbuminemia - Continue thiamine 250 IV daily; day 2 RENAL//ENDOCRINE - Fluid Balance; positive 7207 ml since admission Previous 24 hours: In 5242 mL / out 750 mL / net +4492 mL Total: [place] 85495 mL / out 1600 mL / net 05896 mL Urine output: 0.49 mL per KG per hour yesterday - Cr: 1.0 - Electrolytes: NA 136, K4.0, chloride 100, bicarbonate 24, BUN 44, creatinine 1.0 Calcium 6.7, ionized calcium 0.92 Phos 3.3 Mag 3.0 - IV Fluids: No maintenance IV fluids, patient is getting additional daily fluids via multiple IV medications Type 1 Diabetes Mellitus, uncontrolled - Continue Novolin - Sliding scale coverage - BSG noted to be trending downwards; though still normal; will need to preemptively address in order to prevent hypoglycemia in the setting of critical illness - Start 25% dextrose infusion at 20 mL per hour Grave's Disease - TSH 4.4; fT4 1.04; TSI pending HEME/INFECTIOUS DISEASE - Tmax: 37.8 WBC: 28, decreased from 32 - Hb/Hct 10.7/31, slightly reduced from yesterday, though may be dilutional effect - Plt: 115; platelets are steadily decreasing - Infectious diseases been consulted; recommendations appreciated Sepsis/Septic Shock secondary to Right Lobar Pneumonia - Blood cultures speciating strep pneumo; pansensitive Will continue on with Levaquin and Rocephin, given synergistic combination ID recommends possible cessation of Levaquin due o risk of prolonged QT; will check EKG in AM to follow QT interval - Lactate improving to 5.6 today; Pro calcitonin is down to 24 - Follow twice a day lactate levels for 48 hours; check continue to follow pro-calcitonin with morning labs Acute thrombus cytopenia - HIT score 3; low probability for HIT but will send hit panel - Ultrasound lower extremities, to rule out DVT - Continue to trend daily platelets, given low likelihood of HIT will continue heparin at this time DVT Prophylaxis: Heparin 5000 s.c TID LINES/IV ACCESS - Right IJ triple lumen catheter - Right antecubital - Right radial arterial line - 20-gauge IV in left wrist CODE STATUS - Full Code - Designates to be substitute decision-maker if she cannot make decisions herself DISPOSITION - OT/PT: Will benefit from OT/PT evaluation when acute illness is resolved - Patient comes from home where she lives independently I spent time at the bedside today explaining her course of the last 24 hours with both her and her daughter and was able to answer questions. Resident Physician Supervision Note: Dr. Ortiz was resident physician during care of patient. I separately evaluated patient and did history and exam. I discussed the case with the resident and generally agree with the findings and plan. Improvement in ARDS, given protein calorie malnutrition secondary to vegan diet without significant protein intake per history obtained by her , obvious muscle wasting, BMI of 26 as well as significant few would fluid accumulation I decided not to place patient on systemic steroids given recent neuromuscular blockade. Once sensitivities of organism were obtained I will likely D escalate to combination therapy of Levaquin and Rocephin given synergist a fluoroquinolone with beta-lactam against strep pneumo. I discussed the case briefly with pulmonary as well as Dr. Jane Suero of thoracic surgery. I have personally spent 90 minutes of critical care time in the direct management of this patient. This is a life/limb threatening event. This includes time spent evaluating patient, direct bedside care, chart review, placing orders, interpretation of diagnostic studies, discussion with consultants, patient, and family members, as well as other required patient management activities. This time is exclusive of all separately billable procedures, and teaching time and separate from and in addition to any other critical care service time. Documented By: Juan Joshi DO Consults & Procedures Consultants: Infectious diseases Procedures: None today Data Medications: Current Inpatient Medications Medications (Trade) Dose Ordered Sig/Sarthak Route Start Time Stop Time Status Last Admin Dose Admin Acetaminophen (Tylenol Tab) 650 mg Q4H PRN PO 08/04/16 04:30 09/03/16 04:29 08/04/16 06:35 650 MG Al Hydrox/Mg Hydrox/Simethicone (Maalox Max Susp) 15 ml Q4H PRN PO 08/04/16 04:30 09/03/16 04:29 Magnesium Hydroxide (Milk Of Magnesia Susp) 30 ml Q12H PRN PO 08/04/16 04:30 09/03/16 04:29 Ondansetron HCl (Zofran Inj) 4 mg Q6H PRN IV 08/04/16 04:30 09/03/16 04:29 Nitroglycerin (Nitrostat Tab) 0.4 mg UD PRN SL 08/04/16 04:30 09/03/16 04:29 Polyethylene (Miralax Powder Packet) 17 gm DAILY PRN PO 08/04/16 04:30 09/03/16 04:29 Glucose (Glucose 40% Gel) 15-30 GRAMS 15 GRAMS... UD PRN PO 08/04/16 04:30 09/03/16 04:29 Glucose (Glucose Chew Tab) 4-8 Tablets 4 Tabl... UD PRN PO 08/04/16 04:30 09/03/16 04:29 Dextrose (Dextrose 50% 50ML Syringe) 25-50ML OF 50% DW IV FOR... UD PRN IV 08/04/16 04:30 09/03/16 04:29 08/06/16 02:02 25 ML Glucagon (Glucagon Inj) 1 mg UD PRN SQ 08/04/16 04:30 09/03/16 04:29 Artificial Tears (Lacri-Lube Oph Oint) 1 appln HS OPR 08/04/16 21:00 09/03/16 20:59 08/05/16 21:44 1 APPLN Lisinopril (Zestril Tab) 1.25 mg QAM PO 08/04/16 09:00 09/03/16 08:59 Future Hold Lorazepam (Ativan Tab) 0.5 mg HS PO 08/04/16 21:00 09/03/16 20:59 Future Hold Multivitamins (Multivitamin Tab) 1 tab DAILY PO 08/04/16 09:00 09/03/16 08:59 08/06/16 10:25 1 TAB Simvastatin 5 mg 5 mg HS PO 08/04/16 21:00 09/03/16 20:59 08/05/16 21:44 5 MG Levofloxacin/Prmx (Levaquin / D5W/ Premixed D5W) 150 ml @ 100 mls/hr Q48H IV 08/06/16 04:00 08/10/16 10:00 08/06/16 04:40 100 MLS/HR Levofloxacin (Consult) 1 ea UD PRN N/A 08/04/16 05:00 09/03/16 04:59 Miscellaneous Information 1 ea 1 ea UD PRN N/A 08/04/16 10:51 09/03/16 10:50 Pantoprazole Sodium/Syringe (Protonix Inj/ Syringe) 10 ml @ 5 mls/min DAILY@11 IV 08/05/16 11:00 09/04/16 10:59 08/06/16 11:58 5 MLS/MIN Heparin Sodium (Porcine) (Heparin Sq 5000 Unit/0.5ml) 5,000 unit Q8 SQ 08/04/16 22:00 09/03/16 21:59 08/06/16 05:39 5,000 UNIT Ipratropium Moodus (Atrovent Hfa Inhaler) 4 puffs Q6H INH 08/04/16 21:00 09/03/16 20:59 08/06/16 07:55 4 PUFFS Levalbuterol (Xopenex Hfa Inhaler) 4 puffs Q6H INH 08/04/16 21:00 09/03/16 20:59 08/06/16 07:55 4 PUFFS Heparin Sodium (Porcine) 5 ml 5 ml PRN PRN FLUSH 08/05/16 00:45 09/04/16 00:44 Thiamine HCl 250 mg/Sodium Chloride 27.5 ml @ 50 mls/hr Q24H IV 08/05/16 11:00 08/09/16 11:32 08/06/16 10:25 50 MLS/HR Midazolam HCl 250 ml @ 0 mls/hr Q0M PRN IV 08/05/16 09:46 09/04/16 09:45 Cisatracurium Besylate/Sodium Chloride (Nimbex INJ/Nss 100ml) 100 ml @ 0 mls/hr Q0M PRN IV 08/05/16 10:00 09/04/16 09:59 08/06/16 10:23 14.4 MLS/HR Insulin Aspart SLIDING SCALE PCHS SC 08/05/16 12:00 09/04/16 11:59 Insulin Human Regular 250 units/ Sodium Chloride 252.5 ml @ 0 mls/hr DAILY@1130 IV 08/05/16 11:30 09/04/16 11:29 08/06/16 12:49 0.4 MLS/HR Amiodarone HCL/ Dextrose 200 ml @ 16.7 mls/hr [id number] IV 08/05/16 23:39 09/04/16 23:38 08/06/16 10:24 16.7 MLS/HR Ceftriaxone Sodium/Dextrose (Rocephin Inj/ Dextrose Add-[place] 50ML) 50 ml @ 100 mls/hr Q24H IV 08/06/16 10:00 08/13/16 09:59 08/06/16 10:23 100 MLS/HR Fentanyl Citrate (Fentanyl Inj) 25 mcg Q2H PRN IV 08/06/16 09:30 08/20/16 09:29 I & O: 24-Hour Column 08/06/16 08:00 Intake Total 4393 ml Output Total 725 ml Balance 3668 ml Vital Signs: Date Time Temp Pulse Resp B/P Pulse Ox O2 Delivery O2 Flow Rate FiO2 08/06/16 12:00 86 34 117/53 100 114/40 08/06/16 12:00 37.0 08/06/16 12:00 50 08/06/16 12:00 Mechanical Ventilator 50 08/06/16 11:44 50 08/06/16 11:00 95 34 132/58 99 118/44 08/06/16 10:00 96 34 135/59 99 123/45 08/06/16 09:00 96 34 124/59 100 123/45 08/06/16 08:00 93 34 123/56 100 125/45 08/06/16 08:00 36.7 08/06/16 08:00 65 08/06/16 08:00 Mechanical Ventilator 65 08/06/16 07:50 65 08/06/16 07:30 93 34 124/58 100 126/44 08/06/16 07:00 92 34 117/56 100 128/44 08/06/16 06:00 92 34 114/39 100 80 08/06/16 05:35 80 08/06/16 04:00 Mechanical Ventilator 90 08/06/16 04:00 36.6 97 34 141/45 99 Mechanical Ventilator 90 08/06/16 04:00 90 08/06/16 03:00 97 34 104/42 100 Mechanical Ventilator 90 08/06/16 02:36 90 08/06/16 02:00 100 34 105/45 100 Mechanical Ventilator 90 08/06/16 01:00 99 34 103/45 100 Mechanical Ventilator 90 08/06/16 00:00 Mechanical Ventilator 90 08/06/16 00:00 37.3 99 34 95/36 100 Mechanical Ventilator 90 08/06/16 00:00 90 08/05/16 23:42 90 08/05/16 23:28 122 08/05/16 23:00 103 34 100/46 100 Mechanical Ventilator 90 08/05/16 22:00 105 34 120/57 100 Mechanical Ventilator 90 08/05/16 21:00 106 34 92/48 96 Mechanical Ventilator 90 08/05/16 20:35 100 08/05/16 20:00 37.4 107 34 83/46 97 Mechanical Ventilator 100 08/05/16 20:00 100 08/05/16 20:00 Mechanical Ventilator 08/05/16 18:10 106 34 112/60 89 Mechanical Ventilator 100 08/05/16 18:00 105 34 144/70 89 Mechanical Ventilator 100 109/58 08/05/16 17:55 112 34 111/63 86 Mechanical Ventilator 100 08/05/16 17:51 60 08/05/16 17:40 111 34 125/66 87 Mechanical Ventilator 100 08/05/16 17:33 120 08/05/16 17:30 110 34 147/73 87 Mechanical Ventilator 100 08/05/16 17:25 110 34 128/67 84 Mechanical Ventilator 100 08/05/16 17:10 111 34 107/54 87 Mechanical Ventilator 60 08/05/16 17:00 113 34 64/35 88 Mechanical Ventilator 60 08/05/16 16:55 100 34 90/46 87 Mechanical Ventilator 60 08/05/16 16:00 37.8 112 34 127/79 93 Mechanical Ventilator 60 107/57 08/05/16 16:00 Mechanical Ventilator 60 08/05/16 16:00 60 08/05/16 14:30 60 08/05/16 14:00 95 34 127/67 89 Mechanical Ventilator 60 101/57 Laboratory Results: Last 24 Hours Test 08/05/16 13:46 08/05/16 14:45 08/05/16 15:28 08/05/16 16:18 Blood Gas Sample Site Art Line Art Line Bedside Blood Gas pH (LAB) 7.36 7.35 Bedside Blood Gas pCO2 (LAB) 38 mmHg 42 mmHg Bedside Blood Gas pO2 (LAB) 55 mmHg 57 mmHg Bedside Blood Gas HCO3 (LAB) 21 meq/L 23 meq/L Bedside Blood Gas Total CO2 22 mEq/l 24 mEq/l Bedside Blood Gas Base Excess (LAB) -4.0 meq/L -3.0 meq/L Bedside Blood Gas O2 Saturation 86.0 % 86.0 % Bennie Test NA NA Oxygen Delivery Device Ventilator Ventilator Bedside Oxygen Rate (breaths/min) 34 34 Blood Gas Minute Ventilation 13.4 13.2 Bedside FiO2 60 % 60 % Blood Gas Tidal Volume 420 420 Blood Gas PEEP 10 12 Bedside Glucose (other) 147 mg/dl 132 mg/dl Test 08/05/16 17:18 08/05/16 17:22 08/05/16 17:35 08/05/16 18:33 White Blood Count 32.81 K/uL Red Blood Count 4.23 M/uL Hemoglobin 12.9 g/dL Hematocrit 37.0 % Mean Corpuscular Volume 87.5 fL Mean Corpuscular Hemoglobin 30.5 pg Mean Corpuscular Hemoglobin Concent 34.9 g/dl Platelet Count 169 K/uL Mean Platelet Volume 11.0 fL RDW Standard Deviation 46.5 fL RDW Coefficient of Variation 14.6 % Nucleated RBC Absolute Count (auto) 0.17 K/uL Neutrophils % (Manual) 96.6 % Lymphocytes % (Manual) 3.4 % Nucleated Red Blood Cells % 0.5 % Neutrophils # (Manual) 31.69 K/uL Total Absolute Neutrophils 31.69 K/uL Lymphocytes # (Manual) 1.12 K/uL Total Absolute Lymphocytes 1.12 K/uL Toxic Granulation 1+ Dohle Bodies 1+ Platelet Estimate NORMAL Echinocytes 1+ Sodium Level 137 mmol/L Potassium Level 3.9 mmol/L Chloride Level 102 mmol/L Carbon Dioxide Level 23 mmol/L Anion Gap 12.0 mmol/L Blood Urea Nitrogen 40 mg/dl Creatinine 0.91 mg/dl Est Creatinine Clear Calc Drug Dose 51.0 ml/min Estimated GFR () 73.6 Estimated GFR (Non- 63.5 BUN/Creatinine Ratio 43.7 Random Glucose 152 mg/dl Lactic Acid Level 5.9 mmol/L Calcium Level 7.0 mg/dl Phosphorus Level 3.1 mg/dl Magnesium Level 2.4 mg/dl Total Bilirubin 0.8 mg/dl Aspartate Amino Transf (AST/SGOT) 77 U/L Alanine Aminotransferase (ALT/SGPT) 40 U/L Alkaline Phosphatase 140 U/L Total Creatine Kinase 24 U/L Creatine Kinase MB 0.7 ng/ml Creatine Kinase MB Ratio 2.9 Troponin I 0.021 ng/ml Total Protein 5.2 gm/dl Albumin 1.3 gm/dl Globulin 3.9 gm/dl Albumin/Globulin Ratio 0.3 Bedside Glucose (other) 150 mg/dl 147 mg/dl Blood Gas Sample Site Art Line Bedside Blood Gas pH (LAB) 7.30 Bedside Blood Gas pCO2 (LAB) 48 mmHg Bedside Blood Gas pO2 (LAB) 64 mmHg Bedside Blood Gas HCO3 (LAB) 23 meq/L Bedside Blood Gas Total CO2 25 mEq/l Bedside Blood Gas Base Excess (LAB) -3.0 meq/L Bedside Blood Gas O2 Saturation 88.0 % Bennie Test NA Oxygen Delivery Device Ventilator Bedside Oxygen Rate (breaths/min) 34 Blood Gas Minute Ventilation 13.4 Bedside FiO2 100 % Blood Gas Tidal Volume 420 Blood Gas PEEP 15 Test 08/05/16 19:30 08/05/16 19:42 08/05/16 20:18 08/05/16 20:42 Influenza Type A Antigen Neg for Influ A Influenza Type B Antigen Neg for Influ B Bedside Glucose (other) 152 mg/dl Blood Gas Sample Site Art Line Bedside Blood Gas pH (LAB) 7.30 Bedside Blood Gas pCO2 (LAB) 48 mmHg Bedside Blood Gas pO2 (LAB) 94 mmHg Bedside Blood Gas HCO3 (LAB) 23 meq/L Bedside Blood Gas Total CO2 25 mEq/l Bedside Blood Gas Base Excess (LAB) -3.0 meq/L Bedside Blood Gas O2 Saturation 96.0 % Bennie Test NA Oxygen Delivery Device Ventilator Bedside Oxygen Rate (breaths/min) 34 Blood Gas Minute Ventilation 12.7 Bedside FiO2 100 % Blood Gas Tidal Volume 400 Blood Gas PEEP 18 Ionized Calcium 0.96 mmol/l Test 08/05/16 20:48 08/05/16 21:39 08/05/16 22:47 08/06/16 00:04 Bedside Glucose (other) 136 mg/dl 123 mg/dl 159 mg/dl Blood Gas Sample Site Art Line Bedside Blood Gas pH (LAB) 7.34 Bedside Blood Gas pCO2 (LAB) 45 mmHg Bedside Blood Gas pO2 (LAB) 88 mmHg Bedside Blood Gas HCO3 (LAB) 24 meq/L Bedside Blood Gas Total CO2 25 mEq/l Bedside Blood Gas Base Excess (LAB) -2.0 meq/L Bedside Blood Gas O2 Saturation 96.0 % Bennie Test NA Oxygen Delivery Device Ventilator Bedside Oxygen Rate (breaths/min) 34 Blood Gas Minute Ventilation 12.8 Bedside FiO2 90 % Blood Gas Tidal Volume 400 Blood Gas PEEP 18 Test 08/06/16 00:42 08/06/16 01:55 08/06/16 02:26 08/06/16 03:59 Bedside Glucose (other) 127 mg/dl 106 mg/dl 166 mg/dl 145 mg/dl Test 08/06/16 04:14 08/06/16 04:53 08/06/16 05:43 08/06/16 05:47 Blood Gas Sample Site Art Line Bedside Blood Gas pH (LAB) 7.33 Bedside Blood Gas pCO2 (LAB) 43 mmHg Bedside Blood Gas pO2 (LAB) 87 mmHg Bedside Blood Gas HCO3 (LAB) 23 meq/L Bedside Blood Gas Total CO2 24 mEq/l Bedside Blood Gas Base Excess (LAB) -3.0 meq/L Bedside Blood Gas O2 Saturation 96.0 % Bennie Test NA Oxygen Delivery Device Ventilator Bedside Oxygen Rate (breaths/min) 34 Blood Gas Minute Ventilation 12.8 Bedside FiO2 90 % Blood Gas Tidal Volume 400 Blood Gas PEEP 16 Bedside Glucose (other) 149 mg/dl 164 mg/dl White Blood Count 28.99 K/uL Red Blood Count 3.54 M/uL Hemoglobin 10.7 g/dL Hematocrit 31.0 % Mean Corpuscular Volume 87.6 fL Mean Corpuscular Hemoglobin 30.2 pg Mean Corpuscular Hemoglobin Concent 34.5 g/dl Platelet Count 115 K/uL Mean Platelet Volume 11.3 fL RDW Standard Deviation 47.4 fL RDW Coefficient of Variation 14.7 % Nucleated RBC Absolute Count (auto) 0.06 K/uL Neutrophils % (Manual) 92.9 % Lymphocytes % (Manual) 5.3 % Basophils % (Manual) 0.9 % Myelocytes % 0.9 % Nucleated Red Blood Cells % 0.2 % Neutrophils # (Manual) 26.93 K/uL Total Absolute Neutrophils 26.93 K/uL Lymphocytes # (Manual) 1.54 K/uL Total Absolute Lymphocytes 1.54 K/uL Basophils # (Manual) 0.26 K/uL Myelocytes # 0.26 K/uL Toxic Granulation 3+ Platelet Estimate DECREASED Echinocytes 2+ Sodium Level 136 mmol/L Potassium Level 4.0 mmol/L Chloride Level 100 mmol/L Carbon Dioxide Level 24 mmol/L Anion Gap 12.0 mmol/L Blood Urea Nitrogen 44 mg/dl Creatinine 1.00 mg/dl Est Creatinine Clear Calc Drug Dose 46.4 ml/min Estimated GFR () 65.6 Estimated GFR (Non- 56.6 BUN/Creatinine Ratio 43.6 Random Glucose 163 mg/dl Lactic Acid Level 5.6 mmol/L Calcium Level 6.7 mg/dl Ionized Calcium 0.92 mmol/l Phosphorus Level 3.3 mg/dl Magnesium Level 3.0 mg/dl Total Bilirubin 0.7 mg/dl Aspartate Amino Transf (AST/SGOT) 54 U/L Alanine Aminotransferase (ALT/SGPT) 29 U/L Alkaline Phosphatase 121 U/L Total Protein 4.4 gm/dl Albumin 1.1 gm/dl Globulin 3.3 gm/dl Albumin/Globulin Ratio 0.3 Procalcitonin 24.50 ng/mL Test 08/06/16 07:58 08/06/16 08:03 08/06/16 10:18 08/06/16 10:26 Blood Gas Sample Site Art Line Bedside Blood Gas pH (LAB) 7.37 Bedside Blood Gas pCO2 (LAB) 40 mmHg Bedside Blood Gas pO2 (LAB) 67 mmHg Bedside Blood Gas HCO3 (LAB) 24 meq/L Bedside Blood Gas Total CO2 25 mEq/l Bedside Blood Gas Base Excess (LAB) -2.0 meq/L Bedside Blood Gas O2 Saturation 93.0 % Bennie Test NA Oxygen Delivery Device Ventilator Bedside Oxygen Rate (breaths/min) 34 Blood Gas Minute Ventilation 12.7 Bedside FiO2 65 % Blood Gas Tidal Volume 400 Blood Gas PEEP 14 Bedside Glucose (other) 147 mg/dl 142 mg/dl Digoxin Level 1.0 ng/ml Heparin-PF4 Antibody Screen NEG Test 08/06/16 12:04 08/06/16 12:08 Blood Gas Sample Site Art Line Bedside Blood Gas pH (LAB) 7.38 Bedside Blood Gas pCO2 (LAB) 38 mmHg Bedside Blood Gas pO2 (LAB) 70 mmHg Bedside Blood Gas HCO3 (LAB) 23 meq/L Bedside Blood Gas Total CO2 24 mEq/l Bedside Blood Gas Base Excess (LAB) -3.0 meq/L Bedside Blood Gas O2 Saturation 94.0 % Bennie Test NA Oxygen Delivery Device Ventilator Bedside Oxygen Rate (breaths/min) 34 Blood Gas Minute Ventilation 12.9 Bedside FiO2 50 % Blood Gas Tidal Volume 400 Blood Gas PEEP 14 Bedside Glucose (other) 141 mg/dl
[2016-08-06] MEDS: STERILE WATER IV SCH (16:12)
[2016-08-06] MEDS: DEXTROSE IV SCH (16:12)
[2016-08-06 17:25] LABS: ISTAT ARTERIAL BLOOD GAS HCO3 22 meq/L (19-24); ISTAT ARTERIAL BLOOD GAS PCO2 34 mmHg (35-46); ISTAT ARTERIAL BLOOD GAS PO2 55 mmHg (80-95); ISTAT ARTERIAL BLOOD GAS pH 7.42 (7.35-7.45); ISTAT CARBON DIOXIDE 23 mEq/l (24-31); ISTAT DELIVERY SYSTEM Ventilator; ISTAT FIO2 45 %; ISTAT PEEP 10; ISTAT RATE 34; ISTAT SITE Art Line; VE 14.4; Vt 400
[2016-08-06] MEDS: FENTANYL CITRATE INJ 50 MCG/1 ML 2 ML VIAL IV PRN (19:21)
--- NOTE | 2016-08-06 19:44 | Progress Note ---
Subjective Date of Service: Aug 06, 2016. Subjective Pt evaluation today including: conversation w/ patient, physical exam, chart review, lab review, review of studies, conversation w/ oracle application consultant, review of inpatient medication list bronch was done today, cont on the vent, afebriel, Fio2 taper down, bp stable, still oliguric Problem List Medical Problems: (1) Ankle fracture, left Status: Acute (2) Dyslipidemia Status: Chronic (3) Hypoxia Status: Acute (4) Osteoporosis Nos Status: Chronic (5) Pneumonia involving right lung Status: Acute (6) Type 1 diabetes Status: Chronic Review of Systems Constitutional: + problem reported (not able to obtains) Objective Vital Signs Date Time Temp Pulse Resp B/P Pulse Ox O2 Delivery O2 Flow Rate FiO2 08/06/16 18:10 50 08/06/16 18:00 74 38 121/53 95 155/42 08/06/16 17:18 37.0 08/06/16 17:18 60 08/06/16 17:00 78 36 126/50 96 149/38 08/06/16 16:00 45 08/06/16 16:00 78 34 130/53 93 162/39 08/06/16 16:00 Mechanical Ventilator 45 08/06/16 15:25 74 34 100 145/41 08/06/16 15:10 69 32 100 131/38 08/06/16 15:00 68 31 140/57 100 149/42 08/06/16 14:55 68 34 100 157/50 08/06/16 14:40 69 34 100 130/42 08/06/16 14:20 50 08/06/16 14:00 70 34 108/51 99 126/40 08/06/16 13:00 77 34 108/49 99 120/38 08/06/16 12:00 86 34 117/53 100 114/40 08/06/16 12:00 37.0 08/06/16 12:00 50 08/06/16 12:00 Mechanical Ventilator 50 08/06/16 11:44 50 08/06/16 11:00 95 34 132/58 99 118/44 08/06/16 10:00 96 34 135/59 99 123/45 08/06/16 09:00 96 34 124/59 100 123/45 08/06/16 08:00 93 34 123/56 100 125/45 08/06/16 08:00 36.7 08/06/16 08:00 65 08/06/16 08:00 Mechanical Ventilator 65 08/06/16 07:50 65 08/06/16 07:30 93 34 124/58 100 126/44 08/06/16 07:00 92 34 117/56 100 128/44 08/06/16 06:00 92 34 114/39 100 80 08/06/16 05:35 80 08/06/16 04:00 Mechanical Ventilator 90 08/06/16 04:00 36.6 97 34 141/45 99 Mechanical Ventilator 90 08/06/16 04:00 90 08/06/16 03:00 97 34 104/42 100 Mechanical Ventilator 90 08/06/16 02:36 90 08/06/16 02:00 100 34 105/45 100 Mechanical Ventilator 90 08/06/16 01:00 99 34 103/45 100 Mechanical Ventilator 90 08/06/16 00:00 Mechanical Ventilator 90 08/06/16 00:00 37.3 99 34 95/36 100 Mechanical Ventilator 90 08/06/16 00:00 90 08/05/16 23:42 90 08/05/16 23:28 122 08/05/16 23:00 103 34 100/46 100 Mechanical Ventilator 90 08/05/16 22:00 105 34 120/57 100 Mechanical Ventilator 90 08/05/16 21:00 106 34 92/48 96 Mechanical Ventilator 90 08/05/16 20:35 100 08/05/16 20:00 37.4 107 34 83/46 97 Mechanical Ventilator 100 08/05/16 20:00 100 08/05/16 20:00 Mechanical Ventilator Physical Exam General Appearance: + thin, + pertinent finding (on the vent) Eyes: normal inspection, PERRL ENT: + pertinent finding (intubated) Neck: supple Respiratory/Chest: + decreased breath sounds, + rales Cardiovascular: regular rate, rhythm, no murmur Abdomen: normal bowel sounds, soft Extremities: normal range of motion, no pedal edema Neurologic/Psychiatric: + pertinent finding (sedated) Skin: warm/dry Laboratory Results Last 24 Hours Test 08/05/16 20:18 08/05/16 20:42 08/05/16 20:48 08/05/16 21:39 Blood Gas Sample Site Art Line Bedside Blood Gas pH (LAB) 7.30 Bedside Blood Gas pCO2 (LAB) 48 mmHg Bedside Blood Gas pO2 (LAB) 94 mmHg Bedside Blood Gas HCO3 (LAB) 23 meq/L Bedside Blood Gas Total CO2 25 mEq/l Bedside Blood Gas Base Excess (LAB) -3.0 meq/L Bedside Blood Gas O2 Saturation 96.0 % Bennie Test NA Oxygen Delivery Device Ventilator Bedside Oxygen Rate (breaths/min) 34 Blood Gas Minute Ventilation 12.7 Bedside FiO2 100 % Blood Gas Tidal Volume 400 Blood Gas PEEP 18 Ionized Calcium 0.96 mmol/l Bedside Glucose (other) 136 mg/dl 123 mg/dl Test 08/05/16 22:47 08/06/16 00:04 08/06/16 00:42 08/06/16 01:55 Bedside Glucose (other) 159 mg/dl 127 mg/dl 106 mg/dl Blood Gas Sample Site Art Line Bedside Blood Gas pH (LAB) 7.34 Bedside Blood Gas pCO2 (LAB) 45 mmHg Bedside Blood Gas pO2 (LAB) 88 mmHg Bedside Blood Gas HCO3 (LAB) 24 meq/L Bedside Blood Gas Total CO2 25 mEq/l Bedside Blood Gas Base Excess (LAB) -2.0 meq/L Bedside Blood Gas O2 Saturation 96.0 % Bennie Test NA Oxygen Delivery Device Ventilator Bedside Oxygen Rate (breaths/min) 34 Blood Gas Minute Ventilation 12.8 Bedside FiO2 90 % Blood Gas Tidal Volume 400 Blood Gas PEEP 18 Test 08/06/16 02:26 08/06/16 03:59 08/06/16 04:14 08/06/16 04:53 Bedside Glucose (other) 166 mg/dl 145 mg/dl 149 mg/dl Blood Gas Sample Site Art Line Bedside Blood Gas pH (LAB) 7.33 Bedside Blood Gas pCO2 (LAB) 43 mmHg Bedside Blood Gas pO2 (LAB) 87 mmHg Bedside Blood Gas HCO3 (LAB) 23 meq/L Bedside Blood Gas Total CO2 24 mEq/l Bedside Blood Gas Base Excess (LAB) -3.0 meq/L Bedside Blood Gas O2 Saturation 96.0 % Bennie Test NA Oxygen Delivery Device Ventilator Bedside Oxygen Rate (breaths/min) 34 Blood Gas Minute Ventilation 12.8 Bedside FiO2 90 % Blood Gas Tidal Volume 400 Blood Gas PEEP 16 Test 08/06/16 05:43 08/06/16 05:47 08/06/16 07:58 08/06/16 08:03 White Blood Count 28.99 K/uL Red Blood Count 3.54 M/uL Hemoglobin 10.7 g/dL Hematocrit 31.0 % Mean Corpuscular Volume 87.6 fL Mean Corpuscular Hemoglobin 30.2 pg Mean Corpuscular Hemoglobin Concent 34.5 g/dl Platelet Count 115 K/uL Mean Platelet Volume 11.3 fL RDW Standard Deviation 47.4 fL RDW Coefficient of Variation 14.7 % Nucleated RBC Absolute Count (auto) 0.06 K/uL Neutrophils % (Manual) 92.9 % Lymphocytes % (Manual) 5.3 % Basophils % (Manual) 0.9 % Myelocytes % 0.9 % Nucleated Red Blood Cells % 0.2 % Neutrophils # (Manual) 26.93 K/uL Total Absolute Neutrophils 26.93 K/uL Lymphocytes # (Manual) 1.54 K/uL Total Absolute Lymphocytes 1.54 K/uL Basophils # (Manual) 0.26 K/uL Myelocytes # 0.26 K/uL Toxic Granulation 3+ Platelet Estimate DECREASED Echinocytes 2+ Sodium Level 136 mmol/L Potassium Level 4.0 mmol/L Chloride Level 100 mmol/L Carbon Dioxide Level 24 mmol/L Anion Gap 12.0 mmol/L Blood Urea Nitrogen 44 mg/dl Creatinine 1.00 mg/dl Est Creatinine Clear Calc Drug Dose 46.4 ml/min Estimated GFR () 65.6 Estimated GFR (Non- 56.6 BUN/Creatinine Ratio 43.6 Random Glucose 163 mg/dl Lactic Acid Level 5.6 mmol/L Calcium Level 6.7 mg/dl Ionized Calcium 0.92 mmol/l Phosphorus Level 3.3 mg/dl Magnesium Level 3.0 mg/dl Total Bilirubin 0.7 mg/dl Aspartate Amino Transf (AST/SGOT) 54 U/L Alanine Aminotransferase (ALT/SGPT) 29 U/L Alkaline Phosphatase 121 U/L Total Protein 4.4 gm/dl Albumin 1.1 gm/dl Globulin 3.3 gm/dl Albumin/Globulin Ratio 0.3 Procalcitonin 24.50 ng/mL Bedside Glucose (other) 164 mg/dl 147 mg/dl Blood Gas Sample Site Art Line Bedside Blood Gas pH (LAB) 7.37 Bedside Blood Gas pCO2 (LAB) 40 mmHg Bedside Blood Gas pO2 (LAB) 67 mmHg Bedside Blood Gas HCO3 (LAB) 24 meq/L Bedside Blood Gas Total CO2 25 mEq/l Bedside Blood Gas Base Excess (LAB) -2.0 meq/L Bedside Blood Gas O2 Saturation 93.0 % Bennie Test NA Oxygen Delivery Device Ventilator Bedside Oxygen Rate (breaths/min) 34 Blood Gas Minute Ventilation 12.7 Bedside FiO2 65 % Blood Gas Tidal Volume 400 Blood Gas PEEP 14 Test 08/06/16 10:18 08/06/16 10:26 08/06/16 12:04 08/06/16 12:08 Digoxin Level 1.0 ng/ml Heparin-PF4 Antibody Screen NEG Bedside Glucose (other) 142 mg/dl 141 mg/dl Blood Gas Sample Site Art Line Bedside Blood Gas pH (LAB) 7.38 Bedside Blood Gas pCO2 (LAB) 38 mmHg Bedside Blood Gas pO2 (LAB) 70 mmHg Bedside Blood Gas HCO3 (LAB) 23 meq/L Bedside Blood Gas Total CO2 24 mEq/l Bedside Blood Gas Base Excess (LAB) -3.0 meq/L Bedside Blood Gas O2 Saturation 94.0 % Bennie Test NA Oxygen Delivery Device Ventilator Bedside Oxygen Rate (breaths/min) 34 Blood Gas Minute Ventilation 12.9 Bedside FiO2 50 % Blood Gas Tidal Volume 400 Blood Gas PEEP 14 Test 08/06/16 14:23 08/06/16 15:12 08/06/16 16:15 08/06/16 16:29 Bedside Glucose (other) 130 mg/dl 136 mg/dl 152 mg/dl Lactic Acid Level 6.1 mmol/L Test 08/06/16 17:05 08/06/16 17:09 08/06/16 18:24 08/06/16 19:29 Blood Gas Sample Site Art Line Bedside Blood Gas pH (LAB) 7.42 Bedside Blood Gas pCO2 (LAB) 34 mmHg Bedside Blood Gas pO2 (LAB) 55 mmHg Bedside Blood Gas HCO3 (LAB) 22 meq/L Bedside Blood Gas Total CO2 23 mEq/l Bedside Blood Gas Base Excess (LAB) -2.0 meq/L Bedside Blood Gas O2 Saturation 89.0 % Bennie Test NA Oxygen Delivery Device Ventilator Bedside Oxygen Rate (breaths/min) 34 Blood Gas Minute Ventilation 14.4 Bedside FiO2 45 % Blood Gas Tidal Volume 400 Blood Gas PEEP 10 Bedside Glucose (other) 164 mg/dl 196 mg/dl Assessment and Plan 71 year old female admitted on 08/04/2016 with acute shortness of breath, admitted to the ICU service for the following problems: - Acute Hypoxemic Respiratory Failure likely secondary to severe pneumonia sepsis and septic shock, remains critical - Severe ARDS - Sepsis with Septic Shock from pneumonia, - Right Lobar Pneumonia - asso with acute renal injury, and decreased PLT, - Abnormal CXR, suspicious for possible mass - Suspected Emphysema on CXR - History of supraventricular tachycardia - History of atrial fibrillation with RVR - Grave's Disease - Protein calorie malnutrition and hypoalbuminemia Continue ICU care, continue follow-up, GI and DVT prophylaxis ordered, Nutrition support CODE STATUS - Full Code - Designates to be substitute decision-maker if she cannot make decisions herself Continued [facility] stay due to: multiple IV medications needed Discharge planning: uncertain
[2016-08-06] MEDS: IMPACT LIQ 1000 ML BAG PO SCH (19:49)
[2016-08-06] MEDS: SIMVASTATIN 5 MG TAB PO SCH (21:25)
[2016-08-06] MEDS: ARTIFICIAL TEARS OP OINT 3.5 GM TUBE OPR SCH (21:25)
[2016-08-07] VITALS (40 sets, daily range): BP systolic 114–188; BP diastolic 40–60; PULSE 70–101; TEMP 36.7–37; O2SAT 90–99
[2016-08-07] MEDS: IPRATROPIUM BROMIDE HFA INHALER INH SCH ×3 (02:03→19:57)
[2016-08-07] MEDS: LEValbuterol HFA 15GM INHALER INH SCH ×3 (02:03→19:57)
[2016-08-07] MEDS ORDERED: VANCOMYCIN TROUGH SCH (04:30)
[2016-08-07] MEDS: DEXTROSE IV SCH (05:25)
[2016-08-07] MEDS: STERILE WATER IV SCH (05:25)
[2016-08-07] MEDS: HEPARIN SOD 5000 UNIT/0.5 ML CARP SQ SCH ×3 (05:54→21:32)
[2016-08-07 06:03] LABS: ISTAT ARTERIAL BLOOD GAS HCO3 27 meq/L (19-24); ISTAT ARTERIAL BLOOD GAS PCO2 46 mmHg (35-46); ISTAT ARTERIAL BLOOD GAS PO2 57 mmHg (80-95); ISTAT ARTERIAL BLOOD GAS pH 7.38 (7.35-7.45); ISTAT CARBON DIOXIDE 28 mEq/l (24-31); ISTAT DELIVERY SYSTEM Ventilator; ISTAT FIO2 40 %; ISTAT PEEP 16; ISTAT RATE 34; ISTAT SITE Art Line; Vt 350
[2016-08-07 06:09] LABS: HEMATOCRIT 26.6 % (37-47); MEAN CELL VOLUME 87.5 fL (80-100); MEAN CORPUSCULAR HEMOGLOBIN 30.6 pg (25-34); MEAN PLATELET VOLUME 11.8 fL (7.4-10.4); PLATELET COUNT 102 K/uL (130-400); RED BLOOD COUNT 3.04 M/uL (4.2-5.4); WHITE BLOOD COUNT 27.92 K/uL (4.8-10.8)
[2016-08-07 06:39] LABS: CALCIUM 7.1 mg/dl (8.5-10.1); CREATININE 0.89 mg/dl (0.60-1.20); MAGNESIUM 2.9 mg/dl (1.8-2.4); POTASSIUM 3.8 mmol/L (3.5-5.1)
[2016-08-07 06:48] LABS: ALB/GLOB RATIO 0.5 (0.9-2); PHOSPHORUS 2.3 mg/dl (2.5-4.9)
--- NOTE | 2016-08-07 07:24 | DIAGNOSTIC IMAGING REPORT ---
CHEST ONE VIEW PORTABLE CLINICAL HISTORY: ARDS, respiratory failure. Pneumonia. COMPARISON STUDY: 08/06/2016 FINDINGS: There is an endotracheal tube 36 mm above the giorgio. There is a nasogastric tube which passes in the stomach. There is a right internal jugular central venous catheter projected over the superior vena cava. There are extensive bilateral pulmonary airspace opacity similar to the prior study. There is a small right pleural effusion.[ IMPRESSION: No significant change. Extensive bilateral pulmonary airspace opacities. Right pleural effusion. Electronically signed by: Oz Waters M.D. 08/07/2016 7:23 AM Dictated Date/Time: 08/07/2016 7:21 AM
[2016-08-07 07:46] LABS: BASO % 0.1 %; BASO ABS # 0.03 K/uL (0-0.2); COMPLETE YES; IG% 2.6 %; LYMPH % 5.3 %; LYMPH ABS # 1.47 K/uL (1.2-3.4); MONO % 0.1 %; NEUT % 91.9 %; TOXIC GRANULATION 1+
[2016-08-07] MEDS: INSULIN ASPART 100 UNITS/ML 3 ML PEN SC SCH ×4 (07:47→21:00)
[2016-08-07] MEDS: MULTIVITAMIN TAB PO SCH (08:34)
[2016-08-07] MEDS: FENTANYL CITRATE INJ 50 MCG/1 ML 2 ML VIAL IV PRN ×3 (08:34→23:21)
[2016-08-07] MEDS: LEVOFLOXACIN / D5W 750 MG in PREMIXED IN D5W 150 ML IV SCH (08:34)
[2016-08-07] MEDS ORDERED: POTASSIUM PHOS 3 MMOL/1 ML INFUSION IV STA (09:48)
[2016-08-07] MEDS ORDERED: THIAMINE HCL 100 MG TAB PO ONE (09:52)
[2016-08-07] MEDS ORDERED: ASCORBIC ACID 500 MG TAB GT ONE (09:52)
[2016-08-07] MEDS ORDERED: ZINC SULFATE 220 MG CAP PO ONE (09:52)
[2016-08-07] MEDS ORDERED: CALCIUM GLUCONATE 10% 1,000 MG in SODIUM CHLORIDE 0.9% 50ML 50 ML IV ONE (10:15)
[2016-08-07] MEDS: PANTOprazole INJ 40 MG in SYRINGE 0 ML IV SCH (10:24)
[2016-08-07] MEDS: CEFTRIAXONE SOD INJ 1000 MG in DEXTROSE 5% 50ML IV SCH (10:24)
[2016-08-07] MEDS ORDERED: POTASSIUM PHOSPHATE INJ 21 MMOL in SODIUM CHLORIDE 0.9% 500ML 500 ML IV ONE (11:00)
--- NOTE | 2016-08-07 11:05 | SURGERY PROGRESS NOTE ---
DATE: 08/07/2016 DATE: 08/07/2016. Ms. Paige is still on the ventilator; however her oxygen requirements and her peak airway pressures have come down nicely. Her x-ray still is abnormal but I think looks a bit better. There is not enough pleural fluid for us to address with intervention on the right side. At this point, she remains quite ill with a white count of 27,920. Platelet count has also dropped from a high of 252,000 upon admission to 102,000 now. This is being addressed by the jockey valet. Her creatinine is only 0.89 today. Her BUN is 46. She is not acidotic with carbon dioxide of 28, although her lactic acid is still high at 3.5 and it has come down quite nicely. ASSESSMENT AND PLAN: Streptococcal pneumoniae pneumonia. She is still in the throes of a severe pneumonia; however, she appears to be making some headway. She is tolerating her tube feedings. At this point, should continue pushing on as we are doing.
[2016-08-07] MEDS: INSULIN REGULAR 250 UNITS in SODIUM CHLORIDE 0.9% 250ML 250 ML IV SCH (12:22)
--- NOTE | 2016-08-07 12:26 | Pharmacy Progress Note ---
Glycemic Control: Progress Nt Date of Service Aug 07, 2016. Scope Glycemic Pharmacist consulted by Dr Huang on 08/04/16 for glycemic control and to write orders per [facility] inpatient glycemic control protocol. Objective Accuchecks BSG (last 24hrs): Test 08/07/16 05:41 Random Glucose 219 mg/dl (70-99) Laboratory Data (last 24hrs) Test 08/07/16 05:41 Anion Gap 9.0 mmol/L BUN/Creatinine Ratio 52.0 Blood Urea Nitrogen 46 mg/dl Creatinine 0.89 mg/dl Potassium Level 3.8 mmol/L Sodium Level 136 mmol/L White Blood Count 27.92 K/uL Red Blood Count 3.04 M/uL Hemoglobin 9.3 g/dL Hematocrit 26.6 % Mean Corpuscular Volume 87.5 fL Mean Corpuscular Hemoglobin 30.6 pg Mean Corpuscular Hemoglobin Concent 35.0 g/dl Platelet Count 102 K/uL Mean Platelet Volume 11.8 fL Neutrophils (%) (Auto) 91.9 % Lymphocytes (%) (Auto) 5.3 % Monocytes (%) (Auto) 0.1 % Eosinophils (%) (Auto) 0.0 % Basophils (%) (Auto) 0.1 % Neutrophils # (Auto) 25.64 K/uL Lymphocytes # (Auto) 1.47 K/uL Monocytes # (Auto) 0.04 K/uL Eosinophils # (Auto) 0.01 K/uL Basophils # (Auto) 0.03 K/uL HbA1c: Test 08/04/16 08:46 Hemoglobin A1c 8.1 % (4.5-5.6) H Recent Pertinent Medications Outpatient Anti-diabetic Regimen: * NPH per scale - reported to be 8 units BID in [facility] records * Humulin R per scale in AM - reported to be 4 units in AM in [facility] records * A1c = 8.1 % 08/04/16 The patient is currently receiving: * IV insulin infusion; goal range 140-180mg/dL Risk Factors for Insulin Resistance: * Infection: acute resp failure, PNX, strep pn bacteremia; abx changed to Levofloxacin + Rocephin yesterday - likely needs 14 days abx * Pressors: phenylephrine remains off * IVF: Dextrose 25% infusion @20cc/hr started yesterday as insulin infusion rates and BSGs falling with reduced IV dextrose load --> this is now d/c'd * Diet: Impact TF's started last evening @10cc/hr and then advanced to 25cc/hr this AM; will be titrated slowly to goal of 50cc/hr * Mechanical Ventilation: yes Assessment & Plan ASSESSMENT: 08/05/16 * patient remains mechanically ventilated - remains on significant dose of pressor support - lactate remains elevated * there is concern for developing ARDS - pt will begin neuromuscular blockade today * multiple IV medication adjustments made today - will likely receive a significant IVF and dextrose load over the next 24 hrs * she has a h/o T1DM and given current stressors and questionable efficacy of SQ absorption, standard of care would be an IV insulin infusion - the current IV dextrose load should be sufficient to allow for IV insulin administration to prevent hypoglycemia with IV insulin administration as it will be necessary to avoid ketoacidosis. I suspect she will require very low infusion rates, 1 unit per hour or less given out-pt insulin doses. 08/06/16 * Insulin drip continues; most recent infusion rate 0.4units/hr and stable * BSGs well controlled - most BSGs in mid-100's * Given current stressors and potential for starting corticosteroids for ARDS in the near future, would recommend continuing w/ insulin drip * If BSGs begin to fall on insulin drip, we may need to add dextrose infusion to maintain BSGs at goal w/ continued insulin administration to avoid ketoacidosis in this Type 1 diabetic 08/07/16 * Yesterday afternoon BSGs began to fall below goal range and insulin infusion was being titrated further and further down. There was concern that the insulin calc would have the RN hold the infusion due to the falling BSGs. As a result, D25% infusion was started at a low rate to keep BSGs elevated enough to continue IV insulin administration while minimizing fluid load. This was successful. * However last evening enteral feeds were started, and I believe the combo of enteral feeds + IV D25% led to mild hyperglycemia. This AM the tube feeds were advanced, so IV D25% was d/c'd. * IV insulin drip remains standard of care for this critically ill patient who is significantly volume overloaded and edematous. SQ may be considered when the patient's fluid status improves and extubated. PLAN FOR INPATIENT GLYCEMIC CONTROL: * Continue IV insulin infusion per moderate stress protocol * Goal Range 140 - 180 mg/dl * In the critical care setting, continuous IV insulin infusion has been shown to be the best method for achieving glycemic targets. * Please note that the plan above was derived based on current level of insulin resistance and hospital stress. These recommendations are appropriate for inpatient admission only. Plan of care upon discharge will need to be reassessed to avoid potential outpatient hypo/hyperglycemia. Thank you.
[2016-08-07 14:53] LABS: ISTAT ARTERIAL BLOOD GAS HCO3 31 meq/L (19-24); ISTAT ARTERIAL BLOOD GAS PCO2 59 mmHg (35-46); ISTAT ARTERIAL BLOOD GAS PO2 65 mmHg (80-95); ISTAT ARTERIAL BLOOD GAS pH 7.33 (7.35-7.45); ISTAT CARBON DIOXIDE 33 mEq/l (24-31); ISTAT DELIVERY SYSTEM Ventilator; ISTAT FIO2 40 %; ISTAT PEEP 16; ISTAT RATE 34; ISTAT SITE Art Line; VE 11.1; Vt 270
--- NOTE | 2016-08-07 15:13 | Progress Note ---
Subjective Date of Service: Aug 07, 2016. Subjective Pt evaluation today including: physical exam, chart review, lab review pt remains sedated on vent. afebrile overnight. repeat blood cultures negative. bronch and initial blood cultures with S. pneumo. tolerating abx remains on amio. off of pressors. wbc trending down, 27 today. repeat bronch cultures with nml brynn. Problem List Medical Problems: (1) Ankle fracture, left Status: Acute (2) Dyslipidemia Status: Chronic (3) Hypoxia Status: Acute (4) Osteoporosis Nos Status: Chronic (5) Pneumonia involving right lung Status: Acute (6) Type 1 diabetes Status: Chronic Objective Vital Signs Date Time Temp Pulse Resp B/P Pulse Ox O2 Delivery O2 Flow Rate FiO2 08/07/16 14:10 93 35 181/45 90 131/58 08/07/16 12:00 96 Mechanical Ventilator 40 08/07/16 12:00 36.9 82 37 188/46 96 Mechanical Ventilator 40 123/57 08/07/16 12:00 40 08/07/16 11:55 84 34 180/44 97 08/07/16 10:20 50 08/07/16 10:00 84 44 187/47 94 123/55 08/07/16 09:10 81 38 167/46 94 116/52 08/07/16 08:05 36.7 81 35 185/49 96 50 114/55 08/07/16 08:00 50 08/07/16 08:00 96 Mechanical Ventilator 50 08/07/16 07:08 50 08/07/16 06:15 77 37 99 160/45 08/07/16 06:00 76 36 116/60 97 157/44 08/07/16 05:56 50 08/07/16 05:45 77 37 94 165/43 08/07/16 05:30 77 36 160/40 93 08/07/16 05:30 77 36 93 160/40 08/07/16 05:30 77 36 93 160/40 08/07/16 05:21 40 08/07/16 05:15 75 38 90 175/42 08/07/16 05:15 75 38 175/42 90 08/07/16 05:00 76 34 174/45 95 08/07/16 05:00 76 34 134/59 95 174/45 08/07/16 04:45 75 34 96 171/45 08/07/16 04:45 75 34 171/45 96 08/07/16 04:30 73 34 167/45 96 08/07/16 04:30 73 34 96 167/45 08/07/16 04:15 73 34 97 170/48 08/07/16 04:15 73 34 170/48 97 08/07/16 04:00 36.9 73 34 153/42 97 08/07/16 04:00 50 08/07/16 04:00 73 34 120/54 97 153/42 08/07/16 04:00 95 Mechanical Ventilator 50 08/07/16 03:45 70 34 96 153/43 08/07/16 03:45 70 34 153/43 96 08/07/16 03:30 71 34 95 147/43 08/07/16 03:15 71 39 95 140/42 08/07/16 03:00 72 36 118/53 96 141/41 08/07/16 02:45 73 37 94 149/42 08/07/16 02:30 73 36 97 142/41 08/07/16 02:24 40 08/07/16 02:15 73 34 99 147/42 08/07/16 02:15 73 34 99 147/42 08/07/16 02:04 50 08/07/16 02:00 73 35 129/55 98 147/41 08/07/16 02:00 73 35 147/41 98 08/07/16 01:45 75 37 97 156/43 08/07/16 01:30 75 36 97 151/42 08/07/16 01:15 75 35 97 144/41 08/07/16 01:00 76 35 120/54 97 144/41 08/07/16 00:45 76 35 97 145/41 08/07/16 00:30 76 35 98 146/43 08/07/16 00:30 76 35 98 146/43 08/07/16 00:15 76 35 98 155/42 08/07/16 00:08 50 08/07/16 00:08 95 Mechanical Ventilator 50 08/07/16 00:00 37.0 75 34 153/41 98 08/07/16 00:00 75 34 120/55 98 153/41 08/06/16 23:45 75 35 97 155/42 08/06/16 23:30 75 35 97 160/43 08/06/16 23:15 75 36 97 157/42 08/06/16 23:11 50 08/06/16 23:00 74 34 125/54 97 149/39 08/06/16 22:45 76 35 97 155/42 08/06/16 22:30 76 37 97 158/42 08/06/16 22:30 76 37 97 158/42 08/06/16 22:21 75 35 123/55 97 152/38 08/06/16 22:15 76 35 97 145/40 08/06/16 22:00 76 36 150/40 98 08/06/16 22:00 76 36 123/55 98 150/40 08/06/16 21:45 77 35 98 155/41 08/06/16 21:30 79 41 97 165/43 08/06/16 21:15 78 34 98 156/39 08/06/16 21:00 79 35 129/58 98 164/41 08/06/16 20:45 78 37 98 161/41 08/06/16 20:30 79 37 98 165/41 08/06/16 20:15 79 36 98 159/42 08/06/16 20:00 50 08/06/16 20:00 95 Mechanical Ventilator 50 08/06/16 20:00 36.7 79 38 126/57 98 Mechanical Ventilator 50 08/06/16 20:00 80 40 126/57 97 163/43 08/06/16 20:00 50 08/06/16 19:32 79 36 125/55 96 162/43 08/06/16 19:15 80 41 132/59 94 169/46 08/06/16 19:00 77 38 127/55 95 167/44 08/06/16 18:10 50 08/06/16 18:00 74 38 121/53 95 155/42 08/06/16 17:18 37.0 08/06/16 17:18 60 08/06/16 17:00 78 36 126/50 96 149/38 08/06/16 16:00 45 08/06/16 16:00 78 34 130/53 93 162/39 08/06/16 16:00 Mechanical Ventilator 45 08/06/16 15:25 74 34 100 145/41 Physical Exam General Appearance: + pertinent finding (sedated on vent) Neck: supple Respiratory/Chest: lungs clear, + decreased breath sounds Cardiovascular: regular rate, rhythm Abdomen: soft Extremities: + pedal edema, + pertinent finding Neurologic/Psychiatric: + pertinent finding (sedated on vent) Skin: normal color Laboratory Results Item Value Date Time Blood Culture - Preliminary Resulted 08/05/16 0510 Blood NO GROWTH TO DATE. Blood Culture - Preliminary Resulted 08/05/16 0457 Blood NO GROWTH TO DATE. Blood Culture - Final Complete 08/04/16 0315 Blood Strep. Pneumo - Penic Suscept Blood Culture - Final Complete 08/04/16 0300 Blood Strep. Pneumo - Penic Suscept Gram Stain - Final Complete 08/04/16 0000 Bronchial Washings Right Lower Lobe Last 24 Hours Test 08/06/16 15:12 08/06/16 16:15 08/06/16 16:29 08/06/16 17:05 Bedside Glucose (other) 136 mg/dl 152 mg/dl Lactic Acid Level 6.1 mmol/L Blood Gas Sample Site Art Line Bedside Blood Gas pH (LAB) 7.42 Bedside Blood Gas pCO2 (LAB) 34 mmHg Bedside Blood Gas pO2 (LAB) 55 mmHg Bedside Blood Gas HCO3 (LAB) 22 meq/L Bedside Blood Gas Total CO2 23 mEq/l Bedside Blood Gas Base Excess (LAB) -2.0 meq/L Bedside Blood Gas O2 Saturation 89.0 % Bennie Test NA Oxygen Delivery Device Ventilator Bedside Oxygen Rate (breaths/min) 34 Blood Gas Minute Ventilation 14.4 Bedside FiO2 45 % Blood Gas Tidal Volume 400 Blood Gas PEEP 10 Test 08/06/16 17:09 08/06/16 18:24 08/06/16 19:29 08/06/16 20:23 Bedside Glucose (other) 164 mg/dl 196 mg/dl 205 mg/dl 211 mg/dl Test 08/06/16 21:25 08/06/16 22:25 08/06/16 23:29 08/07/16 00:21 Bedside Glucose (other) 218 mg/dl 231 mg/dl 239 mg/dl 235 mg/dl Test 08/07/16 01:22 08/07/16 02:24 08/07/16 03:24 08/07/16 04:20 Bedside Glucose (other) 220 mg/dl 216 mg/dl 223 mg/dl 217 mg/dl Test 08/07/16 05:23 08/07/16 05:41 08/07/16 05:51 08/07/16 06:17 Bedside Glucose (other) 220 mg/dl 216 mg/dl White Blood Count 27.92 K/uL Red Blood Count 3.04 M/uL Hemoglobin 9.3 g/dL Hematocrit 26.6 % Mean Corpuscular Volume 87.5 fL Mean Corpuscular Hemoglobin 30.6 pg Mean Corpuscular Hemoglobin Concent 35.0 g/dl Platelet Count 102 K/uL Mean Platelet Volume 11.8 fL Neutrophils (%) (Auto) 91.9 % Lymphocytes (%) (Auto) 5.3 % Monocytes (%) (Auto) 0.1 % Eosinophils (%) (Auto) 0.0 % Basophils (%) (Auto) 0.1 % Neutrophils # (Auto) 25.64 K/uL Lymphocytes # (Auto) 1.47 K/uL Monocytes # (Auto) 0.04 K/uL Eosinophils # (Auto) 0.01 K/uL Basophils # (Auto) 0.03 K/uL RDW Standard Deviation 47.1 fL RDW Coefficient of Variation 14.7 % Immature Granulocyte % (Auto) 2.6 % Immature Granulocyte # (Auto) 0.73 K/uL Nucleated RBC Absolute Count (auto) 0.05 K/uL Nucleated Red Blood Cells % 0.2 % Toxic Granulation 1+ Sodium Level 136 mmol/L Potassium Level 3.8 mmol/L Chloride Level 99 mmol/L Carbon Dioxide Level 28 mmol/L Anion Gap 9.0 mmol/L Blood Urea Nitrogen 46 mg/dl Creatinine 0.89 mg/dl Est Creatinine Clear Calc Drug Dose 57.4 ml/min Estimated GFR () 75.6 Estimated GFR (Non- 65.2 BUN/Creatinine Ratio 52.0 Random Glucose 219 mg/dl Lactic Acid Level 3.5 mmol/L Calcium Level 7.1 mg/dl Ionized Calcium 0.96 mmol/l Phosphorus Level 2.3 mg/dl Magnesium Level 2.9 mg/dl Total Bilirubin 0.8 mg/dl Aspartate Amino Transf (AST/SGOT) 44 U/L Alanine Aminotransferase (ALT/SGPT) 20 U/L Alkaline Phosphatase 158 U/L Total Protein 5.0 gm/dl Albumin 1.7 gm/dl Globulin 3.3 gm/dl Albumin/Globulin Ratio 0.5 Procalcitonin 17.23 ng/mL Blood Gas Sample Site Art Line Bedside Blood Gas pH (LAB) 7.38 Bedside Blood Gas pCO2 (LAB) 46 mmHg Bedside Blood Gas pO2 (LAB) 57 mmHg Bedside Blood Gas HCO3 (LAB) 27 meq/L Bedside Blood Gas Total CO2 28 mEq/l Bedside Blood Gas Base Excess (LAB) 2.0 meq/L Bedside Blood Gas O2 Saturation 89.0 % Bennie Test NA Oxygen Delivery Device Ventilator Bedside Oxygen Rate (breaths/min) 34 Bedside FiO2 40 % Blood Gas Tidal Volume 350 Blood Gas PEEP 16 Test 08/07/16 08:08 08/07/16 09:16 08/07/16 10:16 08/07/16 11:29 Bedside Glucose (other) 219 mg/dl 213 mg/dl 230 mg/dl 197 mg/dl Test 08/07/16 12:12 08/07/16 13:20 08/07/16 14:22 08/07/16 14:41 Bedside Glucose (other) 180 mg/dl 144 mg/dl 139 mg/dl Blood Gas Sample Site Art Line Bedside Blood Gas pH (LAB) 7.33 Bedside Blood Gas pCO2 (LAB) 59 mmHg Bedside Blood Gas pO2 (LAB) 65 mmHg Bedside Blood Gas HCO3 (LAB) 31 meq/L Bedside Blood Gas Total CO2 33 mEq/l Bedside Blood Gas Base Excess (LAB) 5.0 meq/L Bedside Blood Gas O2 Saturation 90.0 % Bennie Test NA Oxygen Delivery Device Ventilator Bedside Oxygen Rate (breaths/min) 34 Blood Gas Minute Ventilation 11.1 Bedside FiO2 40 % Blood Gas Tidal Volume 270 Blood Gas PEEP 16 Assessment and Plan (1) Sepsis due to Streptococcus pneumoniae Assessment & Plan: continue ctx, if plans to maintain on amio would consider stop levaquin. follow repeat blood cultures, negative to date. will follow. (2) Septic shock due to streptococcal infection (3) Pneumonia involving right lung (4) Leukocytosis Continued [facility] stay due to: multiple IV medications needed Discharge planning: uncertain
--- NOTE | 2016-08-07 17:13 | Progress Note ---
Subjective Date of Service: Aug 07, 2016. Subjective Continue intubated, FiO2 40, better urine output, afebrile, NG tube feeding to the goal Problem List Medical Problems: (1) Ankle fracture, left Status: Acute (2) Dyslipidemia Status: Chronic (3) Hypoxia Status: Acute (4) Osteoporosis Nos Status: Chronic (5) Pneumonia involving right lung Status: Acute (6) Type 1 diabetes Status: Chronic Review of Systems Constitutional: + problem reported (sedated not able to obtain review of system ) Objective Vital Signs Date Time Temp Pulse Resp B/P Pulse Ox O2 Delivery O2 Flow Rate FiO2 08/07/16 14:10 93 35 181/45 90 131/58 08/07/16 12:00 96 Mechanical Ventilator 40 08/07/16 12:00 36.9 82 37 188/46 96 Mechanical Ventilator 40 123/57 08/07/16 12:00 40 08/07/16 11:55 84 34 180/44 97 08/07/16 10:20 50 08/07/16 10:00 84 44 187/47 94 123/55 08/07/16 09:10 81 38 167/46 94 116/52 08/07/16 08:05 36.7 81 35 185/49 96 50 114/55 08/07/16 08:00 50 08/07/16 08:00 96 Mechanical Ventilator 50 08/07/16 07:08 50 08/07/16 06:15 77 37 99 160/45 08/07/16 06:00 76 36 116/60 97 157/44 08/07/16 05:56 50 08/07/16 05:45 77 37 94 165/43 08/07/16 05:30 77 36 160/40 93 08/07/16 05:30 77 36 93 160/40 08/07/16 05:30 77 36 93 160/40 08/07/16 05:21 40 08/07/16 05:15 75 38 90 175/42 08/07/16 05:15 75 38 175/42 90 08/07/16 05:00 76 34 174/45 95 08/07/16 05:00 76 34 134/59 95 174/45 08/07/16 04:45 75 34 96 171/45 08/07/16 04:45 75 34 171/45 96 08/07/16 04:30 73 34 167/45 96 08/07/16 04:30 73 34 96 167/45 08/07/16 04:15 73 34 97 170/48 08/07/16 04:15 73 34 170/48 97 08/07/16 04:00 36.9 73 34 153/42 97 08/07/16 04:00 50 08/07/16 04:00 73 34 120/54 97 153/42 08/07/16 04:00 95 Mechanical Ventilator 50 08/07/16 03:45 70 34 96 153/43 08/07/16 03:45 70 34 153/43 96 08/07/16 03:30 71 34 95 147/43 08/07/16 03:15 71 39 95 140/42 08/07/16 03:00 72 36 118/53 96 141/41 08/07/16 02:45 73 37 94 149/42 08/07/16 02:30 73 36 97 142/41 08/07/16 02:24 40 08/07/16 02:15 73 34 99 147/42 08/07/16 02:15 73 34 99 147/42 08/07/16 02:04 50 08/07/16 02:00 73 35 129/55 98 147/41 08/07/16 02:00 73 35 147/41 98 08/07/16 01:45 75 37 97 156/43 08/07/16 01:30 75 36 97 151/42 08/07/16 01:15 75 35 97 144/41 08/07/16 01:00 76 35 120/54 97 144/41 08/07/16 00:45 76 35 97 145/41 08/07/16 00:30 76 35 98 146/43 08/07/16 00:30 76 35 98 146/43 08/07/16 00:15 76 35 98 155/42 08/07/16 00:08 50 08/07/16 00:08 95 Mechanical Ventilator 50 08/07/16 00:00 37.0 75 34 153/41 98 08/07/16 00:00 75 34 120/55 98 153/41 08/06/16 23:45 75 35 97 155/42 08/06/16 23:30 75 35 97 160/43 08/06/16 23:15 75 36 97 157/42 08/06/16 23:11 50 08/06/16 23:00 74 34 125/54 97 149/39 08/06/16 22:45 76 35 97 155/42 08/06/16 22:30 76 37 97 158/42 08/06/16 22:30 76 37 97 158/42 08/06/16 22:21 75 35 123/55 97 152/38 08/06/16 22:15 76 35 97 145/40 08/06/16 22:00 76 36 150/40 98 08/06/16 22:00 76 36 123/55 98 150/40 08/06/16 21:45 77 35 98 155/41 08/06/16 21:30 79 41 97 165/43 08/06/16 21:15 78 34 98 156/39 08/06/16 21:00 79 35 129/58 98 164/41 08/06/16 20:45 78 37 98 161/41 08/06/16 20:30 79 37 98 165/41 08/06/16 20:15 79 36 98 159/42 08/06/16 20:00 50 08/06/16 20:00 95 Mechanical Ventilator 50 08/06/16 20:00 36.7 79 38 126/57 98 Mechanical Ventilator 50 08/06/16 20:00 80 40 126/57 97 163/43 08/06/16 20:00 50 08/06/16 19:32 79 36 125/55 96 162/43 08/06/16 19:15 80 41 132/59 94 169/46 08/06/16 19:00 77 38 127/55 95 167/44 08/06/16 18:10 50 08/06/16 18:00 74 38 121/53 95 155/42 08/06/16 17:18 37.0 08/06/16 17:18 60 Physical Exam General Appearance: + thin, + pertinent finding (intubated and sedated) Eyes: PERRL ENT: + pertinent finding (NG tube in place) Neck: supple Respiratory/Chest: + decreased breath sounds, + rales Cardiovascular: regular rate, rhythm, no edema Abdomen: normal bowel sounds, soft Extremities: + pertinent finding (1+ edema) Neurologic/Psychiatric: + pertinent finding (sedated) Skin: no rash Laboratory Results Last 24 Hours Test 08/06/16 18:24 08/06/16 19:29 08/06/16 20:23 08/06/16 21:25 Bedside Glucose (other) 196 mg/dl 205 mg/dl 211 mg/dl 218 mg/dl Test 08/06/16 22:25 08/06/16 23:29 08/07/16 00:21 08/07/16 01:22 Bedside Glucose (other) 231 mg/dl 239 mg/dl 235 mg/dl 220 mg/dl Test 08/07/16 02:24 08/07/16 03:24 08/07/16 04:20 08/07/16 05:23 Bedside Glucose (other) 216 mg/dl 223 mg/dl 217 mg/dl 220 mg/dl Test 08/07/16 05:41 08/07/16 05:51 08/07/16 06:17 08/07/16 08:08 White Blood Count 27.92 K/uL Red Blood Count 3.04 M/uL Hemoglobin 9.3 g/dL Hematocrit 26.6 % Mean Corpuscular Volume 87.5 fL Mean Corpuscular Hemoglobin 30.6 pg Mean Corpuscular Hemoglobin Concent 35.0 g/dl Platelet Count 102 K/uL Mean Platelet Volume 11.8 fL Neutrophils (%) (Auto) 91.9 % Lymphocytes (%) (Auto) 5.3 % Monocytes (%) (Auto) 0.1 % Eosinophils (%) (Auto) 0.0 % Basophils (%) (Auto) 0.1 % Neutrophils # (Auto) 25.64 K/uL Lymphocytes # (Auto) 1.47 K/uL Monocytes # (Auto) 0.04 K/uL Eosinophils # (Auto) 0.01 K/uL Basophils # (Auto) 0.03 K/uL RDW Standard Deviation 47.1 fL RDW Coefficient of Variation 14.7 % Immature Granulocyte % (Auto) 2.6 % Immature Granulocyte # (Auto) 0.73 K/uL Nucleated RBC Absolute Count (auto) 0.05 K/uL Nucleated Red Blood Cells % 0.2 % Toxic Granulation 1+ Sodium Level 136 mmol/L Potassium Level 3.8 mmol/L Chloride Level 99 mmol/L Carbon Dioxide Level 28 mmol/L Anion Gap 9.0 mmol/L Blood Urea Nitrogen 46 mg/dl Creatinine 0.89 mg/dl Est Creatinine Clear Calc Drug Dose 57.4 ml/min Estimated GFR () 75.6 Estimated GFR (Non- 65.2 BUN/Creatinine Ratio 52.0 Random Glucose 219 mg/dl Lactic Acid Level 3.5 mmol/L Calcium Level 7.1 mg/dl Ionized Calcium 0.96 mmol/l Phosphorus Level 2.3 mg/dl Magnesium Level 2.9 mg/dl Total Bilirubin 0.8 mg/dl Aspartate Amino Transf (AST/SGOT) 44 U/L Alanine Aminotransferase (ALT/SGPT) 20 U/L Alkaline Phosphatase 158 U/L Total Protein 5.0 gm/dl Albumin 1.7 gm/dl Globulin 3.3 gm/dl Albumin/Globulin Ratio 0.5 Procalcitonin 17.23 ng/mL Blood Gas Sample Site Art Line Bedside Blood Gas pH (LAB) 7.38 Bedside Blood Gas pCO2 (LAB) 46 mmHg Bedside Blood Gas pO2 (LAB) 57 mmHg Bedside Blood Gas HCO3 (LAB) 27 meq/L Bedside Blood Gas Total CO2 28 mEq/l Bedside Blood Gas Base Excess (LAB) 2.0 meq/L Bedside Blood Gas O2 Saturation 89.0 % Bennie Test NA Oxygen Delivery Device Ventilator Bedside Oxygen Rate (breaths/min) 34 Bedside FiO2 40 % Blood Gas Tidal Volume 350 Blood Gas PEEP 16 Bedside Glucose (other) 216 mg/dl 219 mg/dl Test 08/07/16 09:16 08/07/16 10:16 08/07/16 11:29 08/07/16 12:12 Bedside Glucose (other) 213 mg/dl 230 mg/dl 197 mg/dl 180 mg/dl Test 08/07/16 13:20 08/07/16 14:22 08/07/16 14:41 08/07/16 15:04 Bedside Glucose (other) 144 mg/dl 139 mg/dl 133 mg/dl Blood Gas Sample Site Art Line Bedside Blood Gas pH (LAB) 7.33 Bedside Blood Gas pCO2 (LAB) 59 mmHg Bedside Blood Gas pO2 (LAB) 65 mmHg Bedside Blood Gas HCO3 (LAB) 31 meq/L Bedside Blood Gas Total CO2 33 mEq/l Bedside Blood Gas Base Excess (LAB) 5.0 meq/L Bedside Blood Gas O2 Saturation 90.0 % Bennie Test NA Oxygen Delivery Device Ventilator Bedside Oxygen Rate (breaths/min) 34 Blood Gas Minute Ventilation 11.1 Bedside FiO2 40 % Blood Gas Tidal Volume 270 Blood Gas PEEP 16 Test 08/07/16 16:07 08/07/16 16:12 Lactic Acid Level 2.4 mmol/L Bedside Glucose (other) 123 mg/dl Assessment and Plan 71 year old female admitted on 08/04/2016 with acute shortness of breath, admitted to the ICU service for the following problems: - Acute Hypoxemic Respiratory Failure likely secondary to severe pneumonia sepsis and septic shock, Pressure support was of 2 days ago, remains critical - Severe ARDS - Sepsis with Septic Shock from pneumonia, - Right Lobar Pneumonia, on nebulizer treatment, antibiotic has been narrow down - asso with acute renal injury, renal function improving Mild decreased PLT, will follow-up - Abnormal CXR, suspicious for possible mass - Suspected Emphysema on CXR - History of supraventricular tachycardia - History of atrial fibrillation with RVR - Grave's Disease - Protein calorie malnutrition and hypoalbuminemia, continue NG tube feeding Continue ICU care, patient's medical condition mainly management by vp of customer experience strategy GI and DVT prophylaxis ordered, Nutrition support CODE STATUS - Full Code - Designates to be substitute decision-maker if she cannot make decisions herself Discussed with RN and care team Continued [facility] stay due to: multiple IV medications needed Discharge planning: uncertain
[2016-08-07 18:43] LABS: ISTAT ARTERIAL BLOOD GAS HCO3 30 meq/L (19-24); ISTAT ARTERIAL BLOOD GAS PCO2 63 mmHg (35-46); ISTAT ARTERIAL BLOOD GAS PO2 66 mmHg (80-95); ISTAT ARTERIAL BLOOD GAS pH 7.29 (7.35-7.45); ISTAT CARBON DIOXIDE 32 mEq/l (24-31); ISTAT DELIVERY SYSTEM Ventilator; ISTAT FIO2 40 %; ISTAT PEEP 16; ISTAT RATE 34; ISTAT SITE Art Line; VE 9.1; Vt 270
[2016-08-07] MEDS: ARTIFICIAL TEARS OP OINT 3.5 GM TUBE OPR SCH (21:00)
[2016-08-07] MEDS: SIMVASTATIN 5 MG TAB PO SCH (21:00)
--- NOTE | 2016-08-07 22:28 | Critical Care Progress Note ---
Critical Care Progress Note Date of Service Aug 07, 2016. ICU Day ICU Day Number: [address] Joshi Subjective Patient intubated and sedated heavily, during spontaneously and child patient had movement of upper and lower extremities. Unsafe to proceed to proceed with spontaneous breathing trial due to high PEEP values. Objective Neuro: Rasnick for Cardiovascular S1-S2 regular rate and rhythm no murmurs rubs gallops Respiratory scattered rhonchi bilaterally Abdomen: Extremely hypoactive bowel sounds, soft nondistended, no hepatosplenomegaly Uriostegui catheter present Skin cool and dry capillary refill less than 3 seconds Neuro: Moves all 4 extremities during lightening of sedation. Assessment & Plan NEUROLOGICAL - Deep sedation with RASS score - 3 - Sedation: - Continue Versed infusion Has been discontinued, lightening Versed slightly. If patient continues to improve may combine spontaneous breathing trial spontaneous awakening child tomorrow CARDIAC - BP: 100 systolic/30-40 diastolic; just at goal map of 65 - IV Fluids: None presently, patient is aggressively fluid resuscitated at this time Supraventricular Tacchycardia and atrial fibrillation with RVR Resolved Patient has maintained normal sinus rhythm, we'll discontinue amiodarone at this time given impairment of lungs, also discontinuing digoxin at this time. Hypotension Improved RESPIRATORY Acute Hypoxic Respiratory Distress -Mild improvement today transitioning to high PEEP flow FiO2 table - Had transitioned down to 270 mL's title volume patient became more hypercapnic requiring transitioned to 300 mL's title volume continue present ventilation strategy - Per [facility] protocol, we will proceed with high PEEP/low FiO2 strategy Right Lobar PNA - Blood cultures are speciating strep pneumo that is pansensitive - C antibiotic coverage below - Right lung consolidation persists today on chest x-ray Concern for Lung Neoplasm The pathology to date has been negative, we'll refrain from additional evaluation given critical illness, will need repeat chest x-ray in the distant future after resolution of ARDS and pneumonia GASTROINTESTINAL -Tolerated trickle tube feeds, increased impacted goal of 50 ML's per hour. Check physical exam later on in the day still has hypoactive bowel sounds nursing checked residual less than 200 ML's will continued to goal - GI Prophylaxis: Continue Protonix 40 IV daily - Bowel regimen: Polyethylene glycol Shock Liver/Transaminitis - Resolving; repeat one more LFT with AM and then stop if continuing to downtrend - Supportive care at this time; avoid hepatotoxic indication Severe protein calorie malnutrition - As reflected by hypoalbuminemia - Continue thiamine 250 IV daily; day 3/5 RENAL//ENDOCRINE Significant positive fluid balance, refrain from additional IV fluids and will adjust after tube feeds reach goal. Type 1 Diabetes Mellitus, uncontrolled -Continue IV insulin, observation will be erratic. - Stopped additional dextrose-containing solutions as patient not tolerating tube feeds Grave's Disease - TSH 4.4; fT4 1.04; TSI pending HEME/INFECTIOUS DISEASE PF 4 antibody screen negative we'll continue with heparin prophylaxis Sepsis/Septic Shock secondary to Right Lobar Pneumonia - Blood cultures speciating strep pneumo; pansensitive Will continue on with Levaquin and Rocephin, given synergistic combination will plan 14 day course, will follow procalcitonin for possible early discontinuation Acute thrombocytopenia Multifactorial likely bone marrow suppression and disease process DVT Prophylaxis: Heparin 5000 s.c TID LINES/IV ACCESS - Right IJ triple lumen catheter - Right antecubital - Right radial arterial line - 20-gauge IV in left wrist CODE STATUS -DO NOT RESUSCITATE in event of cardiac arrest Spent significant time updating the family today and discussing future goals of care. emphasize she was a very active person and would not want to be wheelchair-bound or a cardiopulmonary cripple. We have discussed tracheostomy should she still remained intubated, at this point he is agreeable with that plan. We've also discussed long-term care facilities that she will likely need intensive rehabilitation should she recover from this significant critical illness I have personally spent 100 minutes of critical care time in the direct management of this patient. This is a life/limb threatening event. This includes time spent evaluating patient, direct bedside care, chart review, placing orders, interpretation of diagnostic studies, discussion with consultants, patient, and family members, as well as other required patient management activities. This time is exclusive of all separately billable procedures, and teaching time and separate from and in addition to any other critical care service time. Consults & Procedures Consultants: Infectious diseases Procedures: None today Data Medications: Current Inpatient Medications Medications (Trade) Dose Ordered Sig/Sarthak Route Start Time Stop Time Status Last Admin Dose Admin Acetaminophen (Tylenol Tab) 650 mg Q4H PRN PO 08/04/16 04:30 09/03/16 04:29 08/04/16 06:35 650 MG Al Hydrox/Mg Hydrox/Simethicone (Maalox Max Susp) 15 ml Q4H PRN PO 08/04/16 04:30 09/03/16 04:29 Magnesium Hydroxide (Milk Of Magnesia Susp) 30 ml Q12H PRN PO 08/04/16 04:30 09/03/16 04:29 Ondansetron HCl (Zofran Inj) 4 mg Q6H PRN IV 08/04/16 04:30 09/03/16 04:29 Nitroglycerin (Nitrostat Tab) 0.4 mg UD PRN SL 08/04/16 04:30 09/03/16 04:29 Polyethylene (Miralax Powder Packet) 17 gm DAILY PRN PO 08/04/16 04:30 09/03/16 04:29 Glucose (Glucose 40% Gel) 15-30 GRAMS 15 GRAMS... UD PRN PO 08/04/16 04:30 09/03/16 04:29 Glucose (Glucose Chew Tab) 4-8 Tablets 4 Tabl... UD PRN PO 08/04/16 04:30 09/03/16 04:29 Dextrose (Dextrose 50% 50ML Syringe) 25-50ML OF 50% DW IV FOR... UD PRN IV 08/04/16 04:30 09/03/16 04:29 08/06/16 02:02 25 ML Glucagon (Glucagon Inj) 1 mg UD PRN SQ 08/04/16 04:30 09/03/16 04:29 Artificial Tears (Lacri-Lube Oph Oint) 1 appln HS OPR 08/04/16 21:00 09/03/16 20:59 08/07/16 21:00 1 APPLN Lisinopril (Zestril Tab) 1.25 mg QAM PO 08/04/16 09:00 09/03/16 08:59 Future Hold Lorazepam (Ativan Tab) 0.5 mg HS PO 08/04/16 21:00 09/03/16 20:59 Future Hold Multivitamins (Multivitamin Tab) 1 tab DAILY PO 08/04/16 09:00 09/03/16 08:59 08/07/16 08:34 1 TAB Simvastatin (Zocor Tab) 5 mg HS PO 08/04/16 21:00 09/03/16 20:59 08/07/16 21:00 5 MG Levofloxacin (Consult) 1 ea UD PRN N/A 08/04/16 05:00 08/19/16 23:59 Miscellaneous Information 1 ea 1 ea UD PRN N/A 08/04/16 10:51 09/03/16 10:50 Pantoprazole Sodium/Syringe (Protonix Inj/ Syringe) 10 ml @ 5 mls/min DAILY@11 IV 08/05/16 11:00 09/04/16 10:59 08/07/16 10:24 5 MLS/MIN Heparin Sodium (Porcine) (Heparin Sq 5000 Unit/0.5ml) 5,000 unit Q8 SQ 08/04/16 22:00 09/03/16 21:59 08/07/16 21:32 5,000 UNIT Ipratropium Hayden (Atrovent Hfa Inhaler) 4 puffs Q6H INH 08/04/16 21:00 09/03/16 20:59 08/07/16 19:57 4 PUFFS Levalbuterol (Xopenex Hfa Inhaler) 4 puffs Q6H INH 08/04/16 21:00 09/03/16 20:59 08/07/16 19:57 4 PUFFS Heparin Sodium (Porcine) 5 ml 5 ml PRN PRN FLUSH 08/05/16 00:45 09/04/16 00:44 Midazolam HCl (Midazolam 125MG/ 250ML D5w) 250 ml @ 0 mls/hr Q0M PRN IV 08/05/16 09:46 09/04/16 09:45 08/06/16 19:48 10 MLS/HR Insulin Aspart [facility] 08/05/16 12:00 09/04/16 11:59 Insulin Human Regular 250 units/ Sodium Chloride 252.5 ml @ 0 mls/hr DAILY@1130 IV 08/05/16 11:30 09/04/16 11:29 08/07/16 12:22 2.9 MLS/HR Amiodarone HCL/ Dextrose 200 ml @ 16.7 mls/hr [id number] IV 08/05/16 23:39 09/04/16 23:38 Future Hold 08/06/16 22:31 16.7 MLS/HR Ceftriaxone Sodium/Dextrose (Rocephin Inj/ Dextrose Add-Howell 50ML) 50 ml @ 100 mls/hr Q24H IV 08/06/16 10:00 08/19/16 23:59 08/07/16 10:24 100 MLS/HR Fentanyl Citrate (Fentanyl Inj) 25 mcg Q2H PRN IV 08/06/16 09:30 08/20/16 09:29 08/07/16 14:44 25 MCG Enteral Nutritional Formula 1000 ml 1,000 ml UD PO 08/06/16 18:45 09/05/16 18:44 08/06/16 19:49 1,000 ML Levofloxacin/Prmx (Levaquin / D5W/ Premixed D5W) 150 ml @ 100 mls/hr Q24H IV 08/07/16 09:00 08/19/16 23:59 08/07/16 08:34 100 MLS/HR Zinc Sulfate (Zinc Sulfate Cap) 220 mg QAM PO 08/08/16 09:00 09/07/16 08:59 Ascorbic Acid (Vitamin C Tab) 1,000 mg QAM GT 08/08/16 09:00 09/07/16 08:59 Thiamine HCl (Vitamin B-1 Tab) 200 mg QAM PO 08/08/16 09:00 09/07/16 08:59 I & O: 24-Hour Column 08/07/16 08:00 Intake Total 1772 ml Output Total 1050 ml Balance 722 ml Vital Signs: Date Time Temp Pulse Resp B/P Pulse Ox O2 Delivery O2 Flow Rate FiO2 08/07/16 20:08 40 08/07/16 20:00 92 Mechanical Ventilator 40 08/07/16 18:05 40 08/07/16 18:00 100 34 140/60 91 179/49 08/07/16 16:00 37.0 96 32 131/58 91 181/50 08/07/16 16:00 92 Mechanical Ventilator 40 08/07/16 16:00 40 08/07/16 14:10 40 08/07/16 14:10 93 35 181/45 90 131/58 08/07/16 12:00 96 Mechanical Ventilator 40 08/07/16 12:00 36.9 82 37 188/46 96 Mechanical Ventilator 40 123/57 08/07/16 12:00 40 08/07/16 11:55 84 34 180/44 97 08/07/16 10:20 50 08/07/16 10:00 84 44 187/47 94 123/55 08/07/16 09:10 81 38 167/46 94 116/52 08/07/16 08:05 36.7 81 35 185/49 96 50 114/55 08/07/16 08:00 50 08/07/16 08:00 96 Mechanical Ventilator 50 08/07/16 07:08 50 08/07/16 06:15 77 37 99 160/45 08/07/16 06:00 76 36 116/60 97 157/44 08/07/16 05:56 50 08/07/16 05:45 77 37 94 165/43 08/07/16 05:30 77 36 160/40 93 08/07/16 05:30 77 36 93 160/40 08/07/16 05:30 77 36 93 160/40 08/07/16 05:21 40 08/07/16 05:15 75 38 90 175/42 08/07/16 05:15 75 38 175/42 90 08/07/16 05:00 76 34 174/45 95 08/07/16 05:00 76 34 134/59 95 174/45 08/07/16 04:45 75 34 96 171/45 08/07/16 04:45 75 34 171/45 96 08/07/16 04:30 73 34 167/45 96 08/07/16 04:30 73 34 96 167/45 08/07/16 04:15 73 34 97 170/48 08/07/16 04:15 73 34 170/48 97 08/07/16 04:00 36.9 73 34 153/42 97 08/07/16 04:00 50 08/07/16 04:00 73 34 120/54 97 153/42 08/07/16 04:00 95 Mechanical Ventilator 50 08/07/16 03:45 70 34 96 153/43 08/07/16 03:45 70 34 153/43 96 08/07/16 03:30 71 34 95 147/43 08/07/16 03:15 71 39 95 140/42 08/07/16 03:00 72 36 118/53 96 141/41 08/07/16 02:45 73 37 94 149/42 08/07/16 02:30 73 36 97 142/41 08/07/16 02:24 40 08/07/16 02:15 73 34 99 147/42 08/07/16 02:15 73 34 99 147/42 08/07/16 02:04 50 08/07/16 02:00 73 35 129/55 98 147/41 08/07/16 02:00 73 35 147/41 98 08/07/16 01:45 75 37 97 156/43 08/07/16 01:30 75 36 97 151/42 08/07/16 01:15 75 35 97 144/41 08/07/16 01:00 76 35 120/54 97 144/41 08/07/16 00:45 76 35 97 145/41 08/07/16 00:30 76 35 98 146/43 08/07/16 00:30 76 35 98 146/43 08/07/16 00:15 76 35 98 155/42 08/07/16 00:08 50 08/07/16 00:08 95 Mechanical Ventilator 50 08/07/16 00:00 37.0 75 34 153/41 98 08/07/16 00:00 75 34 120/55 98 153/41 08/06/16 23:45 75 35 97 155/42 08/06/16 23:30 75 35 97 160/43 08/06/16 23:15 75 36 97 157/42 08/06/16 23:11 50 08/06/16 23:00 74 34 125/54 97 149/39 08/06/16 22:45 76 35 97 155/42 08/06/16 22:30 76 37 97 158/42 08/06/16 22:30 76 37 97 158/42 08/06/16 22:21 75 35 123/55 97 152/38 Laboratory Results: Last 24 Hours Test 08/06/16 22:25 08/06/16 23:29 08/07/16 00:21 08/07/16 01:22 Bedside Glucose (other) 231 mg/dl 239 mg/dl 235 mg/dl 220 mg/dl Test 08/07/16 02:24 08/07/16 03:24 08/07/16 04:20 08/07/16 05:23 Bedside Glucose (other) 216 mg/dl 223 mg/dl 217 mg/dl 220 mg/dl Test 08/07/16 05:41 08/07/16 05:51 08/07/16 06:08/07/16 08:08 White Blood Count 27.92 K/uL Red Blood Count 3.04 M/uL Hemoglobin 9.3 g/dL Hematocrit 26.6 % Mean Corpuscular Volume 87.5 fL Mean Corpuscular Hemoglobin 30.6 pg Mean Corpuscular Hemoglobin Concent 35.0 g/dl Platelet Count 102 K/uL Mean Platelet Volume 11.8 fL Neutrophils (%) (Auto) 91.9 % Lymphocytes (%) (Auto) 5.3 % Monocytes (%) (Auto) 0.1 % Eosinophils (%) (Auto) 0.0 % Basophils (%) (Auto) 0.1 % Neutrophils # (Auto) 25.64 K/uL Lymphocytes # (Auto) 1.47 K/uL Monocytes # (Auto) 0.04 K/uL Eosinophils # (Auto) 0.01 K/uL Basophils # (Auto) 0.03 K/uL RDW Standard Deviation 47.1 fL RDW Coefficient of Variation 14.7 % Immature Granulocyte % (Auto) 2.6 % Immature Granulocyte # (Auto) 0.73 K/uL Nucleated RBC Absolute Count (auto) 0.05 K/uL Nucleated Red Blood Cells % 0.2 % Toxic Granulation 1+ Sodium Level 136 mmol/L Potassium Level 3.8 mmol/L Chloride Level 99 mmol/L Carbon Dioxide Level 28 mmol/L Anion Gap 9.0 mmol/L Blood Urea Nitrogen 46 mg/dl Creatinine 0.89 mg/dl Est Creatinine Clear Calc Drug Dose 57.4 ml/min Estimated GFR () 75.6 Estimated GFR (Non- 65.2 BUN/Creatinine Ratio 52.0 Random Glucose 219 mg/dl Lactic Acid Level 3.5 mmol/L Calcium Level 7.1 mg/dl Ionized Calcium 0.96 mmol/l Phosphorus Level 2.3 mg/dl Magnesium Level 2.9 mg/dl Total Bilirubin 0.8 mg/dl Aspartate Amino Transf (AST/SGOT) 44 U/L Alanine Aminotransferase (ALT/SGPT) 20 U/L Alkaline Phosphatase 158 U/L Total Protein 5.0 gm/dl Albumin 1.7 gm/dl Globulin 3.3 gm/dl Albumin/Globulin Ratio 0.5 Procalcitonin 17.23 ng/mL Blood Gas Sample Site Art Line Bedside Blood Gas pH (LAB) 7.38 Bedside Blood Gas pCO2 (LAB) 46 mmHg Bedside Blood Gas pO2 (LAB) 57 mmHg Bedside Blood Gas HCO3 (LAB) 27 meq/L Bedside Blood Gas Total CO2 28 mEq/l Bedside Blood Gas Base Excess (LAB) 2.0 meq/L Bedside Blood Gas O2 Saturation 89.0 % Bennie Test NA Oxygen Delivery Device Ventilator Bedside Oxygen Rate (breaths/min) 34 Bedside FiO2 40 % Blood Gas Tidal Volume 350 Blood Gas PEEP 16 Bedside Glucose (other) 216 mg/dl 219 mg/dl Test 08/07/16 09:16 08/07/16 10:16 08/07/16 11:29 08/07/16 12:12 Bedside Glucose (other) 213 mg/dl 230 mg/dl 197 mg/dl 180 mg/dl Test 08/07/16 13:20 08/07/16 14:22 08/07/16 14:41 08/07/16 15:04 Bedside Glucose (other) 144 mg/dl 139 mg/dl 133 mg/dl Blood Gas Sample Site Art Line Bedside Blood Gas pH (LAB) 7.33 Bedside Blood Gas pCO2 (LAB) 59 mmHg Bedside Blood Gas pO2 (LAB) 65 mmHg Bedside Blood Gas HCO3 (LAB) 31 meq/L Bedside Blood Gas Total CO2 33 mEq/l Bedside Blood Gas Base Excess (LAB) 5.0 meq/L Bedside Blood Gas O2 Saturation 90.0 % Bennie Test NA Oxygen Delivery Device Ventilator Bedside Oxygen Rate (breaths/min) 34 Blood Gas Minute Ventilation 11.1 Bedside FiO2 40 % Blood Gas Tidal Volume 270 Blood Gas PEEP 16 Test 08/07/16 16:07 08/07/16 16:12 08/07/16 17:13 08/07/16 18:08 Lactic Acid Level 2.4 mmol/L Bedside Glucose (other) 123 mg/dl 132 mg/dl 142 mg/dl Test 08/07/16 18:31 08/07/16 19:17 08/07/16 20:15 08/07/16 21:24 Blood Gas Sample Site Art Line Bedside Blood Gas pH (LAB) 7.29 Bedside Blood Gas pCO2 (LAB) 63 mmHg Bedside Blood Gas pO2 (LAB) 66 mmHg Bedside Blood Gas HCO3 (LAB) 30 meq/L Bedside Blood Gas Total CO2 32 mEq/l Bedside Blood Gas Base Excess (LAB) 3.0 meq/L Bedside Blood Gas O2 Saturation 89.0 % Bennie Test NA Oxygen Delivery Device Ventilator Bedside Oxygen Rate (breaths/min) 34 Blood Gas Minute Ventilation 9.1 Bedside FiO2 40 % Blood Gas Tidal Volume 270 Blood Gas PEEP 16 Bedside Glucose (other) 132 mg/dl 138 mg/dl 150 mg/dl
[2016-08-08] VITALS (12 sets, daily range): BP systolic 116–199; BP diastolic 46–77; PULSE 89–109; TEMP 36.8–38; O2SAT 92–94
[2016-08-08] MEDS: IPRATROPIUM BROMIDE HFA INHALER INH SCH ×4 (01:41→19:25)
[2016-08-08] MEDS: LEValbuterol HFA 15GM INHALER INH SCH ×4 (01:41→19:25)
[2016-08-08] MEDS ORDERED: FUROSEMIDE INJ 20 MG in SYRINGE 0 ML IV ONE (01:45)
[2016-08-08] MEDS: FENTANYL CITRATE INJ 50 MCG/1 ML 2 ML VIAL IV PRN (02:15)
[2016-08-08] MEDS ORDERED: METOPROLOL TARTRATE 1 MG/ML VIAL IV STA (03:43)
[2016-08-08 03:49] LABS: ISTAT ARTERIAL BLOOD GAS HCO3 33 meq/L (19-24); ISTAT ARTERIAL BLOOD GAS PCO2 68 mmHg (35-46); ISTAT ARTERIAL BLOOD GAS PO2 70 mmHg (80-95); ISTAT ARTERIAL BLOOD GAS pH 7.29 (7.35-7.45); ISTAT CARBON DIOXIDE 35 mEq/l (24-31); ISTAT HEMATOCRIT 30 % (37-47); ISTAT HEMOGLOBIN 10.2 g/dl (12.0-16.0); ISTAT SODIUM 138 mEq/L (135-144)
[2016-08-08] MEDS ORDERED: METOPROLOL TARTRATE 1 MG/ML VIAL ONE ×2 (03:50→18:58)
[2016-08-08 05:12] LABS: ISTAT ARTERIAL BLOOD GAS HCO3 31 meq/L (19-24); ISTAT ARTERIAL BLOOD GAS PCO2 64 mmHg (35-46); ISTAT ARTERIAL BLOOD GAS PO2 74 mmHg (80-95); ISTAT ARTERIAL BLOOD GAS pH 7.29 (7.35-7.45); ISTAT CARBON DIOXIDE 33 mEq/l (24-31); ISTAT DELIVERY SYSTEM Ventilator; ISTAT FIO2 40 %; ISTAT PEEP 16; ISTAT RATE 34; ISTAT SITE Art Line; VE 11.6; Vt 330
[2016-08-08] MEDS: HEPARIN SOD 5000 UNIT/0.5 ML CARP SQ SCH ×3 (06:00→20:09)
[2016-08-08 06:41] LABS: HEMATOCRIT 29.5 % (37-47); MEAN CELL VOLUME 89.7 fL (80-100); MEAN CORPUSCULAR HEMOGLOBIN 29.8 pg (25-34); MEAN CORPUSCULAR HGB CONC 33.2 g/dl (32-36); MEAN PLATELET VOLUME 11.5 fL (7.4-10.4); PLATELET COUNT 139 K/uL (130-400); RED BLOOD COUNT 3.29 M/uL (4.2-5.4); WHITE BLOOD COUNT 29.33 K/uL (4.8-10.8)
[2016-08-08 07:06] LABS: ALB/GLOB RATIO 0.4 (0.9-2); BUN/CREATININE RATIO 51.8 (10-20); CALCIUM 7.4 mg/dl (8.5-10.1); CREATININE 0.81 mg/dl (0.60-1.20); PHOSPHORUS 4.5 mg/dl (2.5-4.9); POTASSIUM 4.7 mmol/L (3.5-5.1)
[2016-08-08] MEDS: INSULIN ASPART 100 UNITS/ML 3 ML PEN SC SCH ×4 (08:00→20:10)
--- NOTE | 2016-08-08 08:19 | DIAGNOSTIC IMAGING REPORT ---
CHEST ONE VIEW PORTABLE CLINICAL HISTORY: Intubated tube position COMPARISON STUDY: 08/07/2016 FINDINGS: Endotracheal tube 3.8 cm above the giorgio. Right internal jugular catheter within the superior vena cava. Nasogastric tube inferior to the diaphragm. Unchanging bilateral parenchymal infiltrative change. IMPRESSION: No significant change compared to the prior study.. Tubes and line positions are unchanged from the prior study. Unchanging bilateral parenchymal infiltrative change. Electronically signed by: Gonsalo Arias M.D. 08/08/2016 8:18 AM Dictated Date/Time: 08/08/2016 8:14 AM
--- NOTE | 2016-08-08 08:51 | Surgery Progress Note ---
Subjective Date of Service: Aug 08, 2016. Pt. intubated and unable to verbalize. Objective Vitals Date Time Temp Pulse Resp B/P Pulse Ox O2 Delivery O2 Flow Rate FiO2 08/08/16 07:35 40 08/08/16 06:00 91 34 116/57 94 Mechanical Ventilator 40 08/08/16 05:26 40 08/08/16 04:00 40 08/08/16 04:00 94 Mechanical Ventilator 40 08/08/16 04:00 36.8 89 34 126/50 93 Mechanical Ventilator 40 08/08/16 03:52 40 08/08/16 03:48 130 130/65 08/08/16 02:00 109 40 134/77 92 Mechanical Ventilator 40 08/08/16 01:42 40 08/08/16 00:00 36.8 101 34 132/58 92 147/47 08/08/16 00:00 40 08/08/16 00:00 92 Mechanical Ventilator 40 08/07/16 23:20 40 08/07/16 22:00 98 34 141/60 91 08/07/16 21:00 100 34 136/57 91 08/07/16 20:45 99 34 184/48 92 08/07/16 20:08 40 08/07/16 20:00 92 Mechanical Ventilator 40 08/07/16 20:00 36.8 101 34 138/57 91 Mechanical Ventilator 40 08/07/16 18:05 40 08/07/16 18:00 100 34 140/60 91 179/49 08/07/16 16:00 37.0 96 32 131/58 91 181/50 08/07/16 16:00 92 Mechanical Ventilator 40 08/07/16 16:00 40 08/07/16 14:10 40 08/07/16 14:10 93 35 181/45 90 131/58 08/07/16 12:00 96 Mechanical Ventilator 40 08/07/16 12:00 36.9 82 37 188/46 96 Mechanical Ventilator 40 123/57 08/07/16 12:00 40 08/07/16 11:55 84 34 180/44 97 08/07/16 10:20 50 08/07/16 10:00 84 44 187/47 94 123/55 08/07/16 09:10 81 38 167/46 94 116/52 Physical Exam General: No distress CV: + RRR Pulmonary: + pertinent finding (BS present bilaterally ), No respiratory distress Radiology CXR today shows no significant change from yesterday Assessment & Plan 71 year old female with pneumonia -continue supportive care as directed by filtrose crusher (vent, tube feeds, abx, etc.) -will continue to follow with you as pt. has a small right pleural effusion; if this become larger will intervene as clinically indicated -discussed with filtrose crusher POLA
[2016-08-08] MEDS ORDERED: THIAMINE HCL 100 MG TAB PO SCH (09:00)
[2016-08-08] MEDS ORDERED: ZINC SULFATE 220 MG CAP PO SCH (09:00)
[2016-08-08] MEDS ORDERED: ASCORBIC ACID 500 MG TAB GT SCH (09:00)
[2016-08-08] MEDS ORDERED: FUROSEMIDE INJ 40 MG in SYRINGE 0 ML IV ONE (09:00)
[2016-08-08 09:06] LABS: COMPLETE YES; LYMPHOCYTE % 1.7 %; MYELOCYTE % 1.7 %; TOXIC GRANULATION 1+
--- NOTE | 2016-08-08 09:54 | Pharmacy Progress Note ---
Glycemic Control: Progress Nt Date of Service Aug 08, 2016. Scope Glycemic Pharmacist consulted by Dr Huang on 08/04/16 for glycemic control and to write orders per [facility] inpatient glycemic control protocol. Objective Accuchecks BSG (last 24hrs): Test 08/08/16 05:56 Random Glucose 188 mg/dl (70-99) Laboratory Data (last 24hrs) Test 08/08/16 05:56 Anion Gap 5.0 mmol/L BUN/Creatinine Ratio 51.8 Blood Urea Nitrogen 42 mg/dl Creatinine 0.81 mg/dl Potassium Level 4.7 mmol/L Sodium Level 139 mmol/L White Blood Count 29.33 K/uL Red Blood Count 3.29 M/uL Hemoglobin 9.8 g/dL Hematocrit 29.5 % Mean Corpuscular Volume 89.7 fL Mean Corpuscular Hemoglobin 29.8 pg Mean Corpuscular Hemoglobin Concent 33.2 g/dl Platelet Count 139 K/uL Mean Platelet Volume 11.5 fL HbA1c: Test 08/04/16 08:46 Hemoglobin A1c 8.1 % (4.5-5.6) H Recent Pertinent Medications Outpatient Anti-diabetic Regimen: * NPH per scale - reported to be 8 units BID in [employer] records * Humulin R per scale in AM - reported to be 4 units in AM in [employer] records * A1c = 8.1 % 08/04/16 The patient is currently receiving: * IV insulin infusion; goal range 140-180mg/dL Risk Factors for Insulin Resistance: * Infection: acute resp failure, PNX, strep pn bacteremia; abx --> Levofloxacin + Rocephin * Diet: Impact TF's @45 cc/hr this AM * Mechanical Ventilation: yes Assessment & Plan ASSESSMENT: * Average insulin drip rate over the past 24 hours has been ~0.9-1.1 units/hr * BSGs ranging 123 -216 over the past 24hrs * Risk factors for insulin resistance have remained constant over the last 24hrs with the exception of increasing tube feeds to goal * Continue insulin drip and transition patient when extubated * ADA & AACE recommend a goal blood sugar range 140-180 mg/dl for the majority of critically ill & non-critically ill patients. However, more stringent targets may be selected in individual cases. PLAN FOR INPATIENT GLYCEMIC CONTROL: * Continue IV insulin infusion per moderate stress protocol * Goal Range 140 - 180 mg/dl * In the critical care setting, continuous IV insulin infusion has been shown to be the best method for achieving glycemic targets. * Please note that the plan above was derived based on current level of insulin resistance and hospital stress. These recommendations are appropriate for inpatient admission only. Plan of care upon discharge will need to be reassessed to avoid potential outpatient hypo/hyperglycemia. Thank you.
--- NOTE | 2016-08-08 10:44 | Progress Note ---
Subjective Date of Service: Aug 08, 2016. Subjective remains intubated. sedated. afebrile. wbc remains elevated, 29 today. amio drip stopped. on multiple abx. repeat cultures negative, sputum with nml brynn, initial sputum and blood cultures with s. pneumo. right effusion noted on cxr, unchanged b/l infiltrates. ct surgery eval, no plan for drainage at this time, will continue to follow. Problem List Medical Problems: (1) Ankle fracture, left Status: Acute (2) Dyslipidemia Status: Chronic (3) Hypoxia Status: Acute (4) Osteoporosis Nos Status: Chronic (5) Pneumonia involving right lung Status: Acute (6) Type 1 diabetes Status: Chronic Objective Vital Signs Date Time Temp Pulse Resp B/P Pulse Ox O2 Delivery O2 Flow Rate FiO2 08/08/16 07:35 40 08/08/16 06:00 91 34 116/57 94 Mechanical Ventilator 40 08/08/16 05:26 40 08/08/16 04:00 40 08/08/16 04:00 94 Mechanical Ventilator 40 08/08/16 04:00 36.8 89 34 126/50 93 Mechanical Ventilator 40 08/08/16 03:52 40 08/08/16 03:48 130 130/65 08/08/16 02:00 109 40 134/77 92 Mechanical Ventilator 40 08/08/16 01:42 40 08/08/16 00:00 36.8 101 34 132/58 92 147/47 08/08/16 00:00 40 08/08/16 00:00 92 Mechanical Ventilator 40 08/07/16 23:20 40 08/07/16 22:00 98 34 141/60 91 08/07/16 21:00 100 34 136/57 91 08/07/16 20:45 99 34 184/48 92 08/07/16 20:08 40 08/07/16 20:00 92 Mechanical Ventilator 40 08/07/16 20:00 36.8 101 34 138/57 91 Mechanical Ventilator 40 08/07/16 18:05 40 08/07/16 18:00 100 34 140/60 91 179/49 08/07/16 16:00 37.0 96 32 131/58 91 181/50 08/07/16 16:00 92 Mechanical Ventilator 40 08/07/16 16:00 40 08/07/16 14:10 40 08/07/16 14:10 93 35 181/45 90 131/58 08/07/16 12:00 96 Mechanical Ventilator 40 08/07/16 12:00 36.9 82 37 188/46 96 Mechanical Ventilator 40 123/57 08/07/16 12:00 40 08/07/16 11:55 84 34 180/44 97 Laboratory Results Item Value Date Time Blood Culture - Preliminary Resulted 08/05/16 0510 Blood NO GROWTH TO DATE. Blood Culture - Preliminary Resulted 08/05/16 0457 Blood NO GROWTH TO DATE. Gram Stain - Final Complete 08/04/16 0900 Sputum Expectorated Sputum Blood Culture - Final Complete 08/04/16 0315 Blood Strep. Pneumo - Penic Suscept Blood Culture - Final Complete 08/04/16 0300 Blood Strep. Pneumo - Penic Suscept Gram Stain - Final Complete 08/04/16 0000 Bronchial Washings Right Lower Lobe Last 24 Hours Test 08/07/16 11:29 08/07/16 12:12 08/07/16 13:20 08/07/16 14:22 Bedside Glucose (other) 197 mg/dl 180 mg/dl 144 mg/dl 139 mg/dl Test 08/07/16 14:41 08/07/16 15:04 08/07/16 16:07 08/07/16 16:12 Blood Gas Sample Site Art Line Bedside Blood Gas pH (LAB) 7.33 Bedside Blood Gas pCO2 (LAB) 59 mmHg Bedside Blood Gas pO2 (LAB) 65 mmHg Bedside Blood Gas HCO3 (LAB) 31 meq/L Bedside Blood Gas Total CO2 33 mEq/l Bedside Blood Gas Base Excess (LAB) 5.0 meq/L Bedside Blood Gas O2 Saturation 90.0 % Bennie Test NA Oxygen Delivery Device Ventilator Bedside Oxygen Rate (breaths/min) 34 Blood Gas Minute Ventilation 11.1 Bedside FiO2 40 % Blood Gas Tidal Volume 270 Blood Gas PEEP 16 Bedside Glucose (other) 133 mg/dl 123 mg/dl Lactic Acid Level 2.4 mmol/L Test 08/07/16 17:13 08/07/16 18:08 08/07/16 18:31 08/07/16 19:17 Bedside Glucose (other) 132 mg/dl 142 mg/dl 132 mg/dl Blood Gas Sample Site Art Line Bedside Blood Gas pH (LAB) 7.29 Bedside Blood Gas pCO2 (LAB) 63 mmHg Bedside Blood Gas pO2 (LAB) 66 mmHg Bedside Blood Gas HCO3 (LAB) 30 meq/L Bedside Blood Gas Total CO2 32 mEq/l Bedside Blood Gas Base Excess (LAB) 3.0 meq/L Bedside Blood Gas O2 Saturation 89.0 % Bennie Test NA Oxygen Delivery Device Ventilator Bedside Oxygen Rate (breaths/min) 34 Blood Gas Minute Ventilation 9.1 Bedside FiO2 40 % Blood Gas Tidal Volume 270 Blood Gas PEEP 16 Test 08/07/16 20:15 08/07/16 21:24 08/07/16 22:12 08/08/16 00:18 Bedside Glucose (other) 138 mg/dl 150 mg/dl 158 mg/dl 145 mg/dl Test 08/08/16 02:06 08/08/16 02:23 08/08/16 03:36 08/08/16 04:14 Lactic Acid Level 3.3 mmol/L Bedside Glucose (other) 170 mg/dl 168 mg/dl Bedside Hemoglobin 10.2 g/dl Bedside Hematocrit 30 % Bedside Blood Gas pH (LAB) 7.29 Bedside Blood Gas pCO2 (LAB) 68 mmHg Bedside Blood Gas pO2 (LAB) 70 mmHg Bedside Blood Gas HCO3 (LAB) 33 meq/L Bedside Blood Gas Total CO2 35 mEq/l Bedside Blood Gas Base Excess (LAB) 7.0 meq/L Bedside Blood Gas O2 Saturation 91.0 % Bedside Sodium 138 mEq/L Bedside Potassium 4.9 mEq/L Test 08/08/16 04:58 08/08/16 05:56 08/08/16 06:01 08/08/16 08:23 Blood Gas Sample Site Art Line Bedside Blood Gas pH (LAB) 7.29 Bedside Blood Gas pCO2 (LAB) 64 mmHg Bedside Blood Gas pO2 (LAB) 74 mmHg Bedside Blood Gas HCO3 (LAB) 31 meq/L Bedside Blood Gas Total CO2 33 mEq/l Bedside Blood Gas Base Excess (LAB) 5.0 meq/L Bedside Blood Gas O2 Saturation 92.0 % Bennie Test NA Oxygen Delivery Device Ventilator Bedside Oxygen Rate (breaths/min) 34 Blood Gas Minute Ventilation 11.6 Bedside FiO2 40 % Blood Gas Tidal Volume 330 Blood Gas PEEP 16 White Blood Count 29.33 K/uL Red Blood Count 3.29 M/uL Hemoglobin 9.8 g/dL Hematocrit 29.5 % Mean Corpuscular Volume 89.7 fL Mean Corpuscular Hemoglobin 29.8 pg Mean Corpuscular Hemoglobin Concent 33.2 g/dl Platelet Count 139 K/uL Mean Platelet Volume 11.5 fL RDW Standard Deviation 49.2 fL RDW Coefficient of Variation 14.8 % Neutrophils % (Manual) 94.0 % Lymphocytes % (Manual) 1.7 % Monocytes % (Manual) 2.6 % Myelocytes % 1.7 % Neutrophils # (Manual) 27.57 K/uL Total Absolute Neutrophils 27.57 K/uL Lymphocytes # (Manual) 0.50 K/uL Total Absolute Lymphocytes 0.50 K/uL Monocytes # (Manual) 0.76 K/uL Myelocytes # 0.50 K/uL Toxic Granulation 1+ Sodium Level 139 mmol/L Potassium Level 4.7 mmol/L Chloride Level 101 mmol/L Carbon Dioxide Level 33 mmol/L Anion Gap 5.0 mmol/L Blood Urea Nitrogen 42 mg/dl Creatinine 0.81 mg/dl Est Creatinine Clear Calc Drug Dose 63.0 ml/min Estimated GFR () 84.7 Estimated GFR (Non- 73.1 BUN/Creatinine Ratio 51.8 Random Glucose 188 mg/dl Lactic Acid Level 3.4 mmol/L Calcium Level 7.4 mg/dl Ionized Calcium 1.03 mmol/l Phosphorus Level 4.5 mg/dl Magnesium Level 3.0 mg/dl Total Bilirubin 0.7 mg/dl Aspartate Amino Transf (AST/SGOT) 43 U/L Alanine Aminotransferase (ALT/SGPT) 23 U/L Alkaline Phosphatase 289 U/L Total Protein 5.6 gm/dl Albumin 1.5 gm/dl Globulin 4.1 gm/dl Albumin/Globulin Ratio 0.4 Procalcitonin 10.66 ng/mL Bedside Glucose (other) 190 mg/dl 212 mg/dl Test 08/08/16 09:38 Bedside Glucose (other) 222 mg/dl Assessment and Plan (1) Sepsis due to Streptococcus pneumoniae Assessment & Plan: continue abx, would give min 14 days. repeat blood cultures negative, extensive infiltrate, pna + ARDS, has effusion, continue to follow, could be a risk for empyema. trend wbc. continue supportive care. (2) Septic shock due to streptococcal infection (3) Pneumonia involving right lung (4) Leukocytosis Continued [facility] stay due to: multiple IV medications needed Discharge planning: uncertain
[2016-08-08] MEDS: MULTIVITAMIN TAB PO SCH (11:13)
[2016-08-08] MEDS: LEVOFLOXACIN / D5W 750 MG in PREMIXED IN D5W 150 ML IV SCH (11:13)
[2016-08-08] MEDS: CEFTRIAXONE SOD INJ 1000 MG in DEXTROSE 5% 50ML IV SCH (11:14)
[2016-08-08] MEDS: PANTOprazole INJ 40 MG in SYRINGE 0 ML IV SCH (11:14)
[2016-08-08 11:41] LABS: ISTAT ARTERIAL BLOOD GAS pH 7.39 (7.35-7.45)
[2016-08-08 11:42] LABS: ISTAT ARTERIAL BLOOD GAS HCO3 32 meq/L (19-24); ISTAT ARTERIAL BLOOD GAS PCO2 53 mmHg (35-46); ISTAT ARTERIAL BLOOD GAS PO2 72 mmHg (80-95); ISTAT CARBON DIOXIDE 33 mEq/l (24-31); ISTAT FIO2 50 %
[2016-08-08 11:43] LABS: ISTAT ALLEN TEST NOT PERFORMED; ISTAT DELIVERY SYSTEM Ventilator; ISTAT PEEP 16; ISTAT RATE 34; ISTAT SAMPLE TYPE ARTERIAL; ISTAT SITE Art Line; VE 10.1; Vt 300
[2016-08-08 11:45] LABS: ISTAT SPO2 97 %
[2016-08-08 11:49] LABS: ISTAT ARTERIAL BLOOD GAS HCO3 32 meq/L (19-24); ISTAT ARTERIAL BLOOD GAS PCO2 54 mmHg (35-46); ISTAT ARTERIAL BLOOD GAS PO2 72 mmHg (80-95); ISTAT ARTERIAL BLOOD GAS pH 7.38 (7.35-7.45); ISTAT CARBON DIOXIDE 34 mEq/l (24-31); ISTAT DELIVERY SYSTEM Ventilator; ISTAT FIO2 40 %; ISTAT PEEP 16; ISTAT RATE 34; ISTAT SITE Art Line; VE 11.1; Vt 330
[2016-08-08 16:08] LABS: ISTAT ARTERIAL BLOOD GAS HCO3 32 meq/L (19-24); ISTAT ARTERIAL BLOOD GAS PCO2 51 mmHg (35-46); ISTAT ARTERIAL BLOOD GAS PO2 71 mmHg (80-95); ISTAT ARTERIAL BLOOD GAS pH 7.41 (7.35-7.45); ISTAT CARBON DIOXIDE 34 mEq/l (24-31); ISTAT DELIVERY SYSTEM Ventilator; ISTAT FIO2 40 %; ISTAT PEEP 14; ISTAT RATE 34; ISTAT SITE Art Line; VE 12.4; Vt 330
--- NOTE | 2016-08-08 17:03 | Progress Note ---
Subjective Date of Service: Aug 08, 2016. Subjective Pt evaluation today including: conversation w/ family, chart review, lab review , review of studies, conversation w/ customer service sales consultant, review of inpatient medication list Off sedation, 2-3 hour later patient not wake up , last night was having transient A. fib, x2, the secondary episode was resolved by self Problem List Medical Problems: (1) Ankle fracture, left Status: Acute (2) Dyslipidemia Status: Chronic (3) Hypoxia Status: Acute (4) Osteoporosis Nos Status: Chronic (5) Pneumonia involving right lung Status: Acute (6) Type 1 diabetes Status: Chronic Review of Systems Constitutional: + problem reported (not able to obtain because of medicine effects possible and not wake up.) Objective Vital Signs Date Time Temp Pulse Resp B/P Pulse Ox O2 Delivery O2 Flow Rate FiO2 08/08/16 14:31 40 08/08/16 11:10 40 08/08/16 07:35 40 08/08/16 06:00 91 34 116/57 94 Mechanical Ventilator 40 08/08/16 05:26 40 08/08/16 04:00 40 08/08/16 04:00 94 Mechanical Ventilator 40 08/08/16 04:00 36.8 89 34 126/50 93 Mechanical Ventilator 40 08/08/16 03:52 40 08/08/16 03:48 130 130/65 08/08/16 02:00 109 40 134/77 92 Mechanical Ventilator 40 08/08/16 01:42 40 08/08/16 00:00 36.8 101 34 132/58 92 147/47 08/08/16 00:00 40 08/08/16 00:00 92 Mechanical Ventilator 40 08/07/16 23:20 40 08/07/16 22:00 98 34 141/60 91 08/07/16 21:00 100 34 136/57 91 08/07/16 20:45 99 34 184/48 92 08/07/16 20:08 40 08/07/16 20:00 92 Mechanical Ventilator 40 08/07/16 20:00 36.8 101 34 138/57 91 Mechanical Ventilator 40 08/07/16 18:05 40 08/07/16 18:00 100 34 140/60 91 179/49 Physical Exam General Appearance: + thin, + pertinent finding (intubated) Eyes: + pertinent finding ( pupil is sluggish, left pupil 3 mm right pupil 4 mm) ENT: pharynx normal Neck: no adenopathy, thyroid normal, no JVD, no carotid bruits, trachea midline Respiratory/Chest: + decreased breath sounds, + rales, + wheezing Cardiovascular: no gallop, no JVD, no murmur, + pertinent finding (1+ edema) Abdomen: + abnormal bowel sounds (decreased) Extremities: normal capillary refill Neurologic/Psychiatric: + pertinent finding (able to evaluation) Skin: normal color, warm/dry, no rash Lymphatic: no adenopathy Laboratory Results Last 24 Hours Test 08/07/16 17:13 08/07/16 18:08 08/07/16 18:31 08/07/16 19:17 Bedside Glucose (other) 132 mg/dl 142 mg/dl 132 mg/dl Blood Gas Sample Site Art Line Bedside Blood Gas pH (LAB) 7.29 Bedside Blood Gas pCO2 (LAB) 63 mmHg Bedside Blood Gas pO2 (LAB) 66 mmHg Bedside Blood Gas HCO3 (LAB) 30 meq/L Bedside Blood Gas Total CO2 32 mEq/l Bedside Blood Gas Base Excess (LAB) 3.0 meq/L Bedside Blood Gas O2 Saturation 89.0 % Bennie Test NA Oxygen Delivery Device Ventilator Bedside Oxygen Rate (breaths/min) 34 Blood Gas Minute Ventilation 9.1 Bedside FiO2 40 % Blood Gas Tidal Volume 270 Blood Gas PEEP 16 Test 08/07/16 20:15 08/07/16 21:24 08/07/16 22:12 08/08/16 00:18 Bedside Glucose (other) 138 mg/dl 150 mg/dl 158 mg/dl 145 mg/dl Test 08/08/16 02:06 08/08/16 02:23 08/08/16 03:36 08/08/16 04:14 Lactic Acid Level 3.3 mmol/L Bedside Glucose (other) 170 mg/dl 168 mg/dl Bedside Hemoglobin 10.2 g/dl Bedside Hematocrit 30 % Bedside Blood Gas pH (LAB) 7.29 Bedside Blood Gas pCO2 (LAB) 68 mmHg Bedside Blood Gas pO2 (LAB) 70 mmHg Bedside Blood Gas HCO3 (LAB) 33 meq/L Bedside Blood Gas Total CO2 35 mEq/l Bedside Blood Gas Base Excess (LAB) 7.0 meq/L Bedside Blood Gas O2 Saturation 91.0 % Bedside Sodium 138 mEq/L Bedside Potassium 4.9 mEq/L Test 08/08/16 04:58 08/08/16 05:56 08/08/16 06:01 08/08/16 08:23 Blood Gas Sample Site Art Line Bedside Blood Gas pH (LAB) 7.29 Bedside Blood Gas pCO2 (LAB) 64 mmHg Bedside Blood Gas pO2 (LAB) 74 mmHg Bedside Blood Gas HCO3 (LAB) 31 meq/L Bedside Blood Gas Total CO2 33 mEq/l Bedside Blood Gas Base Excess (LAB) 5.0 meq/L Bedside Blood Gas O2 Saturation 92.0 % Bennie Test NA Oxygen Delivery Device Ventilator Bedside Oxygen Rate (breaths/min) 34 Blood Gas Minute Ventilation 11.6 Bedside FiO2 40 % Blood Gas Tidal Volume 330 Blood Gas PEEP 16 White Blood Count 29.33 K/uL Red Blood Count 3.29 M/uL Hemoglobin 9.8 g/dL Hematocrit 29.5 % Mean Corpuscular Volume 89.7 fL Mean Corpuscular Hemoglobin 29.8 pg Mean Corpuscular Hemoglobin Concent 33.2 g/dl Platelet Count 139 K/uL Mean Platelet Volume 11.5 fL RDW Standard Deviation 49.2 fL RDW Coefficient of Variation 14.8 % Neutrophils % (Manual) 94.0 % Lymphocytes % (Manual) 1.7 % Monocytes % (Manual) 2.6 % Myelocytes % 1.7 % Neutrophils # (Manual) 27.57 K/uL Total Absolute Neutrophils 27.57 K/uL Lymphocytes # (Manual) 0.50 K/uL Total Absolute Lymphocytes 0.50 K/uL Monocytes # (Manual) 0.76 K/uL Myelocytes # 0.50 K/uL Toxic Granulation 1+ Sodium Level 139 mmol/L Potassium Level 4.7 mmol/L Chloride Level 101 mmol/L Carbon Dioxide Level 33 mmol/L Anion Gap 5.0 mmol/L Blood Urea Nitrogen 42 mg/dl Creatinine 0.81 mg/dl Est Creatinine Clear Calc Drug Dose 63.0 ml/min Estimated GFR () 84.7 Estimated GFR (Non- 73.1 BUN/Creatinine Ratio 51.8 Random Glucose 188 mg/dl Lactic Acid Level 3.4 mmol/L Calcium Level 7.4 mg/dl Ionized Calcium 1.03 mmol/l Phosphorus Level 4.5 mg/dl Magnesium Level 3.0 mg/dl Total Bilirubin 0.7 mg/dl Aspartate Amino Transf (AST/SGOT) 43 U/L Alanine Aminotransferase (ALT/SGPT) 23 U/L Alkaline Phosphatase 289 U/L Total Protein 5.6 gm/dl Albumin 1.5 gm/dl Globulin 4.1 gm/dl Albumin/Globulin Ratio 0.4 Procalcitonin 10.66 ng/mL Bedside Glucose (other) 190 mg/dl 212 mg/dl Test 08/08/16 09:38 08/08/16 10:44 08/08/16 11:33 08/08/16 11:43 Bedside Glucose (other) 222 mg/dl 222 mg/dl 210 mg/dl Blood Gas Sample Site Art Line Bedside Blood Gas pH (LAB) 7.38 Bedside Blood Gas pCO2 (LAB) 54 mmHg Bedside Blood Gas pO2 (LAB) 72 mmHg Bedside Blood Gas HCO3 (LAB) 32 meq/L Bedside Blood Gas Total CO2 34 mEq/l Bedside Blood Gas Base Excess (LAB) 7.0 meq/L Bedside Blood Gas O2 Saturation 94.0 % Bennie Test NA Oxygen Delivery Device Ventilator Bedside Oxygen Rate (breaths/min) 34 Blood Gas Minute Ventilation 11.1 Bedside FiO2 40 % Blood Gas Tidal Volume 330 Blood Gas PEEP 16 Test 08/08/16 13:11 08/08/16 13:51 08/08/16 14:41 08/08/16 15:48 Bedside Glucose (other) 243 mg/dl 250 mg/dl 241 mg/dl Blood Gas Sample Site Art Line Bedside Blood Gas pH (LAB) 7.41 Bedside Blood Gas pCO2 (LAB) 51 mmHg Bedside Blood Gas pO2 (LAB) 71 mmHg Bedside Blood Gas HCO3 (LAB) 32 meq/L Bedside Blood Gas Total CO2 34 mEq/l Bedside Blood Gas Base Excess (LAB) 7.0 meq/L Bedside Blood Gas O2 Saturation 94.0 % Bennie Test NA Oxygen Delivery Device Ventilator Bedside Oxygen Rate (breaths/min) 34 Blood Gas Minute Ventilation 12.4 Bedside FiO2 40 % Blood Gas Tidal Volume 330 Blood Gas PEEP 14 Test 08/08/16 15:55 08/08/16 15:56 08/08/16 16:44 Lactic Acid Level 3.6 mmol/L Bedside Glucose (other) 238 mg/dl 239 mg/dl Assessment and Plan 71 year old female admitted on 08/04/2016 with acute shortness of breath, admitted to the ICU service for the following problems: - Acute Hypoxemic Respiratory Failure likely secondary to severe pneumonia sepsis and septic shock, remains critical Pressure support was off in second day of admission remains critical - Severe ARDS - Sepsis with Septic Shock from pneumonia, - Right Lobar Pneumonia, on nebulizer treatment, antibiotic has been narrow down - asso with acute renal injury, renal function improving Mild decreased PLT, which is improving Is off sedation medication but not wake up. Episodes of A. fib with RVR, History of atrial fibrillation with RVRl: Continue follow-up - Abnormal CXR, suspicious for possible mass - Suspected Emphysema on CXR - History of supraventricular tachycardia - Grave's Disease - Protein calorie malnutrition and hypoalbuminemia, continue NG tube feeding Continue ICU care, patient's medical condition mainly management by [facility] and DVT prophylaxis ordered, Nutrition support CODE STATUS - Full Code - Designates to be substitute decision-maker if she cannot make decisions herself Discussed with RN and care team, discussed with patient's , answered all questions Continued [facility] stay due to: multiple IV medications needed Discharge planning: uncertain
[2016-08-08] MEDS: INSULIN REGULAR 250 UNITS in SODIUM CHLORIDE 0.9% 250ML 250 ML IV SCH (17:39)
[2016-08-08 17:50] LABS: ISTAT ARTERIAL BLOOD GAS HCO3 37 meq/L (19-24); ISTAT ARTERIAL BLOOD GAS PCO2 53 mmHg (35-46); ISTAT ARTERIAL BLOOD GAS PO2 55 mmHg (80-95); ISTAT ARTERIAL BLOOD GAS pH 7.46 (7.35-7.45); ISTAT CARBON DIOXIDE 39 mEq/l (24-31); ISTAT DELIVERY SYSTEM Ventilator; ISTAT FIO2 35 %; ISTAT PEEP 14; ISTAT RATE 34; ISTAT SITE Art Line; VE 12.6; Vt 330
[2016-08-08] MEDS ORDERED: NURSING VERBAL MED ORDER ONE (19:15)
[2016-08-08] MEDS ORDERED: LISINOPRIL 2.5 MG TAB PO STA (19:26)
[2016-08-08] MEDS: SIMVASTATIN 5 MG TAB PO SCH (19:55)
[2016-08-08] MEDS: ARTIFICIAL TEARS OP OINT 3.5 GM TUBE OPR SCH (20:09)
[2016-08-08] MEDS ORDERED: ACETAMINOPHEN IV 650 MG in EMPTY BAG 0 ML IV PRN (21:15)
[2016-08-08] MEDS ORDERED: DILTIAZEM HCL 5 MG/ML 5 ML VIAL IV PRN (21:15)
[2016-08-08] MEDS ORDERED: KETOROLAC TROMETHAMINE 15 MG/ML VIAL IV PRN (21:15)
[2016-08-08 22:26] LABS: ISTAT ARTERIAL BLOOD GAS HCO3 35 meq/L (19-24); ISTAT ARTERIAL BLOOD GAS PCO2 56 mmHg (35-46); ISTAT ARTERIAL BLOOD GAS PO2 74 mmHg (80-95); ISTAT CARBON DIOXIDE 37 mEq/l (24-31); ISTAT DELIVERY SYSTEM Ventilator; ISTAT FIO2 40 %; ISTAT PEEP 14; ISTAT RATE 34; ISTAT SITE Art Line; VE 12.2; Vt 330
[2016-08-08] MEDS: METOPROLOL TARTRATE 1 MG/ML VIAL IV. SCH (23:52)
[2016-08-09] VITALS (13 sets, daily range): BP systolic 101–184; BP diastolic 42–62; PULSE 75–124; TEMP 35.8–37.5; O2SAT 89–98
[2016-08-09] MEDS: IPRATROPIUM BROMIDE HFA INHALER INH SCH ×2 (02:10→08:51)
[2016-08-09] MEDS: LEValbuterol HFA 15GM INHALER INH SCH ×2 (03:00→08:50)
[2016-08-09] MEDS: METOPROLOL TARTRATE 1 MG/ML VIAL IV. SCH (04:00)
[2016-08-09 05:48] LABS: HEMATOCRIT 27.4 % (37-47); MEAN CORPUSCULAR HEMOGLOBIN 30.6 pg (25-34); MEAN CORPUSCULAR HGB CONC 33.6 g/dl (32-36); MEAN PLATELET VOLUME 10.9 fL (7.4-10.4); PLATELET COUNT 138 K/uL (130-400); RED BLOOD COUNT 3.01 M/uL (4.2-5.4); WHITE BLOOD COUNT 25.19 K/uL (4.8-10.8)
[2016-08-09 06:16] LABS: BUN/CREATININE RATIO 70.2 (10-20); CALCIUM 7.2 mg/dl (8.5-10.1); CREATININE 0.66 mg/dl (0.60-1.20); MAGNESIUM 2.5 mg/dl (1.8-2.4); POTASSIUM 4.3 mmol/L (3.5-5.1)
[2016-08-09 06:17] LABS: PHOSPHORUS 3.7 mg/dl (2.5-4.9)
[2016-08-09] MEDS: HEPARIN SOD 5000 UNIT/0.5 ML CARP SQ SCH (06:20)
[2016-08-09 06:21] LABS: COMPLETE YES; LYMPH ABS # 1.31 K/uL (1.2-3.4); LYMPHOCYTE % 5.2 %; MYELOCYTE % 1.7 %; NEUTROPHILS % 92.2 %
[2016-08-09] MEDS: DEXTROSE 50% 50 ML SYR IV PRN (06:27)
[2016-08-09] MEDS: IMPACT LIQ 1000 ML BAG PO SCH (07:10)
--- NOTE | 2016-08-09 07:12 | Surgery Progress Note ---
Subjective Date of Service: Aug 09, 2016. Pt. remains on vent. Objective Vitals Date Time Temp Pulse Resp B/P Pulse Ox O2 Delivery O2 Flow Rate FiO2 08/09/16 06:00 36.7 76 116/44 98 Mechanical Ventilator 40 08/09/16 05:25 40 08/09/16 04:00 40 08/09/16 04:00 93 Mechanical Ventilator 40 08/09/16 04:00 86 140/62 08/09/16 04:00 37.1 88 35 140/62 93 Mechanical Ventilator 40 08/09/16 02:10 40 08/09/16 02:00 37.3 83 37 143/55 94 40 08/09/16 00:00 40 08/09/16 00:00 37.5 83 38 149/57 92 Mechanical Ventilator 40 184/47 08/09/16 00:00 93 Mechanical Ventilator 40 08/08/16 23:52 92 174/47 08/08/16 22:35 40 08/08/16 22:00 38.0 100 38 140/58 93 Mechanical Ventilator 40 08/08/16 20:32 40 08/08/16 20:00 40 08/08/16 20:00 93 Mechanical Ventilator 40 08/08/16 20:00 37.1 97 40 195/49 94 Mechanical Ventilator 40 149/67 08/08/16 19:16 110 200/76 08/08/16 18:00 104 45 199/55 93 145/66 08/08/16 17:35 40 08/08/16 16:00 37.2 99 38 150/58 92 Mechanical Ventilator 35 190/51 08/08/16 16:00 93 Mechanical Ventilator 40 08/08/16 16:00 35 08/08/16 15:50 35 08/08/16 14:31 40 08/08/16 14:00 96 42 190/73 93 08/08/16 12:00 93 Mechanical Ventilator 35 08/08/16 12:00 40 08/08/16 12:00 36.9 94 40 136/60 94 Mechanical Ventilator 35 183/52 08/08/16 11:10 40 08/08/16 10:00 97 36 185/57 94 08/08/16 08:00 40 08/08/16 08:00 37.0 96 34 126/57 93 Mechanical Ventilator 40 150/46 08/08/16 08:00 93 Mechanical Ventilator 40 08/08/16 07:35 40 Physical Exam General: No distress CV: + RRR, + pertinent finding (BS decreased but present bilaterally ) Radiology CXR today similar to yesterday with bilateral parenchymal infiltrates Assessment & Plan 71 year old female with pneumonia -supportive care measures will continue as directed by conservation planner (vent, tube feeds, abx, etc.) -will continue to follow for small right pleural effusion; if this become larger will intervene as clinically indicated
--- NOTE | 2016-08-09 07:30 | DIAGNOSTIC IMAGING REPORT ---
CHEST ONE VIEW PORTABLE CLINICAL HISTORY: Pneumonia. COMPARISON STUDY: Chest radiograph August 08, 2016 FINDINGS: The tip of the nasogastric tube is below the lower aspect of this image but at least within the proximal body of the stomach. The tip of the endotracheal tube is 2.7 cm above the giorgio. There is no pneumothorax. Extensive right lung consolidation persists left basilar opacity persists. Mild lucency projecting of the right lower hemithorax. There is diffuse interstitial thickening. A left sided central venous catheter is in place. IMPRESSION: 1. Satisfactory positioning of lines and tubes. 2. No significant change in extensive right lung airspace opacity and left basilar opacity which favors pneumonia. Small lucency projecting over the right lower lung could reflect aerated lung, cavitation or trace pleural gas. 3. Small bilateral pleural effusions. Electronically signed by: Tj Friend M.D. 08/09/2016 7:29 AM Dictated Date/Time: 08/09/2016 7:26 AM
--- NOTE | 2016-08-09 08:09 | DIAGNOSTIC IMAGING REPORT ---
CT OF THE HEAD WITHOUT CONTRAST CLINICAL HISTORY: ARDS/PNA; weaned sedation; patient not waking; r/o stroke COMPARISON STUDY: Head CT February 20, 2015. CT DOSE: 537.48 mGy.cm TECHNIQUE: Helical axial images of the head were obtained without IV contrast. Automated exposure control was utilized for the study. FINDINGS: No acute intracranial hemorrhage, midline shift or mass effect is present. Ventricular system is stable. Basilar cisterns are patent. There is a cavum septum pellucidum. There are no findings to suggest acute dural sinus thrombosis or acute territorial infarct. There is no calvarial fracture. There is a moderate amount of fluid within the left mastoid air cells and a small amount of fluid within the right mastoid air cells. IMPRESSION: 1. No acute intracranial findings. 2. Fluid within the bilateral mastoid air cells. Electronically signed by: Tj Friend M.D. 08/09/2016 8:08 AM Dictated Date/Time: 08/09/2016 8:04 AM
[2016-08-09] MEDS ORDERED: PROSOURCE NOCARB 30ML/PKT PO SCH (09:00)
[2016-08-09] MEDS ORDERED: MoRPHine SULF/NSS 250MG/250ML 250 ML IV PRN (10:45)
--- NOTE | 2016-08-09 10:51 | EEG Procedure Note ---
EEG Procedure Note Date of Service Aug 09, 2016. Start / End Times Start Time: 956 End Time: [address] Ortiz History 71 year old with with severe encephalopathy post pneumonia question brain Home Medication List Scheduled Alendronate Sodium (Fosamax), 70 MG PO WK Artificial Tear Ointment (Refresh P.m.), 1 APPLN OPR HS Cholecalciferol (Vitamin D3), 1,000 UNIT PO DAILY Insulin Human NPH (Humulin N), UNITS SQ BID Insulin Human Regular (Humulin R), UNITS SQ QAM Lisinopril (Zestril), 1.25 MG PO QAM Lorazepam (Lorazepam), 1 TAB PO HS Multiple Vitamin (Multi-Vitamin), 1 TAB PO DAILY Polyethylene Glycol-Propylene (Systane Gel), 1 DROP OPR HS Simvastatin (Zocor), 5 MG PO HS Inpatient Medication List Current Inpatient Medications Medications (Trade) Dose Ordered Sig/Sarthak Route Start Time Stop Time Status Last Admin Dose Admin Acetaminophen (Tylenol Tab) 650 mg Q4H PRN PO 08/04/16 04:30 09/03/16 04:29 08/04/16 06:35 650 MG Al Hydrox/Mg Hydrox/Simethicone (Maalox Max Susp) 15 ml Q4H PRN PO 08/04/16 04:30 09/03/16 04:29 Magnesium Hydroxide (Milk Of Magnesia Susp) 30 ml Q12H PRN PO 08/04/16 04:30 09/03/16 04:29 Ondansetron HCl (Zofran Inj) 4 mg Q6H PRN IV 08/04/16 04:30 09/03/16 04:29 Nitroglycerin (Nitrostat Tab) 0.4 mg UD PRN SL 08/04/16 04:30 09/03/16 04:29 Polyethylene (Miralax Powder Packet) 17 gm DAILY PRN PO 08/04/16 04:30 09/03/16 04:29 Glucose (Glucose 40% Gel) 15-30 GRAMS 15 GRAMS... UD PRN PO 08/04/16 04:30 09/03/16 04:29 Glucose (Glucose Chew Tab) 4-8 Tablets 4 Tabl... UD PRN PO 08/04/16 04:30 09/03/16 04:29 Dextrose (Dextrose 50% 50ML Syringe) 25-50ML OF 50% DW IV FOR... UD PRN IV 08/04/16 04:30 09/03/16 04:29 08/09/16 06:27 25 ML Glucagon (Glucagon Inj) 1 mg UD PRN SQ 08/04/16 04:30 09/03/16 04:29 Artificial Tears (Lacri-Lube Oph Oint) 1 appln HS OPR 08/04/16 21:00 09/03/16 20:59 08/08/16 20:09 1 APPLN Lisinopril (Zestril Tab) 1.25 mg QAM PO 08/04/16 09:00 09/03/16 08:59 Future Hold Lorazepam (Ativan Tab) 0.5 mg HS PO 08/04/16 21:00 09/03/16 20:59 Future Hold Multivitamins (Multivitamin Tab) 1 tab DAILY PO 08/04/16 09:00 09/03/16 08:59 08/08/16 11:13 1 TAB Simvastatin (Zocor Tab) 5 mg HS PO 08/04/16 21:00 09/03/16 20:59 08/08/16 19:55 5 MG Levofloxacin (Consult) 1 ea UD PRN N/A 08/04/16 05:00 08/19/16 23:59 Miscellaneous Information 1 ea 1 ea UD PRN N/A 08/04/16 10:51 09/03/16 10:50 Pantoprazole Sodium/Syringe (Protonix Inj/ Syringe) 10 ml @ 5 mls/min DAILY@11 IV 08/05/16 11:00 09/04/16 10:59 08/08/16 11:14 5 MLS/MIN Heparin Sodium (Porcine) (Heparin Sq 5000 Unit/0.5ml) 5,000 unit Q8 SQ 08/04/16 22:00 09/03/16 21:59 08/09/16 06:20 5,000 UNIT Ipratropium [place] (Atrovent Hfa Inhaler) 4 puffs Q6H INH 08/04/16 21:00 09/03/16 20:59 08/09/16 08:51 4 PUFFS Levalbuterol (Xopenex Hfa Inhaler) 4 puffs Q6H INH 08/04/16 21:00 09/03/16 20:59 08/09/16 08:50 4 PUFFS Heparin Sodium (Porcine) 5 ml 5 ml PRN PRN FLUSH 08/05/16 00:45 09/04/16 00:44 08/08/16 23:54 5 ML Midazolam HCl (Midazolam 125MG/ 250ML D5w) 250 ml @ 0 mls/hr Q0M PRN IV 08/05/16 09:46 09/04/16 09:45 08/06/16 19:48 10 MLS/HR Insulin Aspart SLIDING SCALE PCHS SC 08/05/16 12:00 09/04/16 11:59 Insulin Human Regular 250 units/ Sodium Chloride 252.5 ml @ 0 mls/hr DAILY@1130 IV 08/05/16 11:30 09/04/16 11:29 08/08/16 17:39 2.8 MLS/HR Amiodarone HCL/ Dextrose 200 ml @ 16.7 mls/hr [id number] IV 08/05/16 23:39 09/04/16 23:38 Future Hold 08/06/16 22:31 16.7 MLS/HR Ceftriaxone Sodium/Dextrose (Rocephin Inj/ Dextrose Add-[place] 50ML) 50 ml @ 100 mls/hr Q24H IV 08/06/16 10:00 08/19/16 23:59 08/08/16 11:14 100 MLS/HR Fentanyl Citrate (Fentanyl Inj) 25 mcg Q2H PRN IV 08/06/16 09:30 08/20/16 09:29 08/08/16 02:15 25 MCG Enteral Nutritional Formula 1000 ml 1,000 ml UD PO 08/06/16 18:45 09/05/16 18:44 08/09/16 07:10 1,000 ML Levofloxacin/Prmx (Levaquin / D5W/ Premixed D5W) 150 ml @ 100 mls/hr Q24H IV 08/07/16 09:00 08/19/16 23:59 08/08/16 11:13 100 MLS/HR Zinc Sulfate (Zinc Sulfate Cap) 220 mg QAM PO 08/08/16 09:00 09/07/16 08:59 08/08/16 11:13 220 MG Ascorbic Acid (Vitamin C Tab) 1,000 mg QAM GT 08/08/16 09:00 09/07/16 08:59 08/08/16 11:13 1,000 MG Thiamine HCl (Vitamin B-1 Tab) 200 mg QAM PO 08/08/16 09:00 09/07/16 08:59 08/08/16 11:13 200 MG Heparin Sodium (Porcine) (Heparin 10 Unit/ ml 5 ml Flush) 5 ml PRN PRN FLUSH 08/08/16 10:45 09/07/16 10:44 08/08/16 23:54 5 ML Metoprolol Tartrate (Lopressor Iv) 5 mg Q4H IV. 08/09/16 00:00 09/08/16 00:00 08/09/16 04:00 5 MG Diltiazem HCl (Cardizem Inj) 10 mg Q4H PRN IV 08/08/16 21:15 09/07/16 21:14 Ketorolac Tromethamine 15 mg 15 mg Q6H PRN IV 08/08/16 21:15 08/13/16 21:14 Acetaminophen/ Empty Bag (Ofirmev IV/ Empty Iv Bag 100ml) 65 ml @ 260 mls/hr Q6H PRN IV 08/08/16 21:15 09/07/16 21:14 Enteral Nutritional Formula 30 ml 30 ml BID PO 08/09/16 09:00 09/08/16 08:59 Morphine Sulfate/ Dextrose (Morphine Sulf/ Nss 250MG/250ML) 250 ml @ 0 mls/hr Q0M PRN IV 08/09/16 10:45 08/23/16 10:44 Scopolamine (Transderm-Scop Patch) 1.5 mg Q72H TD 08/09/16 10:45 09/08/16 10:44 UNV Miscellaneous (Remove Transderm-Scop Patch) 1 ea Q72H N/A 08/12/16 10:45 09/11/16 10:44 UNV Miscellaneous Information (Check Scopolamine Patch Placement) 1 ea QS N/A 08/09/16 16:00 09/08/16 15:59 UNV Description This is a 21 electrode EEG with a single channel dedicated to limited EKG. The electrodes were placed in accordance with the International 10-20 system. Interpretation The predominate backward activity consists of a very irregular 3-5 Hz activity seen in almost all head regions diffusely of up to 30-40 V in amplitude. This activity had little attenuation with eye opening or other alerting procedures. There was frequently seen small irregular 12-13 Hz activity seen in the occipital head regions throughout most of the head study of 20-30 V in amplitude. This activity had no attenuation with activity either. Photic stimulation produced no change in the background activity. Deep pain produces no change in the background activity. No focal abnormalities or potentially epileptogenic discharges were seen. In summary this study shows evidence for a moderate to severe generalized cerebral dysrhythmia with a rather fast unreactive alpha posteriorly consistent with "alpha coma". This typically carries a poor prognosis. Clinical Correlation The generalized dysrhythmia seen in this recording is consistent with a severe encephalopathy and carries a poor prognosis as noted above. The absence of potentially epileptogenic activity does not exclude a seizure disorder. Clinical correlation is required.
[2016-08-09] MEDS ORDERED: SCOPOLAMINE 1.5 MG TDSY TD SCH (11:00)
--- NOTE | 2016-08-09 11:28 | Critical Care Progress Note ---
Critical Care Progress Note Date of Service Aug 09, 2016. Critical Care Progress Note I had an extensive discussion with the patient's , daughter, son today. All were in agreement that high functional status was a major priority in the patient's life and given her current clinical condition and likelihood of needing extensive rehabilitation even if she was able to overcome her critical illness the quality of life would not be acceptable to her. The entire family was in agreement to transition comfort measures and withdraw life-sustaining treatment. I am in agreement with this, patient will likely have a poor prognosis as she has not been improving significantly and still very critical with relation to acute respiratory distress syndrome. Family is appropriately grieving, and the patient was terminally extubated at 1125 today.
--- NOTE | 2016-08-09 12:43 | Critical Care Progress Note ---
Critical Care Progress Note Date of Service Aug 09, 2016. ICU Day ICU Day Number: [address] Joshi Subjective Patient remains somnolent of Versed Has not been awake overnight Objective Constitutional: Vital signs below were reviewed Eyes: Pupils equal, round, and reactive to light but slight delay in right eye ENT: Mucous membranes are moist. Oropharynx is clear. No sinus tenderness. TMs are clear bilaterally. Endotracheal tube secure Cardiovascular: Heart with a regular rate and rhythm. Pulses are palpable and symmetric in all 4 extremities. No pedal edema appreciated. Respiratory: Remains on Vent, ET tube in place Coarseness right lung > left GI: Abdomen soft, nontender, nondistended. Normal active bowel sounds. No abdominal hernias appreciated. No rebound. No guarding. : No CVA tenderness appreciated. Musculoskeletal/extremities: No midline cervical or vertebral tenderness. No gross deformities. No bony tenderness. No calf swelling or tenderness. Bilateral upper extremity edema Integumentary: Warm, dry, no rashes appreciated. IV line sites intact without evidence of erythema or infection Neurological: RASS score - 4 Lymph: No cervical lymphadenopathy appreciated. Assessment & Plan 71 year old female presents with ARDS secondary to right lobar PNA. . She is currently on day 6 of her admission. Active problems include: Rounded on her this morning, approximately 0800 and identified the following issues: - Acute Hypoxemic Respiratory Failure - ARDS; status improved from severe to moderate - Sepsis with Septic Shock - Right Lobar Pneumonia - Abnormal CXR, suspicious for possible mass - Suspected Emphysema on CXR - History of supraventricular tachycardia - History of atrial fibrillation with RVR - Grave's Disease - Protein calorie malnutrition and hypoalbuminemia - Hypocalcemia NEUROLOGICAL - RASS score remains - 4 with patient off sedation - Noncontrast CT brain done today, without any evidence of acute infarct - EEG reviewed showing severe encephalopathy with absence of epileptiform activity. - Other possible etiologies would include metabolic/medication or seizure activity - The patient has not received Midazolam for more than 24 hours - Last dose of fentanyl 25 g > 24 hours ago - Goal RASS today -1 CARDIAC - BP: Map > 65 Hypertensive overnight Given 2.5 mg Metoprolol IV and home Lisinopril re-started - Off all vasopressor support - IV Fluids: None Supraventricular Tacchycardia and atrial fibrillation with RVR Resolved; no events overnight RESPIRATORY Acute Hypoxic Respiratory Distress - On HIGH PEEP / LOW FiO2 table, currentl at 14% and FiO2 - PaO2/FiO2 185; remains moderate ARDS - ABG: pH 7.4; CO2 56; O2 74; HCO3 35; do not recommend any changes to ventilator settings at this time - Does not meet indications for spontaneous breathing trial today Right Lobar PNA - Pansensitive Strep Pneumo - Levaquin/Rocephin day 10/22 Concern for Lung Neoplasm Work-up on hold at this time; patient remains critically ill GASTROINTESTINAL - Tolerated trickle tube feeds, Continue goal rate of 50 ml/hr; bowel sounds improved overnight, tolerating current feeds - GI Prophylaxis: Continue Protonix 40 IV daily - Bowel regimen: Polyethylene glycol Shock Liver/Transaminitis - Resolved Severe protein calorie malnutrition - As reflected by hypoalbuminemia - Continue thiamine 250 IV daily; day 08/13 - Zinc and multivitamin supplementation RENAL//ENDOCRINE - Significant positive fluid balance, refrain from additional IV fluids and will adjust after tube feeds reach goal. - Fluid Balance -8050 ml L yesterday +13.2 L Cumulative Hold Lasix today as patient demonstrating good urine output over 24 hours Type 1 Diabetes Mellitus, uncontrolled - Continue Insulin Infusion - noted to nursing that patient keeps glucose control extremely tight at home, in the vicinity of 40 at home Hypocalcemia - 7.2; ical 1.06 - Hold off on calcium gluconate infusion to limit IV fluid load in the setting of positive fluid balance - Follow daily iCal Grave's Disease - TSH 4.4; fT4 1.04; TSI pending HEME/INFECTIOUS DISEASE - Temp 38 overnight - WBC 25, mild improvement from 29 - Hb/Hct 9.2/27, stable - Plt 138, stable Sepsis/Septic Shock secondary to Right Lobar Pneumonia - Blood cultures speciating strep pneumo; pansensitive - Lactate 3.4 today - Procalcitonin improved to 10 - Levaquin and Rocephin x 14 day minimum course Acute thrombocytopenia - Multifactorial likely bone marrow suppression and disease process - Platelet count increased today - HIT screen negative Acute Anemia - Hb 9.8; 14 on arrival - BUN noted to be increasing; considered GI bleed but expected catharsis has not occurred at this time - Suspect anaemia likely secondary to dilutional effect + expected bone marrow suppression from acute illness DVT Prophylaxis: Continue Heparin 5000 s.c TID LINES/IV ACCESS - Right IJ triple lumen catheter - Right antecubital - Left upper arm triple-lumen PICC - 20-gauge IV in left wrist - Right radial arterial line; infiltrated overnight and removed CODE STATUS - DNR DISPOSITION - ICU for invasive ventilatory support - We will continue to revisit goals of care with the family at the bedside today Resident Physician Supervision Note: Dr. Ortiz was resident physician during care of patient. I separately evaluated patient and did history and exam. I discussed the case with the resident and generally agree with the findings and plan. Critical care services delivered from 7:30 to 8:15. Patient overall was doing worse from a neurology perspective as she is not received sedatives and has not had improvement in her mental status. I'm concerned for global hypoxic injury, seizures in the differential obtained EEG to rule out subclinical status. Respiratory status marginally improved, poor oxygenation we will likely undergo bronchoscopy for mucous removal. Has not had bowel movement yet I have personally spent 45 minutes of critical care time in the direct management of this patient. This is a life/limb threatening event. This includes time spent evaluating patient, direct bedside care, chart review, placing orders, interpretation of diagnostic studies, discussion with consultants, patient, and family members, as well as other required patient management activities. This time is exclusive of all separately billable procedures, and teaching time and separate from and in addition to any other critical care service time. Documented By: Juan Joshi DO Consults & Procedures Consultants: Infectious diseases Procedures: None today Data Medications: Current Inpatient Medications Medications (Trade) Dose Ordered Sig/Sarthak Route Start Time Stop Time Status Last Admin Dose Admin Acetaminophen (Tylenol Tab) 650 mg Q4H PRN PO 08/04/16 04:30 09/03/16 04:29 08/04/16 06:35 650 MG Al Hydrox/Mg Hydrox/Simethicone (Maalox Max Susp) 15 ml Q4H PRN PO 08/04/16 04:30 09/03/16 04:29 Magnesium Hydroxide (Milk Of Magnesia Susp) 30 ml Q12H PRN PO 08/04/16 04:30 09/03/16 04:29 Ondansetron HCl (Zofran Inj) 4 mg Q6H PRN IV 08/04/16 04:30 09/03/16 04:29 Nitroglycerin (Nitrostat Tab) 0.4 mg UD PRN SL 08/04/16 04:30 09/03/16 04:29 Polyethylene (Miralax Powder Packet) 17 gm DAILY PRN PO 08/04/16 04:30 09/03/16 04:29 Glucose (Glucose 40% Gel) 15-30 GRAMS 15 GRAMS... UD PRN PO 08/04/16 04:30 09/03/16 04:29 Glucose (Glucose Chew Tab) 4-8 Tablets 4 Tabl... UD PRN PO 08/04/16 04:30 09/03/16 04:29 Dextrose (Dextrose 50% 50ML Syringe) 25-50ML OF 50% DW IV FOR... UD PRN IV 08/04/16 04:30 09/03/16 04:29 08/09/16 06:27 25 ML Glucagon (Glucagon Inj) 1 mg UD PRN SQ 08/04/16 04:30 09/03/16 04:29 Artificial Tears (Lacri-Lube Oph Oint) 1 appln HS OPR 08/04/16 21:00 09/03/16 20:59 08/08/16 20:09 1 APPLN Lisinopril (Zestril Tab) 1.25 mg QAM PO 08/04/16 09:00 09/03/16 08:59 Future Hold Lorazepam (Ativan Tab) 0.5 mg HS PO 08/04/16 21:00 09/03/16 20:59 Future Hold Multivitamins (Multivitamin Tab) 1 tab DAILY PO 08/04/16 09:00 09/03/16 08:59 08/08/16 11:13 1 TAB Simvastatin (Zocor Tab) 5 mg HS PO 08/04/16 21:00 09/03/16 20:59 08/08/16 19:55 5 MG Levofloxacin (Consult) 1 ea UD PRN N/A 08/04/16 05:00 08/19/16 23:59 Miscellaneous Information 1 ea 1 ea UD PRN N/A 08/04/16 10:51 09/03/16 10:50 Pantoprazole Sodium/Syringe (Protonix Inj/ Syringe) 10 ml @ 5 mls/min DAILY@11 IV 08/05/16 11:00 09/04/16 10:59 08/08/16 11:14 5 MLS/MIN Heparin Sodium (Porcine) (Heparin Sq 5000 Unit/0.5ml) 5,000 unit Q8 SQ 08/04/16 22:00 09/03/16 21:59 08/09/16 06:20 5,000 UNIT Ipratropium [place] (Atrovent Hfa Inhaler) 4 puffs Q6H INH 08/04/16 21:00 09/03/16 20:59 08/09/16 08:51 4 PUFFS Levalbuterol (Xopenex Hfa Inhaler) 4 puffs Q6H INH 08/04/16 21:00 09/03/16 20:59 08/09/16 08:50 4 PUFFS Heparin Sodium (Porcine) 5 ml 5 ml PRN PRN FLUSH 08/05/16 00:45 09/04/16 00:44 08/08/16 23:54 5 ML Midazolam HCl (Midazolam 125MG/ 250ML D5w) 250 ml @ 0 mls/hr Q0M PRN IV 08/05/16 09:46 09/04/16 09:45 08/06/16 19:48 10 MLS/HR Insulin Aspart SLIDING SCALE PCHS SC 08/05/16 12:00 09/04/16 11:59 Insulin Human Regular 250 units/ Sodium Chloride 252.5 ml @ 0 mls/hr DAILY@1130 IV 08/05/16 11:30 09/04/16 11:29 08/08/16 17:39 2.8 MLS/HR Amiodarone HCL/ Dextrose 200 ml @ 16.7 mls/hr [id number] IV 08/05/16 23:39 09/04/16 23:38 Future Hold 08/06/16 22:31 16.7 MLS/HR Ceftriaxone Sodium/Dextrose (Rocephin Inj/ Dextrose Add-[place] 50ML) 50 ml @ 100 mls/hr Q24H IV 08/06/16 10:00 08/19/16 23:59 08/08/16 11:14 100 MLS/HR Fentanyl Citrate (Fentanyl Inj) 25 mcg Q2H PRN IV 08/06/16 09:30 08/20/16 09:29 08/08/16 02:15 25 MCG Enteral Nutritional Formula 1000 ml 1,000 ml UD PO 08/06/16 18:45 09/05/16 18:44 08/09/16 07:10 1,000 ML Levofloxacin/Prmx (Levaquin / D5W/ Premixed D5W) 150 ml @ 100 mls/hr Q24H IV 08/07/16 09:00 08/19/16 23:59 08/08/16 11:13 100 MLS/HR Zinc Sulfate (Zinc Sulfate Cap) 220 mg QAM PO 08/08/16 09:00 09/07/16 08:59 08/08/16 11:13 220 MG Ascorbic Acid (Vitamin C Tab) 1,000 mg QAM GT 08/08/16 09:00 09/07/16 08:59 08/08/16 11:13 1,000 MG Thiamine HCl (Vitamin B-1 Tab) 200 mg QAM PO 08/08/16 09:00 09/07/16 08:59 08/08/16 11:13 200 MG Heparin Sodium (Porcine) (Heparin 10 Unit/ ml 5 ml Flush) 5 ml PRN PRN FLUSH 08/08/16 10:45 09/07/16 10:44 08/08/16 23:54 5 ML Metoprolol Tartrate (Lopressor Iv) 5 mg Q4H IV. 08/09/16 00:00 09/08/16 00:00 08/09/16 04:00 5 MG Diltiazem HCl (Cardizem Inj) 10 mg Q4H PRN IV 08/08/16 21:15 09/07/16 21:14 Ketorolac Tromethamine 15 mg 15 mg Q6H PRN IV 08/08/16 21:15 08/13/16 21:14 Acetaminophen/ Empty Bag (Ofirmev IV/ Empty Iv Bag 100ml) 65 ml @ 260 mls/hr Q6H PRN IV 08/08/16 21:15 09/07/16 21:14 Enteral Nutritional Formula 30 ml 30 ml BID PO 08/09/16 09:00 09/08/16 08:59 Morphine Sulfate/ Dextrose (Morphine Sulf/ Nss 250MG/250ML) 250 ml @ 0 mls/hr Q0M PRN IV 08/09/16 10:45 08/23/16 10:44 08/09/16 11:38 2 MLS/HR Scopolamine (Transderm-Scop Patch) 1.5 mg Q72H TD 08/09/16 11:00 09/08/16 10:59 08/09/16 11:00 1.5 MG Miscellaneous (Remove Transderm-Scop Patch) 1 ea Q72H N/A 08/12/16 11:00 09/11/16 10:59 Miscellaneous Information (Check Scopolamine Patch Placement) 1 ea QS N/A 08/09/16 16:00 09/08/16 15:59 I & O: 24-Hour Column 08/09/16 08:00 Intake Total 1932 ml Output Total 2200 ml Balance -268 ml Vital Signs: Date Time Temp Pulse Resp B/P Pulse Ox O2 Delivery O2 Flow Rate FiO2 08/09/16 08:17 37.0 75 36 131/54 94 Mechanical Ventilator 40 08/09/16 07:45 40 08/09/16 06:00 36.7 76 116/44 98 Mechanical Ventilator 40 08/09/16 05:25 40 08/09/16 04:00 40 08/09/16 04:00 93 Mechanical Ventilator 40 08/09/16 04:00 86 140/62 08/09/16 04:00 37.1 88 35 140/62 93 Mechanical Ventilator 40 08/09/16 02:10 40 08/09/16 02:00 37.3 83 37 143/55 94 40 08/09/16 00:00 40 08/09/16 00:00 37.5 83 38 149/57 92 Mechanical Ventilator 40 184/47 08/09/16 00:00 93 Mechanical Ventilator 40 08/08/16 23:52 92 174/47 08/08/16 22:35 40 08/08/16 22:00 38.0 100 38 140/58 93 Mechanical Ventilator 40 08/08/16 20:32 40 08/08/16 20:00 40 08/08/16 20:00 93 Mechanical Ventilator 40 08/08/16 20:00 37.1 97 40 195/49 94 Mechanical Ventilator 40 149/67 08/08/16 19:16 110 200/76 08/08/16 18:00 104 45 199/55 93 145/66 08/08/16 17:35 40 08/08/16 16:00 37.2 99 38 150/58 92 Mechanical Ventilator 35 190/51 08/08/16 16:00 93 Mechanical Ventilator 40 08/08/16 16:00 35 08/08/16 15:50 35 08/08/16 14:31 40 08/08/16 14:00 96 42 190/73 93 08/08/16 12:00 93 Mechanical Ventilator 35 08/08/16 12:00 40 08/08/16 12:00 36.9 94 40 136/60 94 Mechanical Ventilator 35 183/52 Laboratory Results: Last 24 Hours Test 08/08/16 11:43 08/08/16 13:11 08/08/16 13:51 08/08/16 14:41 Bedside Glucose (other) 210 mg/dl 243 mg/dl 250 mg/dl 241 mg/dl Test 08/08/16 15:48 08/08/16 15:55 08/08/16 15:56 08/08/16 16:44 Blood Gas Sample Site Art Line Bedside Blood Gas pH (LAB) 7.41 Bedside Blood Gas pCO2 (LAB) 51 mmHg Bedside Blood Gas pO2 (LAB) 71 mmHg Bedside Blood Gas HCO3 (LAB) 32 meq/L Bedside Blood Gas Total CO2 34 mEq/l Bedside Blood Gas Base Excess (LAB) 7.0 meq/L Bedside Blood Gas O2 Saturation 94.0 % Bennie Test NA Oxygen Delivery Device Ventilator Bedside Oxygen Rate (breaths/min) 34 Blood Gas Minute Ventilation 12.4 Bedside FiO2 40 % Blood Gas Tidal Volume 330 Blood Gas PEEP 14 Lactic Acid Level 3.6 mmol/L Bedside Glucose (other) 238 mg/dl 239 mg/dl Test 08/08/16 17:34 08/08/16 17:38 08/08/16 18:43 08/08/16 20:07 Bedside Glucose (other) 229 mg/dl 221 mg/dl Blood Gas Sample Site Art Line Bedside Blood Gas pH (LAB) 7.46 Bedside Blood Gas pCO2 (LAB) 53 mmHg Bedside Blood Gas pO2 (LAB) 55 mmHg Bedside Blood Gas HCO3 (LAB) 37 meq/L Bedside Blood Gas Total CO2 39 mEq/l Bedside Blood Gas Base Excess (LAB) 13.0 meq/L Bedside Blood Gas O2 Saturation 88.0 % Bennie Test NA Oxygen Delivery Device Ventilator Bedside Oxygen Rate (breaths/min) 34 Blood Gas Minute Ventilation 12.6 Bedside FiO2 35 % Blood Gas Tidal Volume 330 Blood Gas PEEP 14 Bedside Glucose 208 mg/dl Test 08/08/16 22:05 08/08/16 22:14 08/08/16 23:48 08/09/16 01:19 Bedside Glucose 209 mg/dl 176 mg/dl 169 mg/dl Blood Gas Sample Site Art Line Bedside Blood Gas pH (LAB) 7.40 Bedside Blood Gas pCO2 (LAB) 56 mmHg Bedside Blood Gas pO2 (LAB) 74 mmHg Bedside Blood Gas HCO3 (LAB) 35 meq/L Bedside Blood Gas Total CO2 37 mEq/l Bedside Blood Gas Base Excess (LAB) 10.0 meq/L Bedside Blood Gas O2 Saturation 94.0 % Bennie Test NA Oxygen Delivery Device Ventilator Bedside Oxygen Rate (breaths/min) 34 Blood Gas Minute Ventilation 12.2 Bedside FiO2 40 % Blood Gas Tidal Volume 330 Blood Gas PEEP 14 Test 08/09/16 02:17 08/09/16 03:05 08/09/16 03:56 08/09/16 05:11 Bedside Glucose 136 mg/dl 145 mg/dl 132 mg/dl 112 mg/dl Test 08/09/16 05:25 08/09/16 06:01 08/09/16 06:54 08/09/16 08:28 White Blood Count 25.19 K/uL Red Blood Count 3.01 M/uL Hemoglobin 9.2 g/dL Hematocrit 27.4 % Mean Corpuscular Volume 91.0 fL Mean Corpuscular Hemoglobin 30.6 pg Mean Corpuscular Hemoglobin Concent 33.6 g/dl Platelet Count 138 K/uL Mean Platelet Volume 10.9 fL RDW Standard Deviation 48.6 fL RDW Coefficient of Variation 14.6 % Neutrophils % (Manual) 92.2 % Lymphocytes % (Manual) 5.2 % Monocytes % (Manual) 0.9 % Myelocytes % 1.7 % Neutrophils # (Manual) 23.23 K/uL Total Absolute Neutrophils 23.23 K/uL Lymphocytes # (Manual) 1.31 K/uL Total Absolute Lymphocytes 1.31 K/uL Monocytes # (Manual) 0.23 K/uL Myelocytes # 0.43 K/uL Red Blood Cell Morphology Unremarkable Sodium Level 142 mmol/L Potassium Level 4.3 mmol/L Chloride Level 103 mmol/L Carbon Dioxide Level 34 mmol/L Anion Gap 5.0 mmol/L Blood Urea Nitrogen 46 mg/dl Creatinine 0.66 mg/dl Est Creatinine Clear Calc Drug Dose 77.4 ml/min Estimated GFR () 103.0 Estimated GFR (Non- 88.9 BUN/Creatinine Ratio 70.2 Random Glucose 117 mg/dl Lactic Acid Level 2.1 mmol/L Calcium Level 7.2 mg/dl Ionized Calcium 1.06 mmol/l Phosphorus Level 3.7 mg/dl Magnesium Level 2.5 mg/dl Procalcitonin 6.67 ng/mL Bedside Glucose 98 mg/dl 179 mg/dl 192 mg/dl Test 08/09/16 09:12 08/09/16 10:06 Bedside Glucose 222 mg/dl 223 mg/dl
[2016-08-09] MEDS: CHECK SCOPOLAMINE PATCH PLACEMENT SCH (15:21)
--- NOTE | 2016-08-09 15:47 | Progress Note ---
Subjective Date of Service: Aug 09, 2016. Subjective Pt evaluation today including: conversation w/ patient, physical exam, chart review, lab review, review of studies, conversation w/ loss prevention consultant, review of inpatient medication list patient was terminally extubated at 1125 today. Problem List Medical Problems: (1) Ankle fracture, left Status: Acute (2) Dyslipidemia Status: Chronic (3) Hypoxia Status: Acute (4) Osteoporosis Nos Status: Chronic (5) Pneumonia involving right lung Status: Acute (6) Type 1 diabetes Status: Chronic Review of Systems Constitutional: + problem reported (NOT ABLE TO BE REVIEWED B/C UNRESPONSIVE) Eyes: No discharge ENT: + nasal symptoms Female : + incontinence Psychiatric: No insomnia Objective Vital Signs Date Time Temp Pulse Resp B/P Pulse Ox O2 Delivery O2 Flow Rate FiO2 08/09/16 14:00 35.8 124 101/44 89 Nasal Cannula 4.0 08/09/16 12:00 36.6 84 28 131/49 89 Nasal Cannula 4.0 08/09/16 10:00 36.5 84 30 135/55 94 Mechanical Ventilator 40 08/09/16 08:17 37.0 75 36 131/54 94 Mechanical Ventilator 40 08/09/16 08:00 40 08/09/16 08:00 94 Mechanical Ventilator 40 08/09/16 07:45 40 08/09/16 06:00 36.7 76 116/44 98 Mechanical Ventilator 40 08/09/16 05:25 40 08/09/16 04:00 40 08/09/16 04:00 93 Mechanical Ventilator 40 08/09/16 04:00 86 140/62 08/09/16 04:00 37.1 88 35 140/62 93 Mechanical Ventilator 40 08/09/16 02:10 40 08/09/16 02:00 37.3 83 37 143/55 94 40 08/09/16 00:00 40 08/09/16 00:00 37.5 83 38 149/57 92 Mechanical Ventilator 40 184/47 08/09/16 00:00 93 Mechanical Ventilator 40 08/08/16 23:52 92 174/47 08/08/16 22:35 40 08/08/16 22:00 38.0 100 38 140/58 93 Mechanical Ventilator 40 08/08/16 20:32 40 08/08/16 20:00 40 08/08/16 20:00 93 Mechanical Ventilator 40 08/08/16 20:00 37.1 97 40 195/49 94 Mechanical Ventilator 40 149/67 08/08/16 19:16 110 200/76 08/08/16 18:00 104 45 199/55 93 145/66 08/08/16 17:35 40 08/08/16 16:00 37.2 99 38 150/58 92 Mechanical Ventilator 35 190/51 08/08/16 16:00 93 Mechanical Ventilator 40 08/08/16 16:00 35 08/08/16 15:50 35 Physical Exam General Appearance: + pertinent finding (UNRESPONSIVE) Eyes: + pertinent finding (TIEN PUPILS SLUGGISHED) Respiratory/Chest: + decreased breath sounds Cardiovascular: regular rate, rhythm Abdomen: + abnormal bowel sounds (decreased) Neurologic/Psychiatric: + pertinent finding (no facial droop, but unresponsive) Skin: warm/dry Laboratory Results Last 24 Hours Test 08/08/16 15:48 08/08/16 15:55 08/08/16 15:56 08/08/16 16:44 Blood Gas Sample Site Art Line Bedside Blood Gas pH (LAB) 7.41 Bedside Blood Gas pCO2 (LAB) 51 mmHg Bedside Blood Gas pO2 (LAB) 71 mmHg Bedside Blood Gas HCO3 (LAB) 32 meq/L Bedside Blood Gas Total CO2 34 mEq/l Bedside Blood Gas Base Excess (LAB) 7.0 meq/L Bedside Blood Gas O2 Saturation 94.0 % Bennie Test NA Oxygen Delivery Device Ventilator Bedside Oxygen Rate (breaths/min) 34 Blood Gas Minute Ventilation 12.4 Bedside FiO2 40 % Blood Gas Tidal Volume 330 Blood Gas PEEP 14 Lactic Acid Level 3.6 mmol/L Bedside Glucose (other) 238 mg/dl 239 mg/dl Test 08/08/16 17:34 08/08/16 17:38 08/08/16 18:43 08/08/16 20:07 Bedside Glucose (other) 229 mg/dl 221 mg/dl Blood Gas Sample Site Art Line Bedside Blood Gas pH (LAB) 7.46 Bedside Blood Gas pCO2 (LAB) 53 mmHg Bedside Blood Gas pO2 (LAB) 55 mmHg Bedside Blood Gas HCO3 (LAB) 37 meq/L Bedside Blood Gas Total CO2 39 mEq/l Bedside Blood Gas Base Excess (LAB) 13.0 meq/L Bedside Blood Gas O2 Saturation 88.0 % Bennie Test NA Oxygen Delivery Device Ventilator Bedside Oxygen Rate (breaths/min) 34 Blood Gas Minute Ventilation 12.6 Bedside FiO2 35 % Blood Gas Tidal Volume 330 Blood Gas PEEP 14 Bedside Glucose 208 mg/dl Test 08/08/16 22:05 08/08/16 22:14 08/08/16 23:48 08/09/16 01:19 Bedside Glucose 209 mg/dl 176 mg/dl 169 mg/dl Blood Gas Sample Site Art Line Bedside Blood Gas pH (LAB) 7.40 Bedside Blood Gas pCO2 (LAB) 56 mmHg Bedside Blood Gas pO2 (LAB) 74 mmHg Bedside Blood Gas HCO3 (LAB) 35 meq/L Bedside Blood Gas Total CO2 37 mEq/l Bedside Blood Gas Base Excess (LAB) 10.0 meq/L Bedside Blood Gas O2 Saturation 94.0 % Bennie Test NA Oxygen Delivery Device Ventilator Bedside Oxygen Rate (breaths/min) 34 Blood Gas Minute Ventilation 12.2 Bedside FiO2 40 % Blood Gas Tidal Volume 330 Blood Gas PEEP 14 Test 08/09/16 02:17 08/09/16 03:05 08/09/16 03:56 08/09/16 05:11 Bedside Glucose 136 mg/dl 145 mg/dl 132 mg/dl 112 mg/dl Test 08/09/16 05:25 08/09/16 06:01 08/09/16 06:54 08/09/16 08:28 White Blood Count 25.19 K/uL Red Blood Count 3.01 M/uL Hemoglobin 9.2 g/dL Hematocrit 27.4 % Mean Corpuscular Volume 91.0 fL Mean Corpuscular Hemoglobin 30.6 pg Mean Corpuscular Hemoglobin Concent 33.6 g/dl Platelet Count 138 K/uL Mean Platelet Volume 10.9 fL RDW Standard Deviation 48.6 fL RDW Coefficient of Variation 14.6 % Neutrophils % (Manual) 92.2 % Lymphocytes % (Manual) 5.2 % Monocytes % (Manual) 0.9 % Myelocytes % 1.7 % Neutrophils # (Manual) 23.23 K/uL Total Absolute Neutrophils 23.23 K/uL Lymphocytes # (Manual) 1.31 K/uL Total Absolute Lymphocytes 1.31 K/uL Monocytes # (Manual) 0.23 K/uL Myelocytes # 0.43 K/uL Red Blood Cell Morphology Unremarkable Sodium Level 142 mmol/L Potassium Level 4.3 mmol/L Chloride Level 103 mmol/L Carbon Dioxide Level 34 mmol/L Anion Gap 5.0 mmol/L Blood Urea Nitrogen 46 mg/dl Creatinine 0.66 mg/dl Est Creatinine Clear Calc Drug Dose 77.4 ml/min Estimated GFR () 103.0 Estimated GFR (Non- 88.9 BUN/Creatinine Ratio 70.2 Random Glucose 117 mg/dl Lactic Acid Level 2.1 mmol/L Calcium Level 7.2 mg/dl Ionized Calcium 1.06 mmol/l Phosphorus Level 3.7 mg/dl Magnesium Level 2.5 mg/dl Procalcitonin 6.67 ng/mL Bedside Glucose 98 mg/dl 179 mg/dl 192 mg/dl Test 08/09/16 09:12 08/09/16 10:06 Bedside Glucose 222 mg/dl 223 mg/dl Assessment and Plan 71 year old female admitted on 08/04/2016 with acute shortness of breath, admitted to the ICU servicewith Acute Hypoxemic Respiratory Failure likely secondary to severe pneumonia sepsis and septic shock was terminal extubated - Acute Hypoxemic Respiratory Failure likely secondary to severe pneumonia sepsis and septic shock, remains critical - Severe ARDS - Sepsis with Septic Shock from pneumonia, - Right Lobar Pneumonia, on nebulizer treatment - Acute renal injury, - possible severe metabolic encephalopathy with unresponsives after remove sedation. - Episodes of A. fib with RVR, History of atrial fibrillation with RVRl: Continue follow-up - Abnormal CXR, suspicious for possible mass - Suspected Emphysema on CXR - History of supraventricular tachycardia - Grave's Disease - Protein calorie malnutrition and hypoalbuminemia, continue NG tube feeding - likely have a very poor prognosis as she has not been improving significantly and still very critical with relation to acute respiratory distress syndrome, associated multiple organ failure, such as lung, brain, and severe sepsis. Continued [facility] stay due to: multiple IV medications needed Discharge planning: uncertain
[2016-08-09] MEDS ORDERED: LORAZEPAM 2 MG/ML 1 ML VIAL IV PRN (18:45)
[2016-08-10] MEDS: CHECK SCOPOLAMINE PATCH PLACEMENT SCH ×2 (08:04)
--- NOTE | 2016-08-10 08:28 | Family Medicine Progress Note ---
Progress Note Date of Service Aug 10, 2016.
--- NOTE | 2016-08-10 09:58 | Death Pronouncement Note ---
Pronouncement Note Date & Time of Aug 10, 2016. 8:25am Pronouncement At time of pronouncement the patients pupils were fixed and dilated, there was no spontaneous respiratory effort, no palpable pulse, no audible heart tones, and no response to pain or voice. Condolences were offered to the family.
--- NOTE | 2016-08-10 15:30 | Death Summary ---
Summary of Admission Date Aug 04, 2016 at 04:37 (Alka. Jaimes MD) Date & Time of Aug 10, 2016. 8:25am (Alka. Jaimes MD) Cause of Sepsis with septic shock secondary to pneumococcal pneumonia (Alka. Jaimes MD) Secondary Diagnoses Diabetes, Grave's Disease (Alka. Jaimes MD) Hospital Course Patient is 71 year old female with PMHx of type 1 DM, dyslipidemia, and Grave's disease who presented to the ED on 08/04 with a 5 day history of worsening "flu- like symptoms" including subjective fever, chills, diarrhea, chest pain, dyspnea at rest and on exertion, weakness, and decreased appetite. Upon arrival at the ED, she was afebrile and hypoxic at 86% on room air. Chest x-ray showed consolidations in the right mid and lower lobes with right pleural effusion suspicious for pneumonia, at which point she was started on IV Levaquin, Zosyn and Vancomycin. She remained hypoxic despite 10 L by facemask. Review of labs and vitals were consistent with sepsis and goal-directed therapy was initiated in the ICU. After review of radiographs with cardiothoracic surgery and radiology, there was concern for possible underlying mass in the right lung, causing obstruction with secondary atelectasis/consolidation. Central access and invasive BP monitoring initiated due to hypotension. ID was consulted and antibiotics were initially kept broad and then narrowed appropriately. Decision was made to intubate patient and secure adequate airway. She was intubated on and seen by Dr. Jimenez who did a bronchoscopy to rule out possible pneumonia vs. malignancy. No lesions were seen upon bronchoscopy. Bronchial washings and blood cultures were positive for streptococcus pneumoniae. On 08/05 , patient became tachycardia with heart rates in 160-190 and systolic blood pressures in the 50-60. She was cardioverted out of SVT to NSR using 200J, 120J , and 200J and started on amiodarone. With incremental improvement in CXR, no surgical intervention was implemented. However, patient overall was doing worse from a neurology perspective, as despite discontinuing sedatives, she had not had improvement in her mental status. There was concern for global hypoxic injury. Respiratory status marginally improved, but poor oxygenation required bronchoscopy for mucous removal. Repeat blood cultures were negative for infection. CT show no intracranial pathology. EEG showed evidence for a moderate to severe generalized cerebral dysrhythmia with a rather fast unreactive alpha posteriorly consistent with "alpha coma". It was explained to family that this typically carries a poor prognosis. An extensive discussion with the patient's , daughter, and son was had, with all in agreement that high functional status was a major priority in the patient's life and given her current clinical condition and likelihood of needing extensive rehabilitation even if she was able to overcome her critical illness, the quality of life would not be acceptable to her. The entire family was in agreement to transition comfort measures and withdraw life-sustaining treatment. The patient was terminally extubated at 11:25am on 08/09 and provided comfort care. Patient on 08/10/16 at 8:25am. (Alka. Jaimes MD) Resident Physician Supervision Note: This patient was placed on comfort care 08/09/16 and prior to my arrival in the hospital on 08/10/16. I had not seen the patient during any part of her hospitalization, as she was previously cared for by Dr. Jackman. I reviewed the certificate completed by Dr. Jaimes and reviewed the hospital chart to determine a cause of . Documented By: Amado Carr (Amado Carr.,D.O.)
[2016-08-10 20:35] LABS: MICROSOMAL AB 47 IU/ML (<9); TSI <89 % baseline (<140)
== END 2016-08-10 10:15 | disposition expired | DRG 853 ==
LOC: ENRESERVTM → ENRESERVDT → C.EDB 02:26 → C.MSICU 04:37 → C.4E 08-09 19:59
PROVIDERS: ADMIT Student in an Organized Health Care Education/Training Program; ATTEND Hospitalist
PROC: 5A1955Z Respiratory Ventilation, Greater than 96 Consecutive Hours (ICD-10-PCS; principal; 2016-08-04)
PROC: 0BH18EZ Insertion of Endotracheal Airway into Trachea, Via Natural or Artificial Opening Endoscopic (ICD-10-PCS; principal; 2016-08-04)
PROC: 0BBF8ZX Excision of Right Lower Lung Lobe, Via Natural or Artificial Opening Endoscopic, Diagnostic (ICD-10-PCS; 2016-08-04)
PROC: 0B9J8ZZ Drainage of Left Lower Lung Lobe, Via Natural or Artificial Opening Endoscopic (ICD-10-PCS; 2016-08-04)
PROC: 0B9F8ZZ Drainage of Right Lower Lung Lobe, Via Natural or Artificial Opening Endoscopic (ICD-10-PCS; 2016-08-04)
PROC: 0B9J8ZX Drainage of Left Lower Lung Lobe, Via Natural or Artificial Opening Endoscopic, Diagnostic (ICD-10-PCS; 2016-08-04)
PROC: 0B9F8ZX Drainage of Right Lower Lung Lobe, Via Natural or Artificial Opening Endoscopic, Diagnostic (ICD-10-PCS; 2016-08-04)
PROC: 02HV33Z Insertion of Infusion Device into Superior Vena Cava, Percutaneous Approach (ICD-10-PCS; 2016-08-04)
PROC: 5A2204Z Restoration of Cardiac Rhythm, Single (ICD-10-PCS; 2016-08-04)
PROC: 03HY32Z Insertion of Monitoring Device into Upper Artery, Percutaneous Approach (ICD-10-PCS; 2016-08-04)
PROC: B246ZZ3 Ultrasonography of Right and Left Heart, Intravascular (ICD-10-PCS; 2016-08-04)
DX: A40.3 Sepsis due to Streptococcus pneumoniae (principal); J13 Pneumonia due to Streptococcus pneumoniae; Z51.5 Encounter for palliative care; J96.01 Acute respiratory failure with hypoxia; E87.2 Acidosis; N17.9 Acute kidney failure, unspecified; R65.21 Severe sepsis with septic shock; E10.9 Type 1 diabetes mellitus without complications; E46 Unspecified protein-calorie malnutrition; I47.1 Supraventricular tachycardia; E05.00 Thyrotoxicosis with diffuse goiter without thyrotoxic crisis or storm; E78.00 Pure hypercholesterolemia, unspecified; M81.0 Age-related osteoporosis without current pathological fracture; Z83.3 Family history of diabetes mellitus; Z88.2 Allergy status to sulfonamides; I10 Essential (primary) hypertension; I48.91 Unspecified atrial fibrillation; J43.9 Emphysema, unspecified; Z66 Do not resuscitate; M85.80 Other specified disorders of bone density and structure, unspecified site; R93.1 Abnormal findings on diagnostic imaging of heart and coronary circulation; D64.9 Anemia, unspecified; S82.899A Other fracture of unspecified lower leg, initial encounter for closed fracture; X58.XXXA Exposure to other specified factors, initial encounter; Y92.009 Unspecified place in unspecified non-institutional (private) residence as the place of occurrence of the external cause